=== PATIENT | male | born 1935 | race Caucasian/White ===

== ENCOUNTER 2024-07-27 12:53 | Inpatient (IN) | payer MEDICARE, SELFPAY ==
[2024-07-27] VITALS (26 sets, daily range): BP systolic 107–166; BP diastolic 67–117; PULSE 95–132; RESP 16–37; TEMP 36.6–38.8; O2SAT 90–100; BMI 28.8
--- NOTE | ~2024-07-27 | CT_ITS ---
CLINICAL INDICATION: Flank pain COMPARISON: None. TECHNIQUE: Multiple contiguous axial images of the abdomen and pelvis were performed without the admi nistration of intravenous contrast The dose-length product (DLP) was 706.54 mGy-cm. Automated exposure control and iterative reconstruction technique were employed. FINDINGS/OBSERVATIONS: Visualized lower thorax: Interstitial thickening with bibasilar atelectasis. The heart is enlarged, without pericardial effusion. Small hiatal hernia is present. Liver: The liver demonstrates homogeneous attenuation and is not enlarged measuring 18 cm in longitudinal di mension. Gallbladder and biliary system: The gallbladder is distended, and otherwise unremarkable. Pancreas: Limited evaluation of the pancreas secondary to the lack of intravenous contrast. Spleen: The spleen demonstrates homogeneous attenuation and is not enlarged measuring 11 cm in longitudinal d imension. Kidneys: Left-sided hydroureteronephrosis extending to the distal left ureter where a 4 mm calculus is identif ied. Additional calculus is identified along the base of the bladder, to the left of midline measuring 3.7 mm. An additional calculus is identified within the bladder, to the right of midline measuring 2 mm. Bilateral hydroureteronephrosis is identified. Multiple nonobstructing left renal calculi are identified. Multiple areas of decreased attenuation are identified within the bilateral kidneys, for which focuse d ultrasound may be performed for confirmation. Multiple anechoic avascular foci within the bilateral kidneys, likely representing simple cysts. Adrenal glands: Unremarkable Gastrointestinal tract: Fecal stasis within the colon. Appendix: The appendix is not definitively visualized. However, no pericecal inflammatory change is identified suggest the presence of acute appendicitis. Vasculature: Only trace calcified atherosclerotic disease is present. Lymph nodes: Limited evaluation without intravenous contrast. Pelvic structures: The bladder is distended, and otherwise unremarkable. The prostate gland is enlarged and contains bulky calcifications and demonstrates mass effect on the base of the bladder. Body wall and musculoskeletal: Small fat-containing umbilical hernia. Age-indeterminate fracture at the level of T11, as detailed above. IMPRESSION: Bilateral hydroureteronephrosis secondary to calculi within the left-sided ureter as well as dependen t within the bladder (possibly recently passed). Reviewed, dictated and finalized at location A. LER OPERATOR IMPRESSION: Bilateral hydroureteronephrosis secondary to calculi within the left-sided uret er as well as dependent within the bladder (possibly recently passed).
--- NOTE | ~2024-07-27 | XR_ITS ---
EXAMINATION: XR retrograde pyelo w/stent BI DATE: 07/27/2024 16:50 INSPECTOR PACKER INDICATION: BILATERAL STONES . TECHNIQUE: 8 fluoroscopic images of the abdomen and pelvis were obtained during bilateral retrograde pyelography with stent placement, performed by Dr. Constantino. I was not present during the procedure. Fluoroscopy exposure time was 44.4 seconds. Air Kerma 18.73 mGy. DAP 0.80815 mGym2. COMPARISON: CT abdomen pelvis, same date FINDINGS/IMPRESSION: Fluoroscopic documentation of bilateral retrograde pyelography with stent placement. Please refer to the operative note for complete procedural details . Reviewed, dictated and finalized at location K. ECTOR PACKER
--- NOTE | ~2024-07-27 | XR_ITS ---
CHEST RADIOGRAPH CLINICAL HISTORY: weakness . COMPARISON: None available TECHNIQUE: Single portable view of the chest. FINDINGS The cardiomediastinal silhouette is unremarkable. Coarse interstitial lung markings within the bilateral lung bases, likely chronic. No focal infiltrate or effusion is present IMPRESSION: No focal infiltrate or effusion. Reviewed, dictated and finalized at location A. RAL HOUSE WORKER
--- NOTE | ~2024-07-27 | US_ITS ---
EXAMINATION: US renal BI DATE: 07/28/2024 10:30 INDICATION: Acute kidney injury. TECHNIQUE: Multiple ultrasound grayscale images of the kidneys were obtained. COMPARISON: CT abdomen and pelvis 07/27/2024 FINDINGS: The right kidney measures 12.8 x 5.1 x 3.6 cm. The left kidney measures 12.4 x 6.3 x 5.4 cm. The kidn eys demonstrate normal parenchymal echogenicity. There are cysts in the kidneys measuring up to 5.4 c m on the left. There is no hydronephrosis. The bladder is decompressed by a Gregory catheter. IMPRESSION: 1. Normal kidney sizes. No hydronephrosis. Reviewed, dictated and finalized at location A. L INSTALLER INSPECTOR
--- NOTE | 2024-07-27 12:57 | ECG_ITS ---
Test Date: 2024-07-27 12:59:49 Measurements Intervals [place] Rate: 120 P: 47 NM: 185 QRS: -34 QRSD: 83 T: -16 QT: 325 QTc: 460 Interpretive Statements SINUS TACHYCARDIA LEFT AXIS DEVIATIO POOR R WAVE PROGRESSION T WAVE ABNORMALITY IN INFERIOR LEADS- CONSIDER ISCHEMIA BASELINE ARTIFACT- I, III, AVR, AVL, AVF, V1-V6 ABNORMAL ECG No previous ECG available for comparison Electronically Signed On 07-27-2024 13:43:24 [employer] E[employer] DEVELOPER by Gautam Thompson D.O.
[2024-07-27] MEDS: SODIUM CHLORIDE 0.9% IV 1,000 ML 150 ML IV CONT (13:08)
[2024-07-27 13:24] LABS: Alanine Aminotransferase 61 U/L (6-50); Albumin Level 4.2 g/dL (3.5-5.1); Alkaline Phosphatase 78 U/L (38-126); Anion Gap 17 mmol/L (4-12); Aspartate Amino Transferase 90 U/L (17-59); Bilirubin,Total 5.8 mg/dL (0.2-1.3); Blood Urea Nitrogen 49 mg/dL (9-20); Calcium 9.5 mg/dL (8.4-10.2); Carbon Dioxide 16 mmol/L (22-30); Chloride 111 mmol/L (98-107); Estimated CRCL calculation 18 ml/min; Estimated Glomerular Filt Rate 21; Glucose 171 mg/dL (65-110); Potassium 4.5 mmol/L (3.4-5.0); Sodium 144 mmol/L (137-145)
[2024-07-27 13:41] LABS: Add Urine Microscopic? YES; Amorphous Sediment Urine Few; Appearance Urine Turbid (Clear); Bacteria Urine 4+ /hpf; Bilirubin Urine Negative (Negative); Blood Urine 2+ (Negative); Color Urine Yellow (Yellow); Glucose Urine UA Negative (Negative); Ketones Urine Trace mg/dL (Negative); Leukocyte Esterase Ur 3+ LEU/UL (Negative); Need Manual Microscopic Reviewed; Nitrate Urine Negative (Negative); Protein Urine 2+ mg/dL (Negative); Specific Grav Ur 1.012 (1.001-1.035); Squamous Epithelial Cell Urine None Seen /hpf (Few); WBC Urine >100 /hpf (0-3); pH Urine 8.5 (5.0-9.0)
[2024-07-27 14:03] LABS: Influenza A QL RT-PCR Negative (Negative); Influenza B QL RT-PCR Negative (Negative); RSV RNA, RT-PCR Negative (Negative); SARS-CoV-2 RNA PCR Negative (Negative)
[2024-07-27 14:23] LABS: Hematocrit 46.6 % (42.0-52.0); Mean Corpuscular HGB Conc 36.5 g/dl (32-36); Mean Corpuscular Hemoglobin 34.4 pg (26-34); Mean Corpuscular Volume 94.3 fl (80-100); Mean Platelet Volume 10.3 fl (7.4-10.4); Platelet Count Result 246 k/mm3 (150-375); Red Blood Count 4.94 M/mm3 (4.6-6.20); White Blood Count 17.7 K/mm3 (4.5-10.0)
[2024-07-27 14:54] LABS: Band Neutrophils Percent 5 % (0-6); Lymphocytes Absolute Manual 0.35 K/mm3 (1.1-4.5); Monocytes Absolute Manual 1.23 K/mm3 (0.1-0.90); Monocytes Percent Manual 7 % (3-9); Neutrophils Percent Manual 86 % (46-73); Platelet Estimate Adequate (Adequate); Total Cells Counted 100
[2024-07-27 14:55] LABS: Schistocytes None Seen
--- NOTE | 2024-07-27 14:55 | ED_ITS ---
HPI - General Adult General Chief complaint: Weakness Stated complaint: weakness, fever Time Seen by Provider: 07/27/24 13:03 Source: patient Mode of arrival: EMS Limitations: no limitations History of Present Illness HPI narrative: 88-year-old with a history of hypertension, BPH here with a complaint of having fever, lower abdominal discomfort and dysuria for the last few days. Family noticed this morning he is found to be very lethargic. He denies any nausea or vomiting. Denies any cough or shortness of breath or chest pain. Onset (ago): day(s) (1) Location: abdomen Severity: moderate Pain Consistency: constant Relieving factors: none Exacerbating factors: none Associated symptoms: weakness Treatments prior to arrival: none Related Data Allergies Allergy/AdvReac Type Severity Reaction Status Date / Time No Known Allergies Allergy Verified 07/27/24 13:05 Review of Systems 2 Review of Systems: All systems reviewed & are unremarkable except as noted in HPI and below Constitutional: Constitutional: Reports no additional constitutional complaints Eyes: Eyes: Reports no additional eye complaints ENT: Reports system reviewed and no additional complaints, except as documented Cardiovascular: Cardiovascular: Reports no additional cardiovascular complaints Respiratory: Respiratory: Reports no additional respiratory complaints Gastrointestinal: Gastrointestinal: Reports as per HPI Genitourinary: Genitourinary: Reports as per HPI Integumentary/Breasts: Skin/Breast: Reports system reviewed and no additional complaints, except as docu Neurologic: Reports system reviewed and no additional complaints, except as documented Endocrine: Endocrine: Reports no additional endocrine complaints Exam 2 Narrative: GENERAL: Well-appearing, well-nourished, and in no acute distress. HEAD: Normocephalic, atraumatic. EYES: PERRLA and EOMI. ENT: Nares clear, no rhinorrhea or epistaxis. Mucous membranes moist. NECK: Supple. CHEST: Clear to auscultation. No respiratory distress. HEART: Regular rate and rhythm. No murmur heard. Normal peripheral pulses. ABDOMEN: Soft, supra pubic tendeness , nondistended, normal active bowel sounds. EXTREMITIES: Normal range of motion. No edema. SKIN: Warm, dry, no rash. NEURO: No focal deficits. Alert and oriented x3. PSYCH: Normal mood and affect. Course Course Emergency Course: Inform patient about the lab work, CT findings. Discussed with the hospitalist will accept the patient consult urology Vital Signs Vital signs: Vital Signs Temperature 37.4 C 07/27/24 12:49 Pulse Rate 119 H 07/27/24 12:49 Respiratory Rate 32 H 07/27/24 12:49 Blood Pressure 145/91 H 07/27/24 12:49 Pulse Oximetry 92 07/27/24 12:49 Oxygen Delivery Nasal Cannula 07/27/24 12:49 Oxygen Flow Rate 2 07/27/24 12:49 Temperature 37.4 C 07/27/24 12:49 Pulse Rate 108 H 07/27/24 15:11 Respiratory Rate 18 07/27/24 15:11 Blood Pressure 131/92 H 07/27/24 15:11 Pulse Oximetry 95 07/27/24 15:11 Oxygen Delivery Nasal Cannula 07/27/24 13:07 Oxygen Flow Rate 2 07/27/24 13:07 Medical Decision Making Medical Records Medical records reviewed: Yes I reviewed the external patient's medical records. Vital Signs Vital Signs: Vital Signs Temperature 37.4 C 07/27/24 12:49 Pulse Rate 119 H 07/27/24 12:49 Respiratory Rate 32 H 07/27/24 12:49 Blood Pressure 145/91 H 07/27/24 12:49 Pulse Oximetry 92 07/27/24 12:49 Oxygen Delivery Nasal Cannula 07/27/24 12:49 Oxygen Flow Rate 2 07/27/24 12:49 Temperature 37.4 C 07/27/24 12:49 Pulse Rate 108 H 07/27/24 15:11 Respiratory Rate 18 07/27/24 15:11 Blood Pressure 131/92 H 07/27/24 15:11 Pulse Oximetry 95 07/27/24 15:11 Oxygen Delivery Nasal Cannula 07/27/24 13:07 Oxygen Flow Rate 2 07/27/24 13:07 Lab Data Lab results reviewed: Yes I reviewed the patient's lab results. 07/27/24 13:04 07/27/24 13:04 Labs: Lab Results 07/27/24 07/27/24 07/27/24 Range/Units 13:04 13:19 15:16 WBC 17.7 H (4.5-10.0) K/mm3 RBC 4.94 (4.6-6.20) M/mm3 Hgb 17.0 (14.0-18.0) g/dL Hct 46.6 (42.0-52.0) % MCV 94.3 (80-100) fl MCH 34.4 H (26-34) pg MCHC 36.5 H (32-36) g/dl RDW 14.0 (11.5-14.5) % Plt Count 246 (150-375) k/mm3 MPV 10.3 (7.4-10.4) fl Immature Gran % (Auto) Not Reportable Neut % (Auto) Not Reportable Lymph % (Auto) Not Reportable [place] % (Auto) Not Reportable Eos % (Auto) Not Reportable Baso % (Auto) Not Reportable Lymph # (Auto) Not Reportable [place] # (Auto) Not Reportable Eos # (Auto) Not Reportable Baso # (Auto) Not Reportable Abs Immat Gran (auto) Not Reportable Absolute Neuts (auto) Not Reportable Absolute Nucleated RBC Not Reportable Total Counted 100 Neutrophils % (Manual) 86 H (46-73) % Band Neutrophils % 5 (0-6) % Lymphocytes % (Manual) 2.0 L (18-44) % Monocytes % (Manual) 7 (3-9) % Nucleated RBC % Not Reportable Abs Neuts (Manual) 16.10 H (1.3-6.7) K/mm3 Abs Lymphs (Manual) 0.35 L (1.1-4.5) K/mm3 Abs Monocytes (Manual) 1.23 H (0.1-0.90) K/mm3 Platelet Estimate Adequate (Adequate) Schistocytes None seen Sodium 144 (137-145) mmol/L Potassium 4.5 (3.4-5.0) mmol/L Chloride 111 H (98-107) mmol/L Carbon Dioxide 16 L (22-30) mmol/L Anion Gap 17 H (4-12) mmol/L BUN 49 H (9-20) mg/dL Creatinine 2.82 H (0.7-1.3) mg/dL Estim Creat Clear Calc 18 ml/min Estimated GFR 21 L (59 - ) Glucose 171 H (65-110) mg/dL Lactic Acid 2.0 (0.7-2.0) mmol/L Calcium 9.5 (8.4-10.2) mg/dL Total Bilirubin 5.8 H (0.2-1.3) mg/dL Direct Bilirubin 0.6 H (0-0.3) mg/dL Indirect Bilirubin 4.4 H (0-1.1) mg/dL AST 90 H (17-59) U/L ALT 61 H (6-50) U/L Alkaline Phosphatase 78 (38-126) U/L Total Creatine Kinase 708 H (55-170) U/L Total Protein 8.0 (6.3-8.2) g/dL Albumin 4.2 (3.5-5.1) g/dL Lipase 32 (23-300) U/L Urine Color Yellow (Yellow) Urine Appearance Turbid H (Clear) Urine pH 8.5 (5.0-9.0) Ur Specific [place] 1.012 (1.001-1.035) Urine Protein 2+ H (Negative) mg/dL Urine Glucose (UA) Negative (Negative) mg/dL Urine Ketones Trace H (Negative) mg/dL Ur Blood (Man) 2+ H (Negative) Urine Nitrate Negative (Negative) Urine Bilirubin Negative (Negative) Urine Urobilinogen 1.0 (<2.0) mg/dL Add Ur Microanalysis Reviewed Leukocyte Esterase Rfl 3+ H (Negative) JONI/UL Urine RBC 11-20 H (0-2) /hpf Urine WBC >100 H (0-3) /hpf Ur Squamous Epith Cells None seen (Few) /hpf Amorphous Sediment Few H (None) Urine Bacteria 4+ H /hpf Urine Casts 11-20 Hepatitis A IgM Ab Pending Hep Bs Antigen Pending Hep B Core IgM Ab Pending Hepatitis C Ab Screen Pending Influenza A (RT-PCR) Negative (Negative) Influenza B (RT-PCR) Negative (Negative) RSV (RT-PCR) Negative (Negative) SARS-CoV-2 RNA (RT-PCR) Negative (Negative) Imaging Data Radiologist's impression: ITS Impressions Chest X-Ray 07/27/24 13:29 IMPRESSION: No focal infiltrate or effusion. Abdomen/Pelvis CT 07/27/24 14:23 IMPRESSION: Bilateral hydroureteronephrosis secondary to calculi within the left-sided ureter as well as dependent within the bladder (possibly recently passed). ECG Data EKG #1: ECG completion date: 07/27/24 ECG completion time: 12:59 EKG Interpretation: tachycardia (120), sinus rhythm, no ST changes, left axis and no acute changes Discharge Plan Discharge Clinical Impression: SIRS (systemic inflammatory response syndrome), Acute UTI, Left ureteral stone Patient Disposition: Still a Patient Condition: Stable Patient Language: Slovak
--- NOTE | 2024-07-27 15:00 | PM.IMHP ---
H&P: HPI History of Present Illness Date/Time: 07/27/24 15:00 Chief Complaint: Abdominal pain, weakness, fever. Narrative: This is a pleasant 88-year-old male with history of dementia, stroke, hypertension, and benign prostatic hyperplasia who presented to the emergency department via EMS from home for evaluation of abdominal pain, weakness, and fever. The patient and his family provide the following history. The patient's has been in rehab and it is my understanding that she came home either yesterday or today. The patient seemed to be in his usual state of health at that time however he admits that he has been feeling weak for a couple of days and with further questioning he endorses abdominal discomfort nausea, vomiting, and dysuria. He was lethargic this morning and felt warm so EMS was summoned. His temperature was reportedly 102? F en route to the hospital. He denies headache, sinus congestion, sore throat, chest pain, cough, and diarrhea. In the ED: He was tachycardic and tachypneic on arrival with stable blood pressures. Labs are significant for WBC count of 17.7, chloride 111, carbon dioxide 16, anion gap 17, BUN 49, creatinine 2.82, glucose 171, lactic acid 2.0, total bilirubin 5.8, AST 90, ALT 61, alkaline phosphatase 78. Urinalysis was positive for 2+ protein, trace ketones, 2+ blood, 3+ leukocyte esterase, 11 to 20 RBC, greater than 100 WBC, and 4+ bacteria. He tested negative for influenza, RSV, and COVID. Chest x-ray showed no focal infiltrate or effusion. CT of the abdomen and pelvis showed bilateral hydroureteronephrosis secondary to calculi within the left-sided ureter as well as dependent within the bladder (possibly recently passed). He received ceftriaxone 1 gm and was taken to the OR. In PACU he was shivering and received Demerol with improvement. He had a brief episode of tachycardia but that has since resolved. He has no current complaints. Review of Systems Review of Systems: 12 systems were reviewed and are negative except for as per HPI. [facility] Past Medical History Medical History (Updated 07/27/24 @ 23:39 by Eleonora Lopez PA-C) Benign prostatic hyperplasia Glaucoma Hypertension Dementia Cerebrovascular accident Surgical History Surgical History (Updated 07/27/24 @ 23:39 by Eleonora Lopez PA-C) History of placement of ureteral stent History of cystoscopy Family History Family History Other Unknown family medical history Social History Social History Social History: Surrogate medical decision maker: Haley Gallardo, spouse ([phone]). Code status: Full code. Smoking status: Former smoker Alcohol intake: never Substance use: never Do You Feel Safe in your Home?: Yes Lack of Transportation: No Lack of Food: Never True Current Housing: I Have Housing Concerned About Future Housing: No Difficulty Paying Gas/Electric Bills: No Difficulty Paying for Meds: No Currently Unemployed: No Education: Grade School Difficulty w/ Childcare or Family Care: No Spiritual care concerns: Yes Meds Home Medications and Allergies Home Medications ?Medication ?Instructions ?Recorded ?Confirmed ?Type finasteride 5 mg tablet 5 mg PO DAILY 07/27/24 07/27/24 History lisinopril 20 mg tablet 20 mg PO DAILY 07/27/24 07/27/24 History tamsulosin 0.4 mg capsule 0.4 mg PO Q24H 07/27/24 07/27/24 History Allergies Allergy/AdvReac Type Severity Reaction Status Date / Time No Known Allergies Allergy Verified 07/27/24 13:05 Vital Signs Vital Signs - 24 hr 07/27/24 12:49 07/27/24 13:07 07/27/24 13:08 Temperature 99.3 F Pulse Rate 119 H 118 H Respiratory Rate 32 H Blood Pressure 145/91 H Pulse Oximetry 92 92 Oxygen Delivery Nasal Cannula Nasal Cannula Oxygen Flow Rate 2 2 07/27/24 13:21 07/27/24 13:31 Temperature Pulse Rate 117 H 115 H Respiratory Rate 37 H 32 H Blood Pressure 137/90 118/85 Pulse Oximetry 94 94 Oxygen Delivery Oxygen Flow Rate Exam Narrative: General: Mildly ill-appearing elderly gentleman sitting up in bed. Weight: 96.4 kg. BMI: 28.8. HEENT: Normocephalic, atraumatic. Sclera anicteric. Arcus senilis. Tacky mucous membranes. Neck: Supple. Respiratory: Lungs are clear to auscultation bilaterally. Cardiovascular: Regular rate and rhythm with S1-S2. Gastrointestinal: Abdomen is soft, nontender, and nondistended with positive bowel sounds. No guarding or rebound tenderness. Genitourinary: Gregory catheter draining light pink fluid. Skin: Warm and dry. Normal capillary refill. Extremities are warm and perfused. Extremities: No cyanosis, clubbing, or edema. Radial and pedal pulses intact. Neurological: Alert to me date of , and place. Cranial nerves 2-12 are grossly intact. Speech is clear. No facial asymmetry. Generalized weakness without gross focal findings. Psychiatric: Pleasant cooperative with appropriate mood. He is a bit confused. H&P: Results Labs Labs: Short CBC 07/27/24 Range/Units 13:04 WBC 17.7 H (4.5-10.0) K/mm3 Hgb 17.0 (14.0-18.0) g/dL Hct 46.6 (42.0-52.0) % Plt Count 246 (150-375) k/mm3 BMP 07/27/24 13:04 Sodium 144 Potassium 4.5 Chloride 111 H Carbon Dioxide 16 L BUN 49 H Creatinine 2.82 H Glucose 171 H Calcium 9.5 Liver Function 07/27/24 Range/Units 13:04 Total Bilirubin 5.8 H (0.2-1.3) mg/dL AST 90 H (17-59) U/L ALT 61 H (6-50) U/L Alkaline Phosphatase 78 (38-126) U/L Albumin 4.2 (3.5-5.1) g/dL Urine 07/27/24 Range/Units 13:19 Urine Color Yellow (Yellow) Urine Appearance Turbid H (Clear) Urine pH 8.5 (5.0-9.0) Ur Specific [place] 1.012 (1.001-1.035) Urine Protein 2+ H (Negative) mg/dL Urine Glucose (UA) Negative (Negative) mg/dL Imaging Chest X-Ray 07/27/24 13:29 IMPRESSION: No focal infiltrate or effusion. Abdomen/Pelvis CT 07/27/24 14:23 IMPRESSION: Bilateral hydroureteronephrosis secondary to calculi within the left-sided ureter as well as dependent within the bladder (possibly recently passed). Assessment and Plan Assessment and plan (1) Sepsis: Code(s): A41.9 - Sepsis, unspecified organism Status: Acute (2) Urinary tract infection: Code(s): N39.0 - Urinary tract infection, site not specified Status: Acute (3) Left ureteral stone: Code(s): N20.1 - Calculus of ureter Status: Acute (4) Hydroureteronephrosis: Code(s): N13.30 - Unspecified hydronephrosis Status: Acute (5) Acute kidney injury: Code(s): N17.9 - Acute kidney failure, unspecified Status: Acute (6) Transaminitis: Code(s): R74.01 - Elevation of levels of liver transaminase levels Status: Acute Plan The patient presented to the emergency department with complaints of abdominal pain, fever, and weakness as detailed in HPI. He meets sepsis criteria with fever, tachycardia, leukocytosis, acute kidney injury, and hyperbilirubinemia with a SOFA score of at least 4. Source of infection is a urinary tract infection related with obstructing ureterolithiasis. He has never been seen at this facility before thus there are no micro reports and he has been started on empiric ceftriaxone, pending blood and urine cultures. He has a presumed acute kidney injury with a BUN and creatinine of 49 and 2.82 respectively, in part due to hydroureteronephrosis from stones and also likely some component related to sepsis. CT scan also shows a distended bladder with enlarged prostate. Records requested from his primary care provider for comparison. He is being judiciously hydrated with close monitoring of volume status, renal function, and electrolytes. Renal ultrasound ordered for tomorrow to ensure the hydronephrosis is improving post stent placement. All medications will be renally dosed and nephrotoxic agents will be avoided. AST and ALT are a bit elevated however total bilirubin is 5.8. No findings noted on CT scan to correlate. Continue to monitor for now and check hepatitis panel, total CK, and fractionate bilirubin. Right upper quadrant ultrasound also ordered. Blood pressures have been stable thus far and will be monitored closely. His home medications will be reviewed and resumed as appropriate. Findings and treatment plan were discussed with the patient. Questions were solicited and answered to satisfaction. The patient's medical management will be taken over by the hospitalist team in a.m. Quality VTE Prophylaxis VTE prophylaxis: mechanical ordered If No VTE Prophylaxis Answer both mechanical and pharmacologic: Reason no pharmacologic proph: medical contraindication (to OR this afternoon) Hospitalist [facility] [place] Advance Care Plan I have confirmed that the patient's Advanced Care Plan is present, code status is documented, or surrogate decision maker is listed in patient medical record.: Yes Medication Reconciliation I have utilized all available resources to obtain, update and review the patients current medications (includes all prescriptions, OTC, herbals, cannabis, and nutritional supplements).: Yes
--- NOTE | 2024-07-27 15:27 | PC.NURSE ---
pt had half of 1Gm Rocephin administered IV before order was switched to 2Gm. notified ED provider Dr. Escoto who states to continue the original 1Gm and to give a second 1Gm, instead of administering an aditional 2Gm dose of Rocephin.
[2024-07-27 15:34] LABS: Bilirubin Direct 0.6 mg/dL (0-0.3); Bilirubin Indirect 4.4 mg/dL (0-1.1); Creatine Kinase 708 U/L (55-170); Lipase 32 U/L (23-300)
--- NOTE | 2024-07-27 15:47 | PC.NURSE ---
Galina Ramos PA-C [facility] to hold off on 2nd gram of Rocephin and to just continue 1st gram. pt has received a total of 1Gm of IV Rocephin over 30min.
[2024-07-27 16:01] LABS: Hepatitis B Surface Antigen Negative (Negative)
[2024-07-27 16:07] LABS: HAV RESULT Negative (Negative); Hepatitis B Core IgM Result Negative (Negative)
--- NOTE | 2024-07-27 16:08 | P.CONUR_ITS ---
Assessment and Plan Assessment and plan (1) Left ureteral stone: Code(s): N20.1 - Calculus of ureter Status: Acute Assessment and Plan: given infection will plan on cystoscopy, with rpg and stent placement on left. If stone easily accesible may retrieve. (2) Hydroureteronephrosis: Code(s): N13.30 - Unspecified hydronephrosis Status: Acute Assessment and Plan: bilateral hydro may be secondary to distended bladder/retention but will plan on bilateral stent placement with retrogrades to offer maximal drainage. (3) Urinary tract infection: Code(s): N39.0 - Urinary tract infection, site not specified Status: Acute Assessment and Plan: culture and treat empirically (4) Sepsis: Code(s): A41.9 - Sepsis, unspecified organism Status: Acute Assessment and Plan: managed by medical service. Urology Consult Note HPI Date Seen: 07/27/24 Time Seen: 16:08 Requesting Physician: Edwin Rutherford MD Primary Care Provider: UNKNOWN,DOCTOR Consult Narrative Reason for consult: sepsis with obstructing left ureteral calculus and bilateral hydro Narrative: Bernardo Gallardo is a 88 year old male who presented with fever, abdominal pain and lethargy with some confusion. CT reveals bilateral hydro with distal 4mm left ureteral calculus. WBC elevated at 17 and creatinine elevated 2.8 Review of Systems 2 Review of Systems: All systems reviewed & are unremarkable except as noted in HPI and below Meds Home Medications and Allergies Allergies Allergy/AdvReac Type Severity Reaction Status Date / Time No Known Allergies Allergy Verified 07/27/24 13:05 Vital Signs Vital Signs - 24 hr 07/27/24 12:49 07/27/24 13:07 07/27/24 13:08 Temperature 37.4 C Pulse Rate 119 H 118 H Respiratory Rate 32 H Blood Pressure 145/91 H Pulse Oximetry 92 92 Oxygen Delivery Nasal Cannula Nasal Cannula Oxygen Flow Rate 2 2 07/27/24 13:21 07/27/24 13:31 07/27/24 13:46 Temperature Pulse Rate 117 H 115 H 115 H Respiratory Rate 37 H 32 H 25 H Blood Pressure 137/90 118/85 119/86 Pulse Oximetry 94 94 93 Oxygen Delivery Oxygen Flow Rate 07/27/24 14:30 07/27/24 15:11 Temperature Pulse Rate 107 H 108 H Respiratory Rate 27 H 18 Blood Pressure 131/92 H Pulse Oximetry 95 95 Oxygen Delivery Oxygen Flow Rate Exam 2 Const: General: confusion Resp: Effort & Inspection: normal respiratory effort Results Labs 07/27/24 13:04 07/27/24 13:04 Labs: Short CBC 07/27/24 Range/Units 13:04 WBC 17.7 H (4.5-10.0) K/mm3 Hgb 17.0 (14.0-18.0) g/dL Hct 46.6 (42.0-52.0) % Plt Count 246 (150-375) k/mm3 BMP 07/27/24 13:04 Sodium 144 Potassium 4.5 Chloride 111 H Carbon Dioxide 16 L BUN 49 H Creatinine 2.82 H Glucose 171 H Calcium 9.5 Cardiac Enzymes 07/27/24 Range/Units 15:16 Total Creatine Kinase 708 H (55-170) U/L Liver Function 07/27/24 07/27/24 Range/Units 13:04 15:16 Total Bilirubin 5.8 H (0.2-1.3) mg/dL Direct Bilirubin 0.6 H (0-0.3) mg/dL AST 90 H (17-59) U/L ALT 61 H (6-50) U/L Alkaline Phosphatase 78 (38-126) U/L Albumin 4.2 (3.5-5.1) g/dL Urine 07/27/24 Range/Units 13:19 Urine Color Yellow (Yellow) Urine Appearance Turbid H (Clear) Urine pH 8.5 (5.0-9.0) Ur Specific [place] 1.012 (1.001-1.035) Urine Protein 2+ H (Negative) mg/dL Urine Glucose (UA) Negative (Negative) mg/dL
--- NOTE | 2024-07-27 16:13 | WPDHPUPDATE1 ---
History and Physical Update Update Date/Time: 07/27/24 16:13 History and Physical has been reviewed, including an updated exam of the patient. There are NO changes in the patient's condition. Risks, benefits, and alternatives have been discussed and questions answered. Patient agrees to proceed with procedure. Proceed with cystoscopy with bilateral retrogrades, bilateral stent placement , possible left ureteroscopy with stone extraction.
[2024-07-27 16:19] LABS: Hepatitis C Virus Antibody Negative (Negative)
--- NOTE | 2024-07-27 16:38 | WPDANESEPPF ---
Anes - Initial Pre Proc Eval Procedure: Operation Date: 07/27/24 16:15 Proposed Procedures p Cystoscopy, Bilateral Stent Placement, Possible Right Ureteroscopy, Possible Retrograde Pyelogram, Possible Laser Lithotripsy(Bilateral) - Usman Constantino MD Date/Time: 07/27/24 16:38 Surgeon: Dougie Pre Op Diagnosis: Infected ureteral stone, TAVIA Patient Data Age: 88 Gender: M Height: 1.83 m Weight: 93 kg Last Vital Signs Temp 37.4 C 07/27/24 12:49 Pulse 108 H 07/27/24 15:11 Resp 18 07/27/24 15:11 BP 131/92 H 07/27/24 15:11 Pulse Ox 95 07/27/24 15:11 O2 Del Method Nasal Cannula 07/27/24 13:07 O2 Flow Rate 2 07/27/24 13:07 Allergies Allergy/AdvReac Type Severity Reaction Status Date / Time No Known Allergies Allergy Verified 07/27/24 13:05 Laboratory Tests 07/27/24 07/27/24 07/27/24 13:04 13:19 15:16 WBC 17.7 H K/mm3 (4.5-10.0) RBC 4.94 M/mm3 (4.6-6.20) Hgb 17.0 g/dL (14.0-18.0) Hct 46.6 % (42.0-52.0) MCV 94.3 fl (80-100) MCH 34.4 H pg (26-34) MCHC 36.5 H g/dl (32-36) RDW 14.0 % (11.5-14.5) Plt Count 246 k/mm3 (150-375) MPV 10.3 fl (7.4-10.4) Immature Gran % (Auto) Not Reportable Neut % (Auto) Not Reportable Lymph % (Auto) Not Reportable [place] % (Auto) Not Reportable Eos % (Auto) Not Reportable Baso % (Auto) Not Reportable Lymph # (Auto) Not Reportable [place] # (Auto) Not Reportable Eos # (Auto) Not Reportable Baso # (Auto) Not Reportable Abs Immat Gran (auto) Not Reportable Absolute Neuts (auto) Not Reportable Absolute Nucleated RBC Not Reportable Total Counted 100 Neutrophils % (Manual) 86 H % (46-73) Band Neutrophils % 5 % (0-6) Lymphocytes % (Manual) 2.0 L % (18-44) Monocytes % (Manual) 7 % (3-9) Nucleated RBC % Not Reportable Abs Neuts (Manual) 16.10 H K/mm3 (1.3-6.7) Abs Lymphs (Manual) 0.35 L K/mm3 (1.1-4.5) Abs Monocytes (Manual) 1.23 H K/mm3 (0.1-0.90) Platelet Estimate Adequate (Adequate) Schistocytes None seen Sodium 144 mmol/L (137-145) Potassium 4.5 mmol/L (3.4-5.0) Chloride 111 H mmol/L (98-107) Carbon Dioxide 16 L mmol/L (22-30) Anion Gap 17 H mmol/L (4-12) BUN 49 H mg/dL (9-20) Creatinine 2.82 H mg/dL (0.7-1.3) Estim Creat Clear Calc 18 ml/min Estimated GFR 21 L (59 - ) Glucose 171 H mg/dL (65-110) Lactic Acid 2.0 mmol/L (0.7-2.0) Calcium 9.5 mg/dL (8.4-10.2) Total Bilirubin 5.8 H mg/dL (0.2-1.3) Direct Bilirubin 0.6 H mg/dL (0-0.3) Indirect Bilirubin 4.4 H mg/dL (0-1.1) AST 90 H U/L (17-59) ALT 61 H U/L (6-50) Alkaline Phosphatase 78 U/L (38-126) Total Creatine Kinase 708 H U/L (55-170) Total Protein 8.0 g/dL (6.3-8.2) Albumin 4.2 g/dL (3.5-5.1) Lipase 32 U/L (23-300) Urine Color Yellow (Yellow) Urine Appearance Turbid H (Clear) Urine pH 8.5 (5.0-9.0) Ur Specific [place] 1.012 (1.001-1.035) Urine Protein 2+ H mg/dL (Negative) Urine Glucose (UA) Negative mg/dL (Negative) Urine Ketones Trace H mg/dL (Negative) Ur Blood (Man) 2+ H (Negative) Urine Nitrate Negative (Negative) Urine Bilirubin Negative (Negative) Urine Urobilinogen 1.0 mg/dL (<2.0) Add Ur Microanalysis Reviewed Leukocyte Esterase Rfl 3+ H JONI/UL (Negative) Urine RBC 11-20 H /hpf (0-2) Urine WBC >100 H /hpf (0-3) Ur Squamous Epith Cells None seen /hpf (Few) Amorphous Sediment Few H (None) Urine Bacteria 4+ H /hpf Urine Casts 11-20 Hepatitis A IgM Ab Negative (Negative) Hep Bs Antigen Negative (Negative) Hep B Core IgM Ab Negative (Negative) Hepatitis C Ab Screen Negative (Negative) Influenza A (RT-PCR) Negative (Negative) Influenza B (RT-PCR) Negative (Negative) RSV (RT-PCR) Negative (Negative) SARS-CoV-2 RNA (RT-PCR) Negative (Negative) Patient hx anesthesia problems: none Family hx anesthesia problems: none Results Review: All pre-operative results and documents have been reviewed as part of the pre-operative evaluation. Anes - Eval Final PreProcedure Day of Procedure 07/27/24 16:38 Patient weight: overweight Heart: regular rate and rhythm Lungs: clear to auscultation Airway: Mallampati scale class II Neurological: alert and oriented Last oral intake: >/= 8 hours ASA classification: IV Emergent: yes Anesthetic plan: proceed Anesthesia type and monitoring: general LMA and standard monitoring Results Review: All pre-operative results and documents have been reviewed as part of the pre-operative evaluation. Informed Consent: The patient's anesthetic plan and its attendant risks and benefits were discussed with the patient/family/POA. Questions were solicited and answers provided to the satisfaction of the patient/family/POA.
[2024-07-27] MEDS: LACTATED RINGERS 1,000 ML 30 ML IV CONT ×2 (16:50→18:18)
--- NOTE | 2024-07-27 17:36 | P.OP_ITS ---
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 Difficulty finding ureteral orifices. Heavily trabeculated bladder. Description of Procedure Patient is taken to the operative suite correctly identified. Once anesthesia was obtained was placed in dorsal lithotomy position and prepped draped usual sterile fashion. Twenty-two Swedish scope was inserted into the bladder. He has an enlarged vascular obstructing prostate with a large median lobe. Simply placement of the catheter there was immediate return to turn of extremely purulent urine. Reinspection reveals a heavily trabeculated bladder. Was difficult to to any great evaluation due to the bleeding from the prostatic fossa. Was able to finally find the left ureteral orifice. [place] was inserted and a pyelogram was performed. The stone was never visualized. Sensor wire was inserted up into the left renal pelvis. Six Swedish contour stent was placed with the proximal end coiled in the renal pelvis and the distal end in the bladder. Similar procedure was done on the right side. 2% viscous lid ocaine was inserted urethra [address] was placed with 15 cc in the balloon. This was connected to continuous bladder irrigation. Patient is taken recovery stable condition. He will be admitted to the hospitalist service. We will deal with the stone at a later point time once he gets over this acute episode. This completes dictation. Please send a copy of op note to my office Drains Yes Packing No Complications No immediate complications Condition Stable Disposition PACU
[2024-07-27 17:59] LABS: Glucose Point of Care 134 mg/dl (65-105)
[2024-07-27] MEDS: METOPROLOL TARTRATE INJ 5 MG/5 ML VIAL IV PUSH ×2 (18:42→18:49)
[2024-07-27] MEDS: MEPERIDINE HCL INJ (*CRX) 50 MG/ML AMPUL 10 MG IV PUSH (18:53)
--- NOTE | 2024-07-27 18:57 | SUR.PHASEI ---
1829- METAL STAMPING MACHINE OPERATOR Gregg Cunha notified - pt tachycardic and shivering. SOB. METAL STAMPING MACHINE OPERATOR en route to bedside.
--- NOTE | 2024-07-27 18:57 | SUR.PHASEI ---
1840- JOURNEYMAN PATTERNMAKER Gregg Cunha at bedside. New orders for RN to administer metoprolol 5mg IVP (repeat up to 10mg) for tachycardia. 10mg Demerol IVP once for shivering. JOURNEYMAN PATTERNMAKER at bedside.
--- NOTE | 2024-07-27 19:19 | SUR.PHASEI ---
This RN called Galina Lopez at 1843 and gave her an update on patient status. She came to the PACU to assess patient herself. Patient condition improved after medications given by anesthesia.
--- NOTE | 2024-07-27 20:25 | ADMGEN ---
This patient, Bernardo Gallardo, was admitted to Medical Room 344-01. Patient/family oriented to hospital policies and general routines including ID bracelet, bed and alarms, visiting hours, pain management, procedures, bathroom and other care routines, personal items, smoking policy, room service/diet, and visiting hours. Information on how to activate the Rapid Response Team has been discussed. Patient/Family are encouraged to report perceived risks to care and to ask questions if they do not understand what they are told or what they should do.
[2024-07-27 21:31] LABS: Lactate Dehydrogenase 264 U/L (120-246)
[2024-07-27 21:31] LABS: Immature Reticulocyte Fraction 19.3 % (3.0-15.9); Reticulocyte Hemoglobin Conten 35.3 pg (28.2-36.6); Reticulocyte Percent 2.99 % (0.7-4.3); Reticulocytes Absolute 0.14 10^6/uL (0.02-0.10)
[2024-07-27] MEDS: ceFAZolin 1 GM/NS 50 ML 1 GM/50 ML BAG IVPB (21:36)
[2024-07-27 21:44] LABS: Hemoglobin A1C 4.4 % (<5.7)
[2024-07-27 23:36] LABS: Glucose Point of Care 141 mg/dl (65-105)
[2024-07-28] VITALS (18 sets, daily range): BP systolic 90–117; BP diastolic 50–84; PULSE 81–125; RESP 16–24; TEMP 36.5–38.8; O2SAT 93–99
[2024-07-28] MEDS: ACETAMINOPHEN 325 MG TABLET 650 MG PO ×2 (00:42→17:19)
[2024-07-28] MEDS: TAMSULOSIN HCL 0.4 MG CAPSULE PO ×2 (00:42→20:28)
[2024-07-28] MEDS: ceFAZolin 1 GM/NS 50 ML 1 GM/50 ML BAG IVPB (05:34)
[2024-07-28 05:51] LABS: Basophils Percent Auto 0.1 % (0.2-1.2); Hematocrit 38.5 % (42.0-52.0); Hemoglobin 13.9 g/dL (14.0-18.0); Immature Granulocyte Absolute 0.07 K/mm3 (0.00-0.031); Immature Granulocyte Percent A 0.7 % (0-0.5); Lymphocytes Absolute Auto 0.54 K/mm3 (0.9-3.2); Lymphocytes Percent Auto 5.6 % (18.3-44.2); Mean Corpuscular HGB Conc 36.1 g/dl (32-36); Mean Corpuscular Hemoglobin 34.8 pg (26-34); Mean Corpuscular Volume 96.3 fl (80-100); Mean Platelet Volume 10.3 fl (7.4-10.4); Monocytes Absolute Auto 0.6 K/mm3 (0.1-0.6); Monocytes Percent Auto 6.5 % (2.6-8.5); Neutrophils Absolute Auto 8.4 K/mm3 (1.3-6.7); Neutrophils Percent Auto 87.1 % (45.5-73.1); Platelet Count Result 157 k/mm3 (150-375); White Blood Count 9.7 K/mm3 (4.5-10.0)
[2024-07-28 06:03] LABS: Alanine Aminotransferase 69 U/L (6-50); Alkaline Phosphatase 55 U/L (38-126); Anion Gap 8 mmol/L (4-12); Aspartate Amino Transferase 76 U/L (17-59); Bilirubin,Total 2.6 mg/dL (0.2-1.3); Blood Urea Nitrogen 46 mg/dL (9-20); Calcium 7.9 mg/dL (8.4-10.2); Carbon Dioxide 22 mmol/L (22-30); Chloride 112 mmol/L (98-107); Estimated CRCL calculation 27 ml/min; Estimated Glomerular Filt Rate 35; Glucose 120 mg/dL (65-110); Magnesium 2.3 mg/dL (1.6-2.3); Potassium 3.9 mmol/L (3.4-5.0); Sodium 142 mmol/L (137-145)
--- NOTE | 2024-07-28 07:47 | WPDANESPN ---
Anes - Prog Note Post-Op Date/Time: 07/28/24 07:47 Cardiovascular status: normal Respiratory status: normal and other (O2 per NC) Airway patency: baseline Mental status: baseline and other (resting quietly) Post-Op hydration status: normal Vital Signs: Last Vital Signs Temp 37.8 C H 07/28/24 01:42 Pulse 91 07/28/24 04:00 Resp 24 H 07/28/24 00:21 BP 113/73 07/28/24 00:21 Pulse Ox 95 07/28/24 00:21 O2 Del Method Nasal Cannula 07/27/24 21:16 O2 Flow Rate 4 07/27/24 21:16 Pain Score (VAS): 0/10 I/O: Intake & Output 07/27/24 07/27/24 07/28/24 15:59 23:59 07:59 Intake Total 13.3 1100 50 Output Total 8300 1450 Balance 13.3 -7200 -1400 Laboratory Tests 07/28/24 05:18 07/28/24 05:18 07/27/24 07/27/24 07/27/24 13:04 13:19 15:16 WBC 17.7 H RBC 4.94 Hgb 17.0 Hct 46.6 MCV 94.3 MCH 34.4 H MCHC 36.5 H RDW 14.0 Plt Count 246 MPV 10.3 Immature Gran % (Auto) Not Reportable Neut % (Auto) Not Reportable Lymph % (Auto) Not Reportable [place] % (Auto) Not Reportable Eos % (Auto) Not Reportable Baso % (Auto) Not Reportable Lymph # (Auto) Not Reportable [place] # (Auto) Not Reportable Eos # (Auto) Not Reportable Baso # (Auto) Not Reportable Abs Immat Gran (auto) Not Reportable Absolute Neuts (auto) Not Reportable Absolute Nucleated RBC Not Reportable Total Counted 100 Neutrophils % (Manual) 86 H Band Neutrophils % 5 Lymphocytes % (Manual) 2.0 L Monocytes % (Manual) 7 Nucleated RBC % Not Reportable Abs Neuts (Manual) 16.10 H Abs Lymphs (Manual) 0.35 L Abs Monocytes (Manual) 1.23 H Platelet Estimate Adequate Schistocytes None seen Absolute Retic 0.14 H Percent Retic 2.99 Immature Retic Fraction 19.3 H Retic Hgb Content 35.3 Sodium 144 Potassium 4.5 Chloride 111 H Carbon Dioxide 16 L Anion Gap 17 H BUN 49 H Creatinine 2.82 H Estim Creat Clear Calc 18 Estimated GFR 21 L Glucose 171 H POC Capillary Glucose Hemoglobin A1c 4.4 Lactic Acid 2.0 Calcium 9.5 Magnesium Total Bilirubin 5.8 H Direct Bilirubin 0.6 H Indirect Bilirubin 4.4 H AST 90 H ALT 61 H Alkaline Phosphatase 78 Lactate Dehydrogenase 264 H Total Creatine Kinase 708 H Total Protein 8.0 Albumin 4.2 Lipase 32 Urine Color Yellow Urine Appearance Turbid H Urine pH 8.5 Ur Specific [place] 1.012 Urine Protein 2+ H Urine Glucose (UA) Negative Urine Ketones Trace H Ur Blood (Man) 2+ H Urine Nitrate Negative Urine Bilirubin Negative Urine Urobilinogen 1.0 Add Ur Microanalysis Reviewed Leukocyte Esterase Rfl 3+ H Urine RBC 11-20 H Urine WBC >100 H Ur Squamous Epith Cells None seen Amorphous Sediment Few H Urine Bacteria 4+ H Urine Casts 11-20 Hepatitis A IgM Ab Negative Hep Bs Antigen Negative Hep B Core IgM Ab Negative Hepatitis C Ab Screen Negative Influenza A (RT-PCR) Negative Influenza B (RT-PCR) Negative RSV (RT-PCR) Negative SARS-CoV-2 RNA (RT-PCR) Negative LORY, IgG Interpret LORY, Poly Interpret LORY, Complement Interp 07/27/24 07/27/24 07/27/24 17:56 21:59 23:27 WBC RBC Hgb Hct MCV MCH MCHC RDW Plt Count MPV Immature Gran % (Auto) Neut % (Auto) Lymph % (Auto) [place] % (Auto) Eos % (Auto) Baso % (Auto) Lymph # (Auto) [place] # (Auto) Eos # (Auto) Baso # (Auto) Abs Immat Gran (auto) Absolute Neuts (auto) Absolute Nucleated RBC Total Counted Neutrophils % (Manual) Band Neutrophils % Lymphocytes % (Manual) Monocytes % (Manual) Nucleated RBC % Abs Neuts (Manual) Abs Lymphs (Manual) Abs Monocytes (Manual) Platelet Estimate Schistocytes Absolute Retic Percent Retic Immature Retic Fraction Retic Hgb Content Sodium Potassium Chloride Carbon Dioxide Anion Gap BUN Creatinine Estim Creat Clear Calc Estimated GFR Glucose POC Capillary Glucose 134 H 141 H Hemoglobin A1c Lactic Acid Calcium Magnesium Total Bilirubin Direct Bilirubin Indirect Bilirubin AST ALT Alkaline Phosphatase Lactate Dehydrogenase Total Creatine Kinase Total Protein Albumin Lipase Urine Color Urine Appearance Urine pH Ur Specific [place] Urine Protein Urine Glucose (UA) Urine Ketones Ur Blood (Man) Urine Nitrate Urine Bilirubin Urine Urobilinogen Add Ur Microanalysis Leukocyte Esterase Rfl Urine RBC Urine WBC Ur Squamous Epith Cells Amorphous Sediment Urine Bacteria Urine Casts Hepatitis A IgM Ab Hep Bs Antigen Hep B Core IgM Ab Hepatitis C Ab Screen Influenza A (RT-PCR) Influenza B (RT-PCR) RSV (RT-PCR) SARS-CoV-2 RNA (RT-PCR) LORY, IgG Interpret Neg LORY, Poly Interpret TNP LORY, Complement Interp Negative 07/28/24 05:18 WBC 9.7 RBC 4.00 L Hgb 13.9 L D Hct 38.5 L MCV 96.3 MCH 34.8 H MCHC 36.1 H RDW 14.0 Plt Count 157 MPV 10.3 Immature Gran % (Auto) 0.7 H Neut % (Auto) 87.1 H Lymph % (Auto) 5.6 L [place] % (Auto) 6.5 Eos % (Auto) 0.0 Baso % (Auto) 0.1 L Lymph # (Auto) 0.54 L [place] # (Auto) 0.6 Eos # (Auto) 0.0 Baso # (Auto) 0.0 Abs Immat Gran (auto) 0.07 H Absolute Neuts (auto) 8.4 H Absolute Nucleated RBC 0.000 Total Counted Neutrophils % (Manual) Band Neutrophils % Lymphocytes % (Manual) Monocytes % (Manual) Nucleated RBC % 0.0 Abs Neuts (Manual) Abs Lymphs (Manual) Abs Monocytes (Manual) Platelet Estimate Schistocytes Absolute Retic Percent Retic Immature Retic Fraction Retic Hgb Content Sodium 142 Potassium 3.9 Chloride 112 H Carbon Dioxide 22 Anion Gap 8 BUN 46 H Creatinine 1.84 H Estim Creat Clear Calc 27 Estimated GFR 35 L Glucose 120 H POC Capillary Glucose Hemoglobin A1c Lactic Acid Calcium 7.9 L Magnesium 2.3 Total Bilirubin 2.6 H Direct Bilirubin 0.0 Indirect Bilirubin AST 76 H ALT 69 H Alkaline Phosphatase 55 Lactate Dehydrogenase Total Creatine Kinase Total Protein 6.0 L Albumin 3.0 L Lipase Urine Color Urine Appearance Urine pH Ur Specific [place] Urine Protein Urine Glucose (UA) Urine Ketones Ur Blood (Man) Urine Nitrate Urine Bilirubin Urine Urobilinogen Add Ur Microanalysis Leukocyte Esterase Rfl Urine RBC Urine WBC Ur Squamous Epith Cells Amorphous Sediment Urine Bacteria Urine Casts Hepatitis A IgM Ab Hep Bs Antigen Hep B Core IgM Ab Hepatitis C Ab Screen Influenza A (RT-PCR) Influenza B (RT-PCR) RSV (RT-PCR) SARS-CoV-2 RNA (RT-PCR) LORY, IgG Interpret LORY, Poly Interpret LORY, Complement Interp Post-procedural complaints: none Patient Feedback: Patient satisfied with anesthetic care.
--- NOTE | 2024-07-28 08:11 | PM.IMPN ---
Progress Note: A&P Assessment and Plan (1) Sepsis: Code(s): A41.9 - Sepsis, unspecified organism Status: Acute (2) Urinary tract infection: Code(s): N39.0 - Urinary tract infection, site not specified Status: Acute (3) Left ureteral stone: Code(s): N20.1 - Calculus of ureter Status: Acute (4) Hydroureteronephrosis: Code(s): N13.30 - Unspecified hydronephrosis Status: Acute (5) Acute kidney injury: Code(s): N17.9 - Acute kidney failure, unspecified Status: Acute (6) Transaminitis: Code(s): R74.01 - Elevation of levels of liver transaminase levels Status: Acute Plan The patient presented to the emergency department with complaints of abdominal pain, fever, and weakness as detailed in HPI. He meets sepsis criteria with fever, tachycardia, leukocytosis, acute kidney injury, and hyperbilirubinemia with a SOFA score of at least 4. Source of infection is a urinary tract infection related with obstructing ureterolithiasis. patrica- BUN and creatinine of 49 and 2.82 in part due to hydroureteronephrosis from stones and also likely some component related to sepsis. CT scan also shows a distended bladder with enlarged prostate. Records requested from his primary care provider for comparison. He is being judiciously hydrated with close monitoring of volume status, renal function, and electrolytes. Renal ultrasound completed: Normal kidney sizes. No hydronephrosis. All medications will be renally dosed and nephrotoxic agents will be avoided. AST and ALT are a bit elevated however total bilirubin is 5.8. Continue to monitor for now and check hepatitis panel, total CK, and fractionate bilirubin. daily labs. Time Spent With Patient Time with patient: 25 - 35 minutes Subjective Date/time seen: 07/28/24 08:11 Interval history: 88-year-old male with PMH/o dementia, stroke, hypertension, and benign prostatic hyperplasia who admitted from home for evaluation of abdominal pain, weakness, and fever. His abd pain lasted for about couple of days, he was nauseated and have problems urinating. The morning when family called EMS, pt was drowsy and lethargic. Reported fever 102. In the ED: He was tachycardic and tachypneic on arrival with stable blood pressures. Labs are significant for WBC count of 17.7, chloride 111, carbon dioxide 16, anion gap 17, BUN 49, creatinine 2.82, glucose 171, lactic acid 2.0, total bilirubin 5.8, AST 90, ALT 61, alkaline phosphatase 78. Urinalysis was positive for 2+ protein, trace ketones, 2+ blood, 3+ leukocyte esterase, 11 to 20 RBC, greater than 100 WBC, and 4+ bacteria. He tested negative for influenza, RSV, and COVID. Chest x-ray showed no focal infiltrate or effusion. CT of the abdomen and pelvis showed bilateral hydroureteronephrosis secondary to calculi within the left-sided ureter as well as dependent within the bladder (possibly recently passed). He received ceftriaxone 1 gm and was taken to the OR. In PACU he was shivering and received Demerol with improvement. He had a brief episode of tachycardia but that has since resolved. He has no current complaints. urology was consulted and he had Cystoscopy, bilateral retrograde pyelograms, bilateral ureteral stent placement 6 [place] contour, complex Gregory catheter [address] Constantino on 07/27. When pt is seen and exmained, his urine was yellow- no blood noted. He was pleasant, alert to self Review of Systems Review of Systems: 12 systems were reviewed and are negative except for as per HPI. Exam Narrative: General: Mildly ill-appearing elderly gentleman sitting up in bed. Weight: 96.4 kg. BMI: 28.8. HEENT: Normocephalic, atraumatic. Sclera anicteric. Arcus senilis. Tacky mucous membranes. Neck: Supple. Respiratory: Lungs are clear to auscultation bilaterally. Cardiovascular: Regular rate and rhythm with S1-S2. Gastrointestinal: Abdomen is soft, nontender, and nondistended with positive bowel sounds. No guarding or rebound tenderness. Genitourinary: cbi Skin: Warm and dry. Normal capillary refill. Extremities are warm and perfused. Extremities: No cyanosis, clubbing, or edema. Radial and pedal pulses intact. Neurological: Alert to me date of , and place. Cranial nerves 2-12 are grossly intact. Speech is clear. No facial asymmetry. Generalized weakness without gross focal findings. Psychiatric: Pleasant cooperative with appropriate mood. He is a bit confused. Const: General: comfortable Objective Data Vital Signs Vital Signs: Vital Signs - 24 hr 07/27/24 12:49 07/27/24 13:07 07/27/24 13:08 Temperature 99.3 F Pulse Rate 119 H 118 H Respiratory Rate 32 H Blood Pressure 145/91 H Pulse Oximetry 92 92 Oxygen Delivery Nasal Cannula Nasal Cannula Oxygen Flow Rate 2 2 07/27/24 13:21 07/27/24 13:31 07/27/24 13:46 Temperature Pulse Rate 117 H 115 H 115 H Respiratory Rate 37 H 32 H 25 H Blood Pressure 137/90 118/85 119/86 Pulse Oximetry 94 94 93 Oxygen Delivery Oxygen Flow Rate 07/27/24 14:30 07/27/24 15:11 07/27/24 15:35 Temperature Pulse Rate 107 H 108 H 105 H Respiratory Rate 27 H 18 36 H Blood Pressure 131/92 H 118/78 Pulse Oximetry 95 95 97 Oxygen Delivery Oxygen Flow Rate 07/27/24 16:01 07/27/24 16:55 07/27/24 17:41 Temperature 101.8 F H 99.8 F H Pulse Rate 106 H 105 H 99 Respiratory Rate 33 H 18 17 Blood Pressure 134/77 153/94 H 110/77 Pulse Oximetry 97 97 96 Oxygen Delivery Nasal Cannula Simple Face Mask Oxygen Flow Rate 2 10 07/27/24 17:50 07/27/24 18:00 07/27/24 18:15 Temperature Pulse Rate 95 98 96 Respiratory Rate 16 20 20 Blood Pressure 114/74 124/75 122/88 Pulse Oximetry 98 97 94 Oxygen Delivery Simple Face Mask Room Air Nasal Cannula Oxygen Flow Rate 10 2 07/27/24 18:30 07/27/24 18:45 07/27/24 18:49 Temperature Pulse Rate 132 H 102 H 130 H Respiratory Rate 30 H 29 H Blood Pressure 153/110 H 166/117 H Pulse Oximetry 90 100 Oxygen Delivery Nasal Cannula Nasal Cannula Oxygen Flow Rate 4 4 07/27/24 18:49 07/27/24 19:00 07/27/24 19:15 Temperature 101 F H Pulse Rate 107 H 99 97 Respiratory Rate 24 H 26 H Blood Pressure 137/85 111/71 Pulse Oximetry 99 93 Oxygen Delivery Nasal Cannula Nasal Cannula Oxygen Flow Rate 4 4 07/27/24 19:30 07/27/24 19:45 07/27/24 20:00 Temperature 99.5 F 99.0 F Pulse Rate 98 99 99 Respiratory Rate 28 H 30 H 20 Blood Pressure 108/80 107/67 127/82 Pulse Oximetry 94 94 94 Oxygen Delivery Nasal Cannula Nasal Cannula Nasal Cannula Oxygen Flow Rate 4 4 4 07/27/24 21:16 07/27/24 21:18 07/27/24 22:16 Temperature 97.9 F Pulse Rate 98 98 Respiratory Rate 24 H Blood Pressure 140/77 Pulse Oximetry 96 96 Oxygen Delivery Nasal Cannula Oxygen Flow Rate 4 07/28/24 00:00 07/28/24 00:21 07/28/24 01:42 Temperature 101.9 F H 100.0 F H Pulse Rate 101 H 100 Respiratory Rate 24 H Blood Pressure 113/73 Pulse Oximetry 95 Oxygen Delivery Oxygen Flow Rate 07/28/24 04:00 07/28/24 06:00 07/28/24 08:02 Temperature 98.5 F Pulse Rate 91 81 Respiratory Rate 18 Blood Pressure 117/55 L Pulse Oximetry 94 96 Oxygen Delivery Nasal Cannula Oxygen Flow Rate 4 Intake/Output Intake/Output: Intake & Output 07/25/24 07/26/24 07/27/24 07/28/24 23:59 23:59 23:59 23:59 Intake Total 1113.3 50 Output Total 8300 1450 Balance -7186.7 -1400 Meds/Results Medications: Active Medications Generic Name Dose Route Start Last Admin Trade Name Freq PRN Reason Stop Dose Admin Acetaminophen 650 mg 07/28/24 00:20 07/28/24 00:42 Acetaminophen 325 Mg Tablet PO 650 mg Q6H PRN Administration Mild Pain (1-3) or Fever Hydrocodone Bitart/Acetaminophen 1 tab 07/27/24 20:31 Hydrocodone/Acetaminophen (*Crx) 5-325 Mg Tablet PO Q4H PRN Pain Rated 1-6 Cephalexin HCl 500 mg 07/28/24 12:00 Cephalexin 500 Mg Capsule PO Q6HR AMBIKA Docusate Sodium 100 mg 07/28/24 09:00 Docusate Sodium 100 Mg Capsule PO BID AMBIKA Finasteride 5 mg 07/28/24 09:00 Finasteride 5 Mg Tablet PO DAILY AMBIKA Hyoscyamine 0.125 mg 07/27/24 20:31 Hyoscyamine Sulfate 0.125 Mg Tablet SUBLINGUAL Q6H PRN Bladder Spasm Morphine Sulfate 2 mg 07/27/24 20:31 Morphine Sulfate (*Crx) 2 Mg/Ml Inj IV PUSH Q2H PRN Pain Rated 7-10 Naloxone HCl 0.1 mg 07/27/24 20:31 Naloxone Hcl 0.4 Mg/Ml Vial IV PUSH Q2M PRN Opiate Reversal Ondansetron HCl 4 mg 07/27/24 20:31 Ondansetron Inj 4 Mg/2 Ml Vial IV PUSH Q12H PRN Nausea And Vomiting Tamsulosin HCl 0.4 mg 07/27/24 23:45 07/28/24 00:42 Tamsulosin Hcl 0.4 Mg Capsule PO 0.4 mg HS AMBIKA Administration Radiology Results: ITS Impressions Chest X-Ray 07/27/24 13:29 IMPRESSION: No focal infiltrate or effusion. Abdomen/Pelvis CT 07/27/24 14:23 IMPRESSION: Bilateral hydroureteronephrosis secondary to calculi within the left-sided ureter as well as dependent within the bladder (possibly recently passed). Labs Labs: Laboratory Results - last 24 hr 07/27/24 07/27/24 07/27/24 13:04 13:19 15:16 WBC 17.7 H RBC 4.94 Hgb 17.0 Hct 46.6 MCV 94.3 MCH 34.4 H MCHC 36.5 H RDW 14.0 Plt Count 246 MPV 10.3 Immature Gran % (Auto) Not Reportable Neut % (Auto) Not Reportable Lymph % (Auto) Not Reportable [place] % (Auto) Not Reportable Eos % (Auto) Not Reportable Baso % (Auto) Not Reportable Lymph # (Auto) Not Reportable [place] # (Auto) Not Reportable Eos # (Auto) Not Reportable Baso # (Auto) Not Reportable Abs Immat Gran (auto) Not Reportable Absolute Neuts (auto) Not Reportable Absolute Nucleated RBC Not Reportable Total Counted 100 Neutrophils % (Manual) 86 H Band Neutrophils % 5 Lymphocytes % (Manual) 2.0 L Monocytes % (Manual) 7 Nucleated RBC % Not Reportable Abs Neuts (Manual) 16.10 H Abs Lymphs (Manual) 0.35 L Abs Monocytes (Manual) 1.23 H Platelet Estimate Adequate Schistocytes None seen Absolute Retic 0.14 H Percent Retic 2.99 Immature Retic Fraction 19.3 H Retic Hgb Content 35.3 Sodium 144 Potassium 4.5 Chloride 111 H Carbon Dioxide 16 L Anion Gap 17 H BUN 49 H Creatinine 2.82 H Estim Creat Clear Calc 18 Estimated GFR 21 L Glucose 171 H POC Capillary Glucose Hemoglobin A1c 4.4 Lactic Acid 2.0 Calcium 9.5 Magnesium Total Bilirubin 5.8 H Direct Bilirubin 0.6 H Indirect Bilirubin 4.4 H AST 90 H ALT 61 H Alkaline Phosphatase 78 Lactate Dehydrogenase 264 H Total Creatine Kinase 708 H Total Protein 8.0 Albumin 4.2 Lipase 32 Urine Color Yellow Urine Appearance Turbid H Urine pH 8.5 Ur Specific [place] 1.012 Urine Protein 2+ H Urine Glucose (UA) Negative Urine Ketones Trace H Ur Blood (Man) 2+ H Urine Nitrate Negative Urine Bilirubin Negative Urine Urobilinogen 1.0 Add Ur Microanalysis Reviewed Leukocyte Esterase Rfl 3+ H Urine RBC 11-20 H Urine WBC >100 H Ur Squamous Epith Cells None seen Amorphous Sediment Few H Urine Bacteria 4+ H Urine Casts 11-20 Hepatitis A IgM Ab Negative Hep Bs Antigen Negative Hep B Core IgM Ab Negative Hepatitis C Ab Screen Negative Influenza A (RT-PCR) Negative Influenza B (RT-PCR) Negative RSV (RT-PCR) Negative SARS-CoV-2 RNA (RT-PCR) Negative LORY, IgG Interpret LORY, Poly Interpret LORY, Complement Interp 07/27/24 07/27/24 07/27/24 17:56 21:59 23:27 WBC RBC Hgb Hct MCV MCH MCHC RDW Plt Count MPV Immature Gran % (Auto) Neut % (Auto) Lymph % (Auto) [place] % (Auto) Eos % (Auto) Baso % (Auto) Lymph # (Auto) [place] # (Auto) Eos # (Auto) Baso # (Auto) Abs Immat Gran (auto) Absolute Neuts (auto) Absolute Nucleated RBC Total Counted Neutrophils % (Manual) Band Neutrophils % Lymphocytes % (Manual) Monocytes % (Manual) Nucleated RBC % Abs Neuts (Manual) Abs Lymphs (Manual) Abs Monocytes (Manual) Platelet Estimate Schistocytes Absolute Retic Percent Retic Immature Retic Fraction Retic Hgb Content Sodium Potassium Chloride Carbon Dioxide Anion Gap BUN Creatinine Estim Creat Clear Calc Estimated GFR Glucose POC Capillary Glucose 134 H 141 H Hemoglobin A1c Lactic Acid Calcium Magnesium Total Bilirubin Direct Bilirubin Indirect Bilirubin AST ALT Alkaline Phosphatase Lactate Dehydrogenase Total Creatine Kinase Total Protein Albumin Lipase Urine Color Urine Appearance Urine pH Ur Specific [place] Urine Protein Urine Glucose (UA) Urine Ketones Ur Blood (Man) Urine Nitrate Urine Bilirubin Urine Urobilinogen Add Ur Microanalysis Leukocyte Esterase Rfl Urine RBC Urine WBC Ur Squamous Epith Cells Amorphous Sediment Urine Bacteria Urine Casts Hepatitis A IgM Ab Hep Bs Antigen Hep B Core IgM Ab Hepatitis C Ab Screen Influenza A (RT-PCR) Influenza B (RT-PCR) RSV (RT-PCR) SARS-CoV-2 RNA (RT-PCR) LORY, IgG Interpret Neg LORY, Poly Interpret TNP LORY, Complement Interp Negative 07/28/24 05:18 WBC 9.7 RBC 4.00 L Hgb 13.9 L D Hct 38.5 L MCV 96.3 MCH 34.8 H MCHC 36.1 H RDW 14.0 Plt Count 157 MPV 10.3 Immature Gran % (Auto) 0.7 H Neut % (Auto) 87.1 H Lymph % (Auto) 5.6 L [place] % (Auto) 6.5 Eos % (Auto) 0.0 Baso % (Auto) 0.1 L Lymph # (Auto) 0.54 L [place] # (Auto) 0.6 Eos # (Auto) 0.0 Baso # (Auto) 0.0 Abs Immat Gran (auto) 0.07 H Absolute Neuts (auto) 8.4 H Absolute Nucleated RBC 0.000 Total Counted Neutrophils % (Manual) Band Neutrophils % Lymphocytes % (Manual) Monocytes % (Manual) Nucleated RBC % 0.0 Abs Neuts (Manual) Abs Lymphs (Manual) Abs Monocytes (Manual) Platelet Estimate Schistocytes Absolute Retic Percent Retic Immature Retic Fraction Retic Hgb Content Sodium 142 Potassium 3.9 Chloride 112 H Carbon Dioxide 22 Anion Gap 8 BUN 46 H Creatinine 1.84 H Estim Creat Clear Calc 27 Estimated GFR 35 L Glucose 120 H POC Capillary Glucose Hemoglobin A1c Lactic Acid Calcium 7.9 L Magnesium 2.3 Total Bilirubin 2.6 H Direct Bilirubin 0.0 Indirect Bilirubin AST 76 H ALT 69 H Alkaline Phosphatase 55 Lactate Dehydrogenase Total Creatine Kinase Total Protein 6.0 L Albumin 3.0 L Lipase Urine Color Urine Appearance Urine pH Ur Specific [place] Urine Protein Urine Glucose (UA) Urine Ketones Ur Blood (Man) Urine Nitrate Urine Bilirubin Urine Urobilinogen Add Ur Microanalysis Leukocyte Esterase Rfl Urine RBC Urine WBC Ur Squamous Epith Cells Amorphous Sediment Urine Bacteria Urine Casts Hepatitis A IgM Ab Hep Bs Antigen Hep B Core IgM Ab Hepatitis C Ab Screen Influenza A (RT-PCR) Influenza B (RT-PCR) RSV (RT-PCR) SARS-CoV-2 RNA (RT-PCR) LORY, IgG Interpret LORY, Poly Interpret LORY, Complement Interp Quality VTE Prophylaxis VTE prophylaxis: mechanical ordered
[2024-07-28 08:50] LABS: Glucose Point of Care 105 mg/dl (65-105)
--- NOTE | 2024-07-28 09:10 | PCDIET ---
Patient off of unit to [facility]
--- NOTE | 2024-07-28 09:50 | P.PNUR_ITS ---
Progress Note: A&P Assessment and Plan (1) Sepsis: Code(s): A41.9 - Sepsis, unspecified organism Status: Acute Assessment and Plan: - Likely 2/2 UTI - Clinically improving (2) Acute kidney injury: Code(s): N17.9 - Acute kidney failure, unspecified Status: Acute Assessment and Plan: - Cr downtrending (3) Acute UTI: Code(s): N39.0 - Urinary tract infection, site not specified Status: Acute Assessment and Plan: - Present on admission - 07/27/24 UA suspicious for UTI - Urine culture pending (4) Left ureteral stone: Code(s): N20.1 - Calculus of ureter Status: Acute Assessment and Plan: - History stones in the past; bilateral renal stones noted on 07/27/24 CT - Per op note, obstructing left ureteral stone not clearly visualized on URS - Left ureteral stent in place (5) Hydroureteronephrosis: Code(s): N13.30 - Unspecified hydronephrosis Status: Acute Assessment and Plan: - s/p bilateral ureteral stent placement 07/27/24 - ? 2/2 obstructing stones with chronic bladder outlet obstructing (6) Benign prostatic hyperplasia: Code(s): N40.0 - Benign prostatic hyperplasia without lower urinary tract symptoms Status: Acute Assessment and Plan: - Cystoscopy: Enlarged vascular obstructing prostate with a large median lobe - Developed hematuria following cystoscopy requiring indwelling Gregory placement/CBI - Continue home finasteride/tamsulosin - Hx chronically elevated PSA >10yrs with two negative prostate biopsies in the past Plan - Agree with renal ultrasound to further assess degree of bilateral hydroureteronephrosis - Urine clear on slow CBI this morning, clamped at 1030. Maintain Gregory for now. - Agree with culture-directed abx for UTI. Blood and urine cultures pending. - Plan for outpatient stone treatment, stent management after his infection has cleared. - Follows with Dr. Hammond for urology management. Subjective Subjective Date/Time Seen: 07/28/24 09:50 Interval history: Plesant 88yoM admitted 07/27/24 with sepsis, TAVIA, UTI, ureteral stone Febrile overnight, T-max 101.9 POD1 cystoscopy, ureteroscopy, bilateral ureteral stent placement with Dr. Constantino for obstructing 4mm left ureteral stone, bladder stones, bilateral hydroureteronephrosis. Leukocytosis resolved, WBC 9.7 from 17.7 Renal function improving, Cr 1.84 from 2.82 Exam Const: General: comfortable and no acute distress Resp: Effort & Inspection: normal respiratory effort Other: Cough Urinary Catheter: Urinary Catheter: patent and draining, urine clear and other (CBI slow gtt) Neuro: Speech: normal speech Psych: Mental Status: mental status grossly normal Objective Data Vital Signs Vital Signs: Vital Signs - 24 hr 07/27/24 12:49 07/27/24 13:07 07/27/24 13:08 Temperature 99.3 F Pulse Rate 119 H 118 H Respiratory Rate 32 H Blood Pressure 145/91 H Pulse Oximetry 92 92 Oxygen Delivery Nasal Cannula Nasal Cannula Oxygen Flow Rate 2 2 07/27/24 13:21 07/27/24 13:31 07/27/24 13:46 Temperature Pulse Rate 117 H 115 H 115 H Respiratory Rate 37 H 32 H 25 H Blood Pressure 137/90 118/85 119/86 Pulse Oximetry 94 94 93 Oxygen Delivery Oxygen Flow Rate 07/27/24 14:30 07/27/24 15:11 07/27/24 15:35 Temperature Pulse Rate 107 H 108 H 105 H Respiratory Rate 27 H 18 36 H Blood Pressure 131/92 H 118/78 Pulse Oximetry 95 95 97 Oxygen Delivery Oxygen Flow Rate 07/27/24 16:01 07/27/24 16:55 07/27/24 17:41 Temperature 101.8 F H 99.8 F H Pulse Rate 106 H 105 H 99 Respiratory Rate 33 H 18 17 Blood Pressure 134/77 153/94 H 110/77 Pulse Oximetry 97 97 96 Oxygen Delivery Nasal Cannula Simple Face Mask Oxygen Flow Rate 2 10 07/27/24 17:50 07/27/24 18:00 07/27/24 18:15 Temperature Pulse Rate 95 98 96 Respiratory Rate 16 20 20 Blood Pressure 114/74 124/75 122/88 Pulse Oximetry 98 97 94 Oxygen Delivery Simple Face Mask Room Air Nasal Cannula Oxygen Flow Rate 10 2 07/27/24 18:30 07/27/24 18:45 07/27/24 18:49 Temperature Pulse Rate 132 H 102 H 130 H Respiratory Rate 30 H 29 H Blood Pressure 153/110 H 166/117 H Pulse Oximetry 90 100 Oxygen Delivery Nasal Cannula Nasal Cannula Oxygen Flow Rate 4 4 07/27/24 18:49 07/27/24 19:00 07/27/24 19:15 Temperature 101 F H Pulse Rate 107 H 99 97 Respiratory Rate 24 H 26 H Blood Pressure 137/85 111/71 Pulse Oximetry 99 93 Oxygen Delivery Nasal Cannula Nasal Cannula Oxygen Flow Rate 4 4 07/27/24 19:30 07/27/24 19:45 07/27/24 20:00 Temperature 99.5 F 99.0 F Pulse Rate 98 99 99 Respiratory Rate 28 H 30 H 20 Blood Pressure 108/80 107/67 127/82 Pulse Oximetry 94 94 94 Oxygen Delivery Nasal Cannula Nasal Cannula Nasal Cannula Oxygen Flow Rate 4 4 4 07/27/24 21:16 07/27/24 21:18 07/27/24 22:16 Temperature 97.9 F Pulse Rate 98 98 Respiratory Rate 24 H Blood Pressure 140/77 Pulse Oximetry 96 96 Oxygen Delivery Nasal Cannula Oxygen Flow Rate 4 07/28/24 00:00 07/28/24 00:21 07/28/24 01:42 Temperature 101.9 F H 100.0 F H Pulse Rate 101 H 100 Respiratory Rate 24 H Blood Pressure 113/73 Pulse Oximetry 95 Oxygen Delivery Oxygen Flow Rate 07/28/24 04:00 07/28/24 06:00 07/28/24 08:00 Temperature 98.5 F Pulse Rate 91 81 84 Respiratory Rate 18 16 Blood Pressure 117/55 L 114/68 Pulse Oximetry 94 99 Oxygen Delivery Oxygen Flow Rate 07/28/24 08:02 Temperature Pulse Rate Respiratory Rate Blood Pressure Pulse Oximetry 96 Oxygen Delivery Nasal Cannula Oxygen Flow Rate 4 Intake/Output Intake/Output: Intake & Output 07/25/24 07/26/24 07/27/24 07/28/24 23:59 23:59 23:59 23:59 Intake Total 1113.3 50 Output Total 8300 1450 Balance -7186.7 -1400 Meds/Results Medications: Active Medications Generic Name Dose Route Start Last Admin Trade Name Freq PRN Reason Stop Dose Admin Acetaminophen 650 mg 07/28/24 00:20 07/28/24 00:42 Acetaminophen 325 Mg Tablet PO 650 mg Q6H PRN Administration Mild Pain (1-3) or Fever Hydrocodone Bitart/Acetaminophen 1 tab 07/27/24 20:31 Hydrocodone/Acetaminophen (*Crx) 5-325 Mg Tablet PO Q4H PRN Pain Rated 1-6 Cephalexin HCl 500 mg 07/28/24 12:00 Cephalexin 500 Mg Capsule PO Q6HR [facility] Docusate Sodium 100 mg 07/28/24 09:00 Docusate Sodium 100 Mg Capsule PO BID [facility] Finasteride 5 mg 07/28/24 09:00 Finasteride 5 Mg Tablet PO DAILY [facility] Hyoscyamine 0.125 mg 07/27/24 20:31 Hyoscyamine Sulfate 0.125 Mg Tablet SUBLINGUAL Q6H PRN Bladder Spasm Morphine Sulfate 2 mg 07/27/24 20:31 Morphine Sulfate (*Crx) 2 Mg/Ml Inj IV PUSH Q2H PRN Pain Rated 7-10 Naloxone HCl 0.1 mg 07/27/24 20:31 Naloxone Hcl 0.4 Mg/Ml Vial IV PUSH Q2M PRN Opiate Reversal Ondansetron HCl 4 mg 07/27/24 20:31 Ondansetron Inj 4 Mg/2 Ml Vial IV PUSH Q12H PRN Nausea And Vomiting Tamsulosin HCl 0.4 mg 07/27/24 23:45 07/28/24 00:42 Tamsulosin Hcl 0.4 Mg Capsule PO 0.4 mg HS AMBIKA Administration Radiology Results: ITS Impressions Chest X-Ray 07/27/24 13:29 IMPRESSION: No focal infiltrate or effusion. Abdomen/Pelvis CT 07/27/24 14:23 IMPRESSION: Bilateral hydroureteronephrosis secondary to calculi within the left-sided ureter as well as dependent within the bladder (possibly recently passed). Labs Labs: Laboratory Results - last 24 hr 07/27/24 07/27/24 07/27/24 13:04 13:19 15:16 WBC 17.7 H RBC 4.94 Hgb 17.0 Hct 46.6 MCV 94.3 MCH 34.4 H MCHC 36.5 H RDW 14.0 Plt Count 246 MPV 10.3 Immature Gran % (Auto) Not Reportable Neut % (Auto) Not Reportable Lymph % (Auto) Not Reportable Dillon % (Auto) Not Reportable Eos % (Auto) Not Reportable Baso % (Auto) Not Reportable Lymph # (Auto) Not Reportable Dillon # (Auto) Not Reportable Eos # (Auto) Not Reportable Baso # (Auto) Not Reportable Abs Immat Gran (auto) Not Reportable Absolute Neuts (auto) Not Reportable Absolute Nucleated RBC Not Reportable Total Counted 100 Neutrophils % (Manual) 86 H Band Neutrophils % 5 Lymphocytes % (Manual) 2.0 L Monocytes % (Manual) 7 Nucleated RBC % Not Reportable Abs Neuts (Manual) 16.10 H Abs Lymphs (Manual) 0.35 L Abs Monocytes (Manual) 1.23 H Platelet Estimate Adequate Schistocytes None seen Absolute Retic 0.14 H Percent Retic 2.99 Immature Retic Fraction 19.3 H Retic Hgb Content 35.3 Sodium 144 Potassium 4.5 Chloride 111 H Carbon Dioxide 16 L Anion Gap 17 H BUN 49 H Creatinine 2.82 H Estim Creat Clear Calc 18 Estimated GFR 21 L Glucose 171 H POC Capillary Glucose Hemoglobin A1c 4.4 Lactic Acid 2.0 Calcium 9.5 Magnesium Total Bilirubin 5.8 H Direct Bilirubin 0.6 H Indirect Bilirubin 4.4 H AST 90 H ALT 61 H Alkaline Phosphatase 78 Lactate Dehydrogenase 264 H Total Creatine Kinase 708 H Total Protein 8.0 Albumin 4.2 Lipase 32 Urine Color Yellow Urine Appearance Turbid H Urine pH 8.5 Ur Specific [place] 1.012 Urine Protein 2+ H Urine Glucose (UA) Negative Urine Ketones Trace H Ur Blood (Man) 2+ H Urine Nitrate Negative Urine Bilirubin Negative Urine Urobilinogen 1.0 Add Ur Microanalysis Reviewed Leukocyte Esterase Rfl 3+ H Urine RBC 11-20 H Urine WBC >100 H Ur Squamous Epith Cells None seen Amorphous Sediment Few H Urine Bacteria 4+ H Urine Casts 11-20 Hepatitis A IgM Ab Negative Hep Bs Antigen Negative Hep B Core IgM Ab Negative Hepatitis C Ab Screen Negative Influenza A (RT-PCR) Negative Influenza B (RT-PCR) Negative RSV (RT-PCR) Negative SARS-CoV-2 RNA (RT-PCR) Negative LORY, IgG Interpret LORY, Poly Interpret LORY, Complement Interp 07/27/24 07/27/24 07/27/24 17:56 21:59 23:27 WBC RBC Hgb Hct MCV MCH MCHC RDW Plt Count MPV Immature Gran % (Auto) Neut % (Auto) Lymph % (Auto) Dillon % (Auto) Eos % (Auto) Baso % (Auto) Lymph # (Auto) Dillon # (Auto) Eos # (Auto) Baso # (Auto) Abs Immat Gran (auto) Absolute Neuts (auto) Absolute Nucleated RBC Total Counted Neutrophils % (Manual) Band Neutrophils % Lymphocytes % (Manual) Monocytes % (Manual) Nucleated RBC % Abs Neuts (Manual) Abs Lymphs (Manual) Abs Monocytes (Manual) Platelet Estimate Schistocytes Absolute Retic Percent Retic Immature Retic Fraction Retic Hgb Content Sodium Potassium Chloride Carbon Dioxide Anion Gap BUN Creatinine Estim Creat Clear Calc Estimated GFR Glucose POC Capillary Glucose 134 H 141 H Hemoglobin A1c Lactic Acid Calcium Magnesium Total Bilirubin Direct Bilirubin Indirect Bilirubin AST ALT Alkaline Phosphatase Lactate Dehydrogenase Total Creatine Kinase Total Protein Albumin Lipase Urine Color Urine Appearance Urine pH Ur Specific [place] Urine Protein Urine Glucose (UA) Urine Ketones Ur Blood (Man) Urine Nitrate Urine Bilirubin Urine Urobilinogen Add Ur Microanalysis Leukocyte Esterase Rfl Urine RBC Urine WBC Ur Squamous Epith Cells Amorphous Sediment Urine Bacteria Urine Casts Hepatitis A IgM Ab Hep Bs Antigen Hep B Core IgM Ab Hepatitis C Ab Screen Influenza A (RT-PCR) Influenza B (RT-PCR) RSV (RT-PCR) SARS-CoV-2 RNA (RT-PCR) LORY, IgG Interpret Neg LORY, Poly Interpret TNP LOYR, Complement Interp Negative 07/28/24 07/28/24 05:18 08:48 WBC 9.7 RBC 4.00 L Hgb 13.9 L D Hct 38.5 L MCV 96.3 MCH 34.8 H MCHC 36.1 H RDW 14.0 Plt Count 157 MPV 10.3 Immature Gran % (Auto) 0.7 H Neut % (Auto) 87.1 H Lymph % (Auto) 5.6 L Dillon % (Auto) 6.5 Eos % (Auto) 0.0 Baso % (Auto) 0.1 L Lymph # (Auto) 0.54 L Dillon # (Auto) 0.6 Eos # (Auto) 0.0 Baso # (Auto) 0.0 Abs Immat Gran (auto) 0.07 H Absolute Neuts (auto) 8.4 H Absolute Nucleated RBC 0.000 Total Counted Neutrophils % (Manual) Band Neutrophils % Lymphocytes % (Manual) Monocytes % (Manual) Nucleated RBC % 0.0 Abs Neuts (Manual) Abs Lymphs (Manual) Abs Monocytes (Manual) Platelet Estimate Schistocytes Absolute Retic Percent Retic Immature Retic Fraction Retic Hgb Content Sodium 142 Potassium 3.9 Chloride 112 H Carbon Dioxide 22 Anion Gap 8 BUN 46 H Creatinine 1.84 H Estim Creat Clear Calc 27 Estimated GFR 35 L Glucose 120 H POC Capillary Glucose 105 Hemoglobin A1c Lactic Acid Calcium 7.9 L Magnesium 2.3 Total Bilirubin 2.6 H Direct Bilirubin 0.0 Indirect Bilirubin AST 76 H ALT 69 H Alkaline Phosphatase 55 Lactate Dehydrogenase Total Creatine Kinase Total Protein 6.0 L Albumin 3.0 L Lipase Urine Color Urine Appearance Urine pH Ur Specific [place] Urine Protein Urine Glucose (UA) Urine Ketones Ur Blood (Man) Urine Nitrate Urine Bilirubin Urine Urobilinogen Add Ur Microanalysis Leukocyte Esterase Rfl Urine RBC Urine WBC Ur Squamous Epith Cells Amorphous Sediment Urine Bacteria Urine Casts Hepatitis A IgM Ab Hep Bs Antigen Hep B Core IgM Ab Hepatitis C Ab Screen Influenza A (RT-PCR) Influenza B (RT-PCR) RSV (RT-PCR) SARS-CoV-2 RNA (RT-PCR) LORY, IgG Interpret LORY, Poly Interpret LORY, Complement Interp
--- NOTE | 2024-07-28 10:13 | PC.NURSE ---
Patient returned to unit from US
[2024-07-28] MEDS: DOCUSATE SODIUM 100 MG CAPSULE PO ×2 (11:34→17:19)
[2024-07-28] MEDS: FINASTERIDE 5 MG TABLET PO (11:34)
[2024-07-28] MEDS: CEPHALEXIN 500 MG CAPSULE PO ×3 (11:34→23:00)
[2024-07-28 11:45] LABS: Glucose Point of Care 164 mg/dl (65-105)
--- NOTE | 2024-07-28 14:47 | PC.NURSE ---
RN spoke with grandson Sachin, via telephone and gave update on patient's status.
--- NOTE | 2024-07-28 16:55 | PC.NURSE ---
RN called hospitalist Juliana. No answer at this time.
--- NOTE | 2024-07-28 16:59 | ECG_ITS ---
Test Date: 2024-07-28 17:59:59 Measurements Intervals [place] Rate: 122 P: 0 LA: 0 QRS: -32 QRSD: 87 T: -20 QT: 316 QTc: 451 Interpretive Statements ATRIAL FIBRILLATION WITH RAPID VENTRICULAR RESPONSE LEFT AXIS DEVIATION LEFT VENTRICULAR HYPERTROPHY POSSIBLE ANTERIOR MYOCARDIAL INFARCTION T WAVE ABNORMALITY IN INFERIOR LEADS- CONSIDER ISCHEMIA ABNORMAL ECG Compared to ECG 07/27/2024 12:59:49 SINUS TACHYCARDIA NO LONGER PRESENT Electronically Signed On 07-28-2024 18:36:09 VISITOR INFORMATION ASSISTANT by Gautam Thompson D.O.
--- NOTE | 2024-07-28 17:05 | PC.NURSE ---
RN called Hospitalist Jacob and updated him on patient status and vitals. Patient appearing to be lethargic, but states he feels fine. RN took manual blood pressure (see vitals). Patient's telemetry reading AFIB at this time. RN called and obtained orders to put in stat EKG and lactic.
[2024-07-28 17:16] LABS: Glucose Point of Care 113 mg/dl (65-105)
--- NOTE | 2024-07-28 17:59 | ECG_ITS ---
Test Date: 2024-07-28 17:59:23 Measurements Intervals [place] Rate: 118 P: 0 SC: 0 QRS: -33 QRSD: 83 T: -18 QT: 315 QTc: 442 Interpretive Statements ATRIAL FIBRILLATION WITH RAPID VENTRICULAR RESPONSE LEFT AXIS DEVIATION LEFT VENTRICULAR HYPERTROPHY POSSIBLE ANTERIOR MYOCARDIAL INFARCTION [ T WAVE ABNORMALITY IN INFERIOR LEADS- CONSIDER ISCHEMIA BASELINE ARTIFACT- I, III, AVR, AVL, AVF, V1-V6 ABNORMAL ECG Compared to ECG 07/27/2024 12:59:49 NO SIGNIFICANT CHANGE Electronically Signed On 07-29-2024 13:41:29 TRIALS MANAGER by Gautam Thompson D.O.
--- NOTE | 2024-07-28 18:17 | PC.NURSE ---
RN obtained EKG (see report). RN called hospitalist Jacob and updated him on EKG results and patient's vitals (see vitals). Hospitalist Jacob ordered for patient to be transferred to IMU on cardizem drip and bolus (see MAR).
--- NOTE | 2024-07-28 18:37 | PC.NURSE ---
RN called ronaldo Sachin via telephone and updated him on patient status. RN informed Sachin that patient will be transferring to IMU.
[2024-07-28 19:18] LABS: Lactic Acid Reflex 1.2 mmol/L (0.7-2.0)
--- NOTE | 2024-07-28 20:26 | PC.NURSE ---
Call placed to ronaldo Stephenson to inform him of plan of care and that patient will not be transferring to IMU.
[2024-07-28] MEDS: LACTATED RINGERS 1,000 ML 999 ML IV CONT (20:28)
[2024-07-28] MEDS: HYOSCYAMINE SULFATE 0.125 MG TABLET SUBLINGUAL (20:28)
[2024-07-28 21:03] LABS: Glucose Point of Care 140 mg/dl (65-105)
[2024-07-28] MEDS: LACTATED RINGERS 1,000 ML 75 ML IV CONT (21:30)
[2024-07-28] MEDS: METOPROLOL TARTRATE 12.5 MG TABLET PO (23:00)
[2024-07-29] VITALS (11 sets, daily range): BP systolic 92–119; BP diastolic 64–81; PULSE 62–89; RESP 16–18; TEMP 36.4–36.8; O2SAT 93–96
--- NOTE | 2024-07-29 | ECHO_ITS ---
Patient Info Name: Bernardo Gallardo Age: 88 years : 1935 Gender: Male Ht: 72 in Wt: 207 lbs BSA: 2.20 m2 HR: 79 bpm BP: 107 / 70 mmHg Technical Quality: Poor Exam Date: 07/29/2024 11:10 AM Exam Location: Echo Lab Patient Status: Inpatient Admit Date: 07/27/2024 Staff Ordering Physician: Jane Guerrero PA-C Permanent Mold Supervisor: Kavya Broussard RDCS Attending Provider: Jane Guerrero PA-C Exam Type: CA echo dop color flow w con Study Info Complete two-dimensional, color flow and Doppler transthoracic echocardiogram is performed with contrast to opacify the left ventricle and to improve the deliniation of the left ventricle endocardial borders. Contrast/Agitated Saline Contrast/Ag. Saline: Definity Amount: 2.00 ml Existing IV Access: Yes Reason for Poor Study: poor echocardiographic windows Summary 1. Definity contrast administered improved wall motion interpretation. 2. Left ventricular chamber dimension is normal. 3. Left ventricular systolic function is normal, estimated at 55-60%. 4. There is moderate concentric increased left ventricular wall thickness. 5. The left ventricular diastolic function is normal. 6. E/e' 6 is not elevated. 7. Left atrial chamber dimension is moderately enlarged. 8. Right atrial chamber dimension is mildly enlarged. 9. There is moderate aortic valve sclerosis. 10. Cannot rule out aortic valve vegetation visualized. 11. There is trace aortic valve regurgitation. 12. There is trace tricuspid valve regurgitation. 13. No pulmonary hypertension, estimated pulmonary arterial systolic pressure is 36 mmHg. 14. There is trace pulmonic regurgitation. 15. Normal inferior vena cava with >50% collapse upon inspiration consistent with elevated right atrial pressure, 10 mmHg. Left Ventricle E/e' 6 is not elevated. Definity contrast administered improved wall motion interpretation. Left ventricular chamber dimension is normal. Left ventricular systolic function is normal, estimated at 55-60%. There is moderate concentric increased left ventricular wall thickness. The left ventricular diastolic function is normal. Right Ventricle Right ventricular systolic function is normal and with normal TAPSE 3.1 cm. Right ventricular chamber dimension is normal. Left Atria Left atrial chamber dimension is moderately enlarged. Right Atria Right atrial chamber dimension is mildly enlarged. Aortic Valve The aortic valve is trileaflet. There is moderate aortic valve sclerosis. There is no aortic valve stenosis. There is trace aortic valve regurgitation. Cannot rule out aortic valve vegetation visualized. Pulmonic Valve There is trace pulmonic regurgitation. No pulmonic valve vegetation visualized. Mitral Valve There is no mitral valve stenosis. There is no mitral valve regurgitation. No mitral valve vegetation visualized. Tricuspid Valve There is trace tricuspid valve regurgitation. No pulmonary hypertension, estimated pulmonary arterial systolic pressure is 36 mmHg. No tricuspid valve vegetation visualized. Pericardium/Pleural There is no pericardial effusion. Inferior Vena Cava Normal inferior vena cava with >50% collapse upon inspiration consistent with elevated right atrial pressure, 10 mmHg. Aorta The aortic root size at the sinus of Valsalva is normal. Left Ventricular Outflow Tract Name Value Normal LVOT 2D LVOT Diameter 2.29 cm LVOT Doppler LVOT Peak Gradient 3 mmHg LVOT Mean Gradient 2 mmHg LVOT VTI 22.74 cm LVOT VTI/AV VTI Ratio 0.72 LVOT Stroke Volume 93.46 ml LVOT CO 5.50 l/min LVOT CI 2.50 L/min/m2 Pulmonic Valve Name Value Normal RVOT Doppler RVOT Peak Gradient 2 mmHg PV Doppler PV Peak Gradient 2 mmHg Mitral Valve Name Value Normal MV Doppler MV Decel Jackson 395.76 cm/s2 MV PHT 0 s MV Area (PHT) 5.69 cm2 4.00-5.00 MV Diastolic Function MV E Peak Velocity 52.79 cm/s MV A Peak Velocity 43.95 cm/s MV E/A 1.20 MV Decel Time 0 s MV Annular TDI MV E/e' (Septal) 7.21 <=8.00 MV E/e' (Lateral) 5.88 <=8.00 MV E/e' (Average) 6.54 Tricuspid Valve Name Value Normal TV Regurgitation Doppler TR Peak Velocity 256.73 cm/s TR Peak Gradient 16 mmHg Estimated PAP/RSVP RA Pressure 10 mmHg <=5 PA Systolic Pressure 36 mmHg <36 RV Systolic Pressure 36 mmHg <36 Aorta Name Value Normal Ascending Aorta Ao Root Diameter (MM) 4.18 cm Ao Root Diam Index (MM) 1.90 cm/m2 Aortic Valve Name Value Normal AV Doppler AV Peak Velocity 135.85 cm/s AV Peak Gradient 7 mmHg AV Mean Gradient 5 mmHg AV VTI 31.51 cm AV Area (Cont Eq VTI) 2.97 cm2 >=3.00 AV Area (Cont Eq Gray) 2.78 cm2 AV Regurgitation 2D LVOT Area 4.11 cm2 AV Regurgitation Doppler AR Decel Time 2 s AR Decel Jackson 199.46 cm/s2 AR PHT 0 s Ventricles Name Value Normal LV Dimensions 2D/MM IVS Diastolic Thickness (2D) 1.65 cm 0.60-1.00 LVID Diastole (2D) 4.94 cm 4.20-5.80 LVIW Diastolic Thickness (2D) 1.87 cm 0.60-1.00 LVID Systole (2D) 2.52 cm 2.50-4.00 LVOT Diameter 2.29 cm LV Mass (2D Cubed) 402.76 g 88.00-224.00 LV Mass Index (2D Cubed) 0.02 g/cm2 0.00-0.01 Relative Wall Thickness (2D) 0.76 LV Fractional Shortening/Ejection Fraction 2D/MM LV Fractional Shortening (2D) 42 % 25-43 LV EF (2D Teicholz) 72 % 52-72 LV Diastolic Volume (4C MOD) 145.68 ml LV EF (4C MOD) 56 % LV Diastolic Volume (2C MOD) 107.83 ml LV EF (2C MOD) 52 % LV Diastolic Volume (BP MOD) 128.62 ml 62.00-150.00 LV Diastolic Volume Index (BP MOD) 0.06 l/m2 0.03-0.07 LV Systolic Volume (BP MOD) 58.03 ml 21.00-61.00 LV Systolic Volume Index (BP MOD) 0.03 l/m2 0.01-0.03 LV EF (BP MOD) 55 % 52-72 LV Diastolic Length (4C) 8.51 cm LV Systolic Length (4C) 7.20 cm LV Stroke Volume (4C MOD) 81.60 ml Atria Name Value Normal LA Dimensions LA Dimension (MM) 5.14 cm 3.00-4.10 LA Volume (4C A-L) 104.69 ml LA Volume (BP A-L) 75.32 ml RA Dimensions RA Area (4C) 19.56 cm2 <=18.00 Report Signatures
[2024-07-29] MEDS: HYOSCYAMINE SULFATE 0.125 MG TABLET SUBLINGUAL (03:09)
[2024-07-29] MEDS: CEPHALEXIN 500 MG CAPSULE PO ×3 (05:56→23:03)
[2024-07-29 06:36] LABS: Hematocrit 39.4 % (42.0-52.0); Hemoglobin 14.1 g/dL (14.0-18.0); Mean Corpuscular HGB Conc 35.8 g/dl (32-36); Mean Corpuscular Hemoglobin 34.5 pg (26-34); Mean Corpuscular Volume 96.3 fl (80-100); Mean Platelet Volume 10.4 fl (7.4-10.4); Platelet Count Result 143 k/mm3 (150-375); Red Blood Count 4.09 M/mm3 (4.6-6.20); Red Cell Distribution Width 13.8 % (11.5-14.5); White Blood Count 5.4 K/mm3 (4.5-10.0)
[2024-07-29 06:47] LABS: Anion Gap 8 mmol/L (4-12); Blood Urea Nitrogen 38 mg/dL (9-20); Calcium 7.7 mg/dL (8.4-10.2); Carbon Dioxide 24 mmol/L (22-30); Chloride 105 mmol/L (98-107); Estimated CRCL calculation 37 ml/min; Estimated Glomerular Filt Rate 51; Glucose 97 mg/dL (65-110); Potassium 3.7 mmol/L (3.4-5.0); Sodium 137 mmol/L (137-145)
[2024-07-29 07:43] LABS: Glucose Point of Care 104 mg/dl (65-105)
--- NOTE | 2024-07-29 08:42 | PM.IMPN ---
Progress Note: A&P Assessment and Plan (1) Sepsis: Code(s): A41.9 - Sepsis, unspecified organism Status: Acute Assessment and Plan: Meets SIRS criteria: fever, tachycardia, leukocytosis, acute kidney injury, and hyperbilirubinemia with a SOFA score of at least 4 - lactic acid: 2 > 1.2 - Recieved sepsis bolus - suspected source: UTI - blood cultures drawn on 07/27: Gram positive cocci cluster - repeat blood culture on 07/31 after patient has been on vancomycin for 48 hours - Antibiotics: vancomycin started on 07/29, remains on Keflex - UA: turbid appearance with 2+ protein, trace ketones, 2+ blood, negative nitrates, 3+ leukocytes, 11-20 RBC, > 100 WBC, 4+ bacteria - UC obtained on 07/27: Coag neg staph, not saprophyti - CXR: No focal infiltrate or effusion. (2) Bacteremia: Code(s): R78.81 - Bacteremia Status: Acute Assessment and Plan: - blood cultures drawn on 07/27: Gram positive cocci cluster concerning for staph - repeat blood culture on 07/31 after patient has been on vancomycin for 48 hours - started on vancomycin on 07/29 - echo ordered (3) Urinary tract infection: Code(s): N39.0 - Urinary tract infection, site not specified Status: Acute Assessment and Plan: - UA: turbid apperance with 2+ protein, trace ketones, 2+ blood, negative nitrates, 3+ leukocytes, 11-20 RBC, > 100 WBC, 4+ bacteria - UC obtained on 07/27: Coag neg staph, not saprophyti - no previous micro to be reviewed - antibiotic: keflex and vancomycin (4) Afib: Code(s): I48.91 - Unspecified atrial fibrillation Status: Acute Assessment and Plan: Patient went into afib RVR into the 140s yesterday 07/28, per RN. Given metoprolol PO x1 and converted back into sinus rhythm. - Started on metoprolol 12.5 mg BID, holding lisinopril as patient has been hypotensive on metoprolol alone. - Telemetry - Cardiology consulted, appreciate recommendations Eliquis 2.5 mg BID if okay with urology Echo ordered (5) Left ureteral stone: Code(s): N20.1 - Calculus of ureter Status: Acute Assessment and Plan: Abdomen/pelvis CT: Bilateral hydroureteronephrosis secondary to calculi within the left-sided ureter as well as dependent within the bladder (possibly recently passed). - Renal US: Normal kidney sizes. No hydronephrosis. - Urology consulted - s/p Cystoscopy, bilateral retrograde pyelograms, bilateral ureteral stent placement 6 [place] contour, complex Gregory catheter [address] on 07/[address] Constantino - Agree with renal ultrasound to further assess degree of bilateral hydroureteronephrosis - Urine clear on slow CBI this morning, clamped at 1030. Maintain Gregory for now. - Agree with culture-directed abx for UTI. Blood and urine cultures pending. - Plan for outpatient stone treatment, stent management after his infection has cleared. - Follows with Dr. Hammond for urology management. (6) Hydroureteronephrosis: Code(s): N13.30 - Unspecified hydronephrosis Status: Acute Assessment and Plan: Abdomen/pelvis CT: Bilateral hydroureteronephrosis secondary to calculi within the left-sided ureter as well as dependent within the bladder (possibly recently passed). - Renal US: Normal kidney sizes. No hydronephrosis. - Urology consulted - s/p Cystoscopy, bilateral retrograde pyelograms, bilateral ureteral stent placement 6 [place] contour, complex Gregory catheter [address] on 07/[address] Constantino - Agree with renal ultrasound to further assess degree of bilateral hydroureteronephrosis - Urine clear on slow CBI this morning, clamped at 1030. Maintain Gregory for now. - Agree with culture-directed abx for UTI. Blood and urine cultures pending. - Plan for outpatient stone treatment, stent management after his infection has cleared. - Follows with Dr. Hammond for urology management. (7) Acute kidney injury: Code(s): N17.9 - Acute kidney failure, unspecified Status: Acute Assessment and Plan: BUN and creatinine of 49 and 2.82 respectively on admission. Due to hydroureteronephrosis from stones and also likely some component related to sepsis. - BUN/Cr 38/1.32 on am labs - He was judiciously hydrated with close monitoring of volume status, renal function, and electrolytes. - Renal US: Normal kidney sizes. No hydronephrosis. - All medications will be renally dosed and nephrotoxic agents will be avoided. (8) Transaminitis: Code(s): R74.01 - Elevation of levels of liver transaminase levels Status: Acute Assessment and Plan: AST and ALT are a bit elevated however total bilirubin is 5.8. No findings noted on CT scan to correlate. Continue to monitor for now and check hepatitis panel, total CK, and fractionate bilirubin. Right upper quadrant ultrasound also ordered. (9) Hypertension: Code(s): I10 - Essential (primary) hypertension Status: Acute Assessment and Plan: Chronic, currently borderline hypotensive - Holding lisinopril 20 mg daily as patient has been started on metoprolol 12.5 mg BID for afib - Blood pressures remain stable, continue to monitor Time Spent With Patient Time with patient: 25 - 35 minutes Subjective Date/time seen: 07/29/24 08:42 Interval history: 88-year-old male with history of dementia, stroke, hypertension, and benign prostatic hyperplasia who presented to the hospital via EMS from home for evaluation of abdominal pain, weakness, and fever. Patient is pleasant lying comfortably in bed. He continue to endorse weakness and mild abdominal pain that he states has improved since admission. He has no other complaints denying chest pain, shortness of breath, palpitations, nausea/vomiting and abdominal pain. Patient developed Afib RVR yesterday which converted back to sinus rhythm after receiving one dose of PO metoprolol. Remains on metoprolol 12.5 mg BID. Cardiology consulted and recommending eliquis 2.5 BID if okay with urology and an echo. Review of Systems Review of Systems: All systems reviewed & are unremarkable except as noted in HPI and below Exam Narrative: AF HR 62 RR 95 SPO2 95 BP 97/66 General: male in no acute respiratory distress who is nontoxic appearing, lying semi recumbent in bed. HEENT: Normocephalic. Atraumatic. Extraocular movement intact. Sclera clear and anicteric. No facial asymmetry. Chest: Lungs are clear to auscultation bilaterally. No wheezes or crackles. CV: Heart was regular rate and rhythm. S1/S2. No murmurs, gallops, or rubs. : Jennifer colored urine without hematuria or clots in the [place]. Abd: Abdomen was soft. Nontender. Nondistended. Positive bowel sounds. Ext: No clubbing, cyanosis, or edema. 2+ DP pulses bilaterally. Neuro: Patient is alert. Speech is clear. Objective Data Vital Signs Vital Signs: Vital Signs - 24 hr 07/28/24 10:15 07/28/24 10:58 07/28/24 12:00 Temperature 97.7 F Pulse Rate Respiratory Rate Blood Pressure Pulse Oximetry 96 98 Oxygen Delivery Nasal Cannula Nasal Cannula Oxygen Flow Rate 4 2 07/28/24 12:00 07/28/24 12:45 07/28/24 16:00 Temperature 98.9 F Pulse Rate 108 H 110 H 125 H Respiratory Rate 20 Blood Pressure 91/67 L Pulse Oximetry 93 Oxygen Delivery Oxygen Flow Rate 07/28/24 16:30 07/28/24 17:03 07/28/24 20:00 Temperature 100.8 F H Pulse Rate 120 H Respiratory Rate 16 Blood Pressure 104/84 Pulse Oximetry 95 95 94 Oxygen Delivery Nasal Cannula Nasal Cannula Oxygen Flow Rate 1 1 07/28/24 20:00 07/28/24 20:08 07/28/24 21:36 Temperature 98.0 F Pulse Rate 103 H 124 H 94 Respiratory Rate 18 Blood Pressure 90/50 L 104/68 Pulse Oximetry 94 Oxygen Delivery Oxygen Flow Rate 07/28/24 23:00 07/29/24 00:00 07/29/24 00:30 Temperature 97.5 F L Pulse Rate 97 89 83 Respiratory Rate 18 Blood Pressure 107/70 Pulse Oximetry 96 Oxygen Delivery Oxygen Flow Rate 07/29/24 04:00 07/29/24 04:55 07/29/24 08:00 Temperature 98.0 F 98.2 F Pulse Rate 79 84 68 Respiratory Rate 16 18 Blood Pressure 104/69 92/64 L Pulse Oximetry 93 94 Oxygen Delivery Oxygen Flow Rate Intake/Output Intake/Output: Intake & Output 07/26/24 07/27/24 07/28/24 07/29/24 23:59 23:59 23:59 23:59 Intake Total 2113.3 2870 300 Output Total 8300 2850 700 Balance -6186.7 20 -400 Meds/Results Medications: Active Medications Generic Name Dose Route Start Last Admin Trade Name Freq PRN Reason Stop Dose Admin Acetaminophen 650 mg 07/28/24 00:20 07/28/24 17:19 Acetaminophen 325 Mg Tablet PO 650 mg Q6H PRN Administration Mild Pain (1-3) or Fever Hydrocodone Bitart/Acetaminophen 1 tab 07/27/24 20:31 Hydrocodone/Acetaminophen (*Crx) 5-325 Mg Tablet PO Q4H PRN Pain Rated 1-6 Cephalexin HCl 500 mg 07/28/24 12:00 07/29/24 05:56 Cephalexin 500 Mg Capsule PO 500 mg Q6HR AMBIKA Administration Docusate Sodium 100 mg 07/28/24 09:00 07/28/24 17:19 Docusate Sodium 100 Mg Capsule PO 100 mg BID AMBIKA Administration Finasteride 5 mg 07/28/24 09:00 07/28/24 11:34 Finasteride 5 Mg Tablet PO 5 mg DAILY AMBIKA Administration Hyoscyamine 0.125 mg 07/27/24 20:31 07/29/24 03:09 Hyoscyamine Sulfate 0.125 Mg Tablet SUBLINGUAL 0.125 mg Q6H PRN Administration Bladder Spasm Lactated Ringer's 1,000 mls @ 75 mls/hr 07/28/24 20:10 07/28/24 21:30 Lr - Lactated Ringers Iv IV CONT 75 mls/hr .[id number] AMBIKA Administration Metoprolol Tartrate 12.5 mg 07/28/24 22:35 07/28/24 23:00 Metoprolol Tartrate 12.5 Mg Tablet PO 12.5 mg Q12HR AMBIKA Administration Morphine Sulfate 2 mg 07/27/24 20:31 Morphine Sulfate (*Crx) 2 Mg/Ml Inj IV PUSH Q2H PRN Pain Rated 7-10 Naloxone HCl 0.1 mg 07/27/24 20:31 Naloxone Hcl 0.4 Mg/Ml Vial IV PUSH Q2M PRN Opiate Reversal Ondansetron HCl 4 mg 07/27/24 20:31 Ondansetron Inj 4 Mg/2 Ml Vial IV PUSH Q12H PRN Nausea And Vomiting Perflutren Lipid Microsphere 0 ml 07/28/24 22:35 Perflutren Lipid Microspheres 1.5 Ml Vial Diluted To 10 Ml Total Volume IV PUSH 07/31/24 22:35 ONCE PRN adequate visualization Protocol Tamsulosin HCl 0.4 mg 07/27/24 23:45 07/28/24 20:28 Tamsulosin Hcl 0.4 Mg Capsule PO 0.4 mg HS AMBIKA Administration Radiology Results: ITS Impressions Chest X-Ray 07/27/24 13:29 IMPRESSION: No focal infiltrate or effusion. Abdomen/Pelvis CT 07/27/24 14:23 IMPRESSION: Bilateral hydroureteronephrosis secondary to calculi within the left-sided ureter as well as dependent within the bladder (possibly recently passed). Renal Ultrasound 07/28/24 10:34 IMPRESSION: 1. Normal kidney sizes. No hydronephrosis. Labs Labs: Laboratory Results - last 24 hr 07/28/24 07/28/24 07/28/24 08:48 11:42 17:00 WBC RBC Hgb Hct MCV MCH MCHC RDW Plt Count MPV Sodium Potassium Chloride Carbon Dioxide Anion Gap BUN Creatinine Estim Creat Clear Calc Estimated GFR Glucose POC Capillary Glucose 105 164 H 113 H Lactic Acid Calcium 07/28/24 07/28/24 07/29/24 18:35 19:39 05:54 WBC 5.4 RBC 4.09 L Hgb 14.1 Hct 39.4 L MCV 96.3 MCH 34.5 H MCHC 35.8 RDW 13.8 Plt Count 143 L MPV 10.4 Sodium 137 Potassium 3.7 Chloride 105 Carbon Dioxide 24 Anion Gap 8 BUN 38 H Creatinine 1.32 H Estim Creat Clear Calc 37 Estimated GFR 51 L Glucose 97 POC Capillary Glucose 140 H Lactic Acid 1.2 Calcium 7.7 L 07/29/24 07:41 WBC RBC Hgb Hct MCV MCH MCHC RDW Plt Count MPV Sodium Potassium Chloride Carbon Dioxide Anion Gap BUN Creatinine Estim Creat Clear Calc Estimated GFR Glucose POC Capillary Glucose 104 Lactic Acid Calcium Quality VTE Prophylaxis VTE prophylaxis: mechanical ordered
[2024-07-29] MEDS: DOCUSATE SODIUM 100 MG CAPSULE PO ×2 (10:17→17:18)
[2024-07-29] MEDS: METOPROLOL TARTRATE 12.5 MG TABLET PO ×2 (10:17→20:11)
[2024-07-29] MEDS: FINASTERIDE 5 MG TABLET PO (10:17)
[2024-07-29] MEDS: LACTATED RINGERS 1,000 ML 75 ML IV CONT ×2 (10:28→23:03)
[2024-07-29] MEDS: PERFLUTREN LIPID MICROSPHERES 1.5 ML VIAL DILUTED TO 10 ML TOTAL VOLUME IV PUSH (11:50)
[2024-07-29 11:59] LABS: Glucose Point of Care 124 mg/dl (65-105)
--- NOTE | 2024-07-29 12:33 | IVDEFINITY ---
Prior to administration of IV Definity the patient was educated on the risks and benefits of the imaging enhancing agent including potential adverse side effects. The patient verbalized understanding. Allergies were verified. No exclusion criteria were identified and at least one of the following inclusion criteria were met: 1) physician request, 2) patient technically difficult to image (per the [place] [employer] guidelines of two or more segments not discernable within the apical view), or 3) questionable left ventricular function. ?
--- NOTE | 2024-07-29 13:19 | PM.CNCAR ---
Assessment and Plan Assessment and plan (1) PAF (paroxysmal atrial fibrillation): Code(s): I48.0 - Paroxysmal atrial fibrillation Status: Acute Assessment and Plan: Back in sinus rhythm. Probably due to age and UTI. [id number] 5. On Metoprolol. If OK with urology, would start Eliquis 2.5 mg BID. Obtain echo. (2) Hypertension: Code(s): I10 - Essential (primary) hypertension Status: Acute Assessment and Plan: Low normal. Hold off on Lisinopril as he is on Metoprolol now. (3) Left ureteral stone: Code(s): N20.1 - Calculus of ureter Status: Acute Assessment and Plan: Managed by urology. History of Present Illness History of Present Illness Consult date/time: 07/29/24 13:19 Reason For Visit: Infected ureteral stone, TAVIA Narrative: 88 yr old man presents to ER with abdominal pain and fever. He has a history of dementia, stroke, hypertension. His grandson is at bedside. He reports having severe abdominal pain and fever and found to have UTI and kidney stones and had bilateral ureteral stents placed, and found to go into atrial fibrillation. He no longer has abdominal pain. He is limited at walking in his house with a walker due to balance issues and he cannot see well. Denies chest pain, sob, orthopnea, PND, edema, dizziness, palpitations. Review of Systems Review of Systems: All systems reviewed & are unremarkable except as noted in HPI and below Constitutional: Constitutional: Reports as per HPI, Denies chills and Reports fever(s) Cardiovascular: Cardiovascular: Reports as per HPI, Denies chest pain and Denies irregular heart rhythm Respiratory: Respiratory: Reports as per HPI and Denies dyspnea Gastrointestinal: Gastrointestinal: Reports as per HPI and Denies abdominal pain Genitourinary: Genitourinary: Reports as per HPI Musculoskeletal: Musculoskeletal: Reports as per HPI Neurologic: Reports as per HPI, Denies dizziness and Denies syncope [facility] Past Medical History Medical History (Updated 07/29/24 @ 13:23 by Gautam Thompson DO) Benign prostatic hyperplasia Glaucoma Hypertension Dementia Cerebrovascular accident Surgical History Surgical History (Updated 07/27/24 @ 23:39 by Eleonora Lopez PA-C) History of placement of ureteral stent History of cystoscopy Family History Family History Other Unknown family medical history Social History Social History Social History: Surrogate medical decision maker: Haley Gallardo, spouse ([phone]). Code status: Full code. Smoking status: Former smoker Alcohol intake: never Substance use: never Do You Feel Safe in your Home?: Yes Lack of Transportation: No Lack of Food: Never True Current Housing: I Have Housing Concerned About Future Housing: No Difficulty Paying Gas/Electric Bills: No Difficulty Paying for Meds: No Currently Unemployed: No Education: Grade School Difficulty w/ Childcare or Family Care: No Spiritual care concerns: Yes Meds Home Medications and Allergies Home Medications ?Medication ?Instructions ?Recorded ?Confirmed ?Type finasteride 5 mg tablet 5 mg PO DAILY 07/27/24 07/27/24 History lisinopril 20 mg tablet 20 mg PO DAILY 07/27/24 07/27/24 History tamsulosin 0.4 mg capsule 0.4 mg PO Q24H 07/27/24 07/27/24 History Allergies Allergy/AdvReac Type Severity Reaction Status Date / Time No Known Allergies Allergy Verified 07/27/24 13:05 Vital Signs Vital Signs - 24 hr 07/28/24 16:00 07/28/24 16:30 07/28/24 17:03 Temperature 100.8 F H Pulse Rate 125 H 120 H Respiratory Rate 16 Blood Pressure 104/84 Pulse Oximetry 95 95 Oxygen Delivery Nasal Cannula Oxygen Flow Rate 1 07/28/24 20:00 07/28/24 20:00 07/28/24 20:08 Temperature 98.0 F Pulse Rate 103 H 124 H Respiratory Rate 18 Blood Pressure 90/50 L Pulse Oximetry 94 94 Oxygen Delivery Nasal Cannula Oxygen Flow Rate 1 07/28/24 21:36 07/28/24 23:00 07/29/24 00:00 Temperature Pulse Rate 94 97 89 Respiratory Rate Blood Pressure 104/68 Pulse Oximetry Oxygen Delivery Oxygen Flow Rate 07/29/24 00:30 07/29/24 04:00 07/29/24 04:55 Temperature 97.5 F L 98.0 F Pulse Rate 83 79 84 Respiratory Rate 18 16 Blood Pressure 107/70 104/69 Pulse Oximetry 96 93 Oxygen Delivery Oxygen Flow Rate 07/29/24 08:00 07/29/24 10:17 07/29/24 10:24 Temperature 98.2 F Pulse Rate 68 89 Respiratory Rate 18 Blood Pressure 92/64 L Pulse Oximetry 94 Oxygen Delivery Room Air Oxygen Flow Rate 07/29/24 10:37 07/29/24 10:37 07/29/24 12:00 Temperature 98.1 F Pulse Rate 72 62 Respiratory Rate 18 Blood Pressure 97/66 L Pulse Oximetry 95 95 Oxygen Delivery Room Air Oxygen Flow Rate 07/29/24 12:00 Temperature Pulse Rate 64 Respiratory Rate Blood Pressure Pulse Oximetry Oxygen Delivery Oxygen Flow Rate Exam Const: General: cooperative, healthy appearing and comfortable Resp: Auscultation: clear to auscultation bilaterally, no crackles, no rales, no rhonchi and no wheezes Cardio: Rate: regular rate Rhythm: regular rhythm Heart sounds: no murmurs GI: GI Palp: No abdominal tenderness and Yes Soft to palpation Neuro: General: oriented to person, oriented to place and oriented to time Extrem: Right lower extremity: no edema Left lower extremity: no edema Results Labs and Meds 07/29/24 05:54 07/29/24 05:54 Lab results: CBC 07/29/24 Range/Units 05:54 WBC 5.4 (4.5-10.0) K/mm3 RBC 4.09 L (4.6-6.20) M/mm3 Hgb 14.1 (14.0-18.0) g/dL Hct 39.4 L (42.0-52.0) % Plt Count 143 L (150-375) k/mm3 Comprehensive Metabolic Panel 07/29/24 Range/Units 05:54 Sodium 137 (137-145) mmol/L Potassium 3.7 (3.4-5.0) mmol/L Chloride 105 (98-107) mmol/L Carbon Dioxide 24 (22-30) mmol/L BUN 38 H (9-20) mg/dL Creatinine 1.32 H (0.7-1.3) mg/dL Glucose 97 (65-110) mg/dL Calcium 7.7 L (8.4-10.2) mg/dL Intake and Output 07/28/24 07/29/24 07/29/24 23:59 07:59 15:59 Intake Total 2340 300 1480 Output Total 1400 700 Balance 940 -400 1480 Intake: IV 1000 1000 Lactated Ringers 1,000 ml @ 75 1000 1000 mls/hr IV CONT .[id number] [facility] Rx# :[id number] Oral 1340 300 480 Output: Catheter Urine 1400 700 Urethral Catheter 1400 700 Patient Weight 07/29/24 23:59 Weight 96.6 kg
[2024-07-29 16:43] LABS: Glucose Point of Care 118 mg/dl (65-105)
[2024-07-29] MEDS: TAMSULOSIN HCL 0.4 MG CAPSULE PO (20:11)
[2024-07-29 21:39] LABS: Glucose Point of Care 125 mg/dl (65-105)
[2024-07-30] VITALS (11 sets, daily range): BP systolic 120–134; BP diastolic 68–86; PULSE 60–84; RESP 16–18; TEMP 36.2–36.5; O2SAT 94–97
[2024-07-30] MEDS: CEPHALEXIN 500 MG CAPSULE PO (05:18)
--- NOTE | 2024-07-30 07:42 | PM.IMPN ---
Progress Note: A&P Assessment and Plan (1) Sepsis: Code(s): A41.9 - Sepsis, unspecified organism Status: Acute Assessment and Plan: Meets SIRS criteria: fever, tachycardia, leukocytosis, acute kidney injury, and hyperbilirubinemia with a SOFA score of at least 4 - lactic acid: 2 > 1.2 - Recieved sepsis bolus - suspected source: UTI - blood cultures drawn on 07/27: staph simulans - repeat blood culture on 07/31 after patient has been on antibiotics for extended period of time - Antibiotics: vancomycin started on 07/30, transitioned to ancef per culture sensitivities. Discontinue keflex - UA: turbid appearance with 2+ protein, trace ketones, 2+ blood, negative nitrates, 3+ leukocytes, 11-20 RBC, > 100 WBC, 4+ bacteria - UC obtained on 07/27: staphylococcus simulans pansensitive - CXR: No focal infiltrate or effusion. (2) Bacteremia: Code(s): R78.81 - Bacteremia Status: Acute Assessment and Plan: - blood cultures drawn on 07/27: staph simulans - repeat blood culture on 07/31 after patient has been on antibiotics for extended period of time - Antibiotics: vancomycin started on 07/30, transitioned to ancef per culture sensitivities. Discontinue keflex - echo: LVEF 55-60%. (3) Urinary tract infection: Code(s): N39.0 - Urinary tract infection, site not specified Status: Acute Assessment and Plan: - UA: turbid apperance with 2+ protein, trace ketones, 2+ blood, negative nitrates, 3+ leukocytes, 11-20 RBC, > 100 WBC, 4+ bacteria - UC obtained on 07/27: staphylococcus simulans - no previous micro to be reviewed - Antibiotics: vancomycin started on 07/30, transitioned to ancef per culture sensitivities. Discontinue keflex (4) Afib: Code(s): I48.91 - Unspecified atrial fibrillation Status: Acute Assessment and Plan: Patient went into afib RVR into the 140s yesterday 07/28, per RN. Given metoprolol PO x1 and converted back into sinus rhythm. - Started on metoprolol 12.5 mg BID, holding lisinopril as patient has been hypotensive on metoprolol alone. - Telemetry - Cardiology consulted, appreciate recommendations Eliquis 2.5 mg BID if okay with urology Echo LVEF 55-60% (5) Left ureteral stone: Code(s): N20.1 - Calculus of ureter Status: Acute Assessment and Plan: Abdomen/pelvis CT: Bilateral hydroureteronephrosis secondary to calculi within the left-sided ureter as well as dependent within the bladder (possibly recently passed). - Renal US: Normal kidney sizes. No hydronephrosis. - Urology consulted - s/p Cystoscopy, bilateral retrograde pyelograms, bilateral ureteral stent placement 6 [place] contour, complex Gregory catheter [address] on 07/[address] Constantino - Agree with renal ultrasound to further assess degree of bilateral hydroureteronephrosis - Urine clear on slow CBI this morning, clamped at 1030. Maintain Gregory for now. - Agree with culture-directed abx for UTI. Blood and urine cultures pending. - Plan for outpatient stone treatment, stent management after his infection has cleared. - Follows with Dr. Hammond for urology management. (6) Hydroureteronephrosis: Code(s): N13.30 - Unspecified hydronephrosis Status: Acute Assessment and Plan: Abdomen/pelvis CT: Bilateral hydroureteronephrosis secondary to calculi within the left-sided ureter as well as dependent within the bladder (possibly recently passed). - Renal US: Normal kidney sizes. No hydronephrosis. - Urology consulted - s/p Cystoscopy, bilateral retrograde pyelograms, bilateral ureteral stent placement 6 [place] contour, complex Gregory catheter [address] on 07/[address] Constantino - Agree with renal ultrasound to further assess degree of bilateral hydroureteronephrosis - Urine clear on slow CBI this morning, clamped at 1030. Maintain Gregory for now. - Agree with culture-directed abx for UTI. Blood and urine cultures pending. - Plan for outpatient stone treatment, stent management after his infection has cleared. - Follows with Dr. Hammond for urology management. (7) Acute kidney injury: Code(s): N17.9 - Acute kidney failure, unspecified Status: Acute Assessment and Plan: BUN and creatinine of 49 and 2.82 respectively on admission. Due to hydroureteronephrosis from stones and also likely some component related to sepsis. - BUN/Cr 28/0.95 on am labs - He was judiciously hydrated with close monitoring of volume status, renal function, and electrolytes. - Renal US: Normal kidney sizes. No hydronephrosis. - All medications will be renally dosed and nephrotoxic agents will be avoided. Resolved. (8) Transaminitis: Code(s): R74.01 - Elevation of levels of liver transaminase levels Status: Acute Assessment and Plan: AST and ALT are a bit elevated however total bilirubin is 5.8. No findings noted on CT scan to correlate. Continue to monitor for now Hepatitis panel negative Total CK 708 Fractionate bilirubin (9) Hypertension: Code(s): I10 - Essential (primary) hypertension Status: Acute Assessment and Plan: Chronic, currently borderline hypotensive - Holding lisinopril 20 mg daily as patient has been started on metoprolol 12.5 mg BID for afib - Blood pressures remain stable, continue to monitor Time Spent With Patient Time with patient: 25 - 35 minutes Subjective Date/time seen: 07/30/24 07:42 Interval history: 88-year-old male with history of dementia, stroke, hypertension, and benign prostatic hyperplasia who presented to the hospital via EMS from home for evaluation of abdominal pain, weakness, and fever. patient is pleasant lying comfortably in bed with family at bedside. He has no complaints at this time denies chest pain, shortness a breath, palpitations, nausea/ vomiting, and abdominal pain. Review of Systems Review of Systems: All systems reviewed & are unremarkable except as noted in HPI and below Exam Narrative: AF HR 67 RR 18 SpO2 97 BP 120/68 General: male in no acute respiratory distress who is nontoxic appearing, lying semi recumbent in bed. HEENT: Normocephalic. Atraumatic. No facial asymmetry. Chest: Lungs are clear to auscultation bilaterally. No wheezes or crackles. CV: Heart was regular rate and rhythm. S1/S2. No murmurs, gallops, or rubs. : Slight hematuria with pink tinged colored urine, no clots in the Gregory. Abd: Abdomen was soft. Nontender. Nondistended. Positive bowel sounds. Ext: No clubbing, cyanosis, or edema. 2+ DP pulses bilaterally. Neuro: Patient is alert. Speech is clear. Objective Data Vital Signs Vital Signs: Vital Signs - 24 hr 07/29/24 08:00 07/29/24 10:17 07/29/24 10:24 Temperature 98.2 F Pulse Rate 68 89 Respiratory Rate 18 Blood Pressure 92/64 L Pulse Oximetry 94 Oxygen Delivery Room Air 07/29/24 10:37 07/29/24 10:37 07/29/24 12:00 Temperature 98.1 F Pulse Rate 72 62 Respiratory Rate 18 Blood Pressure 97/66 L Pulse Oximetry 95 95 Oxygen Delivery Room Air 07/29/24 12:00 07/29/24 16:00 07/29/24 16:00 Temperature 98.2 F Pulse Rate 64 71 75 Respiratory Rate 18 Blood Pressure 96/66 L Pulse Oximetry 95 Oxygen Delivery 07/29/24 20:00 07/29/24 20:00 07/29/24 20:00 Temperature 98.2 F Pulse Rate 68 70 Respiratory Rate 16 Blood Pressure 119/81 Pulse Oximetry 95 Oxygen Delivery Room Air 07/29/24 20:11 07/30/24 00:00 07/30/24 00:00 Temperature 97.7 F Pulse Rate 68 73 72 Respiratory Rate 18 Blood Pressure 125/75 Pulse Oximetry 95 Oxygen Delivery 07/30/24 04:00 07/30/24 05:11 Temperature 97.6 F Pulse Rate 66 67 Respiratory Rate 18 Blood Pressure 124/80 Pulse Oximetry 94 Oxygen Delivery Intake/Output Intake/Output: Intake & Output 07/27/24 07/28/24 07/29/24 07/30/24 23:59 23:59 23:59 23:59 Intake Total 2113.3 2870 2963.7 200 Output Total 8300 2850 1200 1000 Balance -6186.7 20 1763.7 -800 Meds/Results Medications: Active Medications Generic Name Dose Route Start Last Admin Trade Name Freq PRN Reason Stop Dose Admin Acetaminophen 650 mg 07/28/24 00:20 07/28/24 17:19 Acetaminophen 325 Mg Tablet PO 650 mg Q6H PRN Administration Mild Pain (1-3) or Fever Hydrocodone Bitart/Acetaminophen 1 tab 07/27/24 20:31 Hydrocodone/Acetaminophen (*Crx) 5-325 Mg Tablet PO Q4H PRN Pain Rated 1-6 Cephalexin HCl 500 mg 07/29/24 18:00 07/30/24 05:18 Cephalexin 500 Mg Capsule PO 500 mg Q6HR AMBIKA Administration Docusate Sodium 100 mg 07/28/24 09:00 07/29/24 17:18 Docusate Sodium 100 Mg Capsule PO 100 mg BID AMBIKA Administration Finasteride 5 mg 07/28/24 09:00 07/29/24 10:17 Finasteride 5 Mg Tablet PO 5 mg DAILY AMBIKA Administration Hyoscyamine 0.125 mg 07/27/24 20:31 07/29/24 03:09 Hyoscyamine Sulfate 0.125 Mg Tablet SUBLINGUAL 0.125 mg Q6H PRN Administration Bladder Spasm Lactated Ringer's 1,000 mls @ 75 mls/hr 07/28/24 20:10 07/29/24 23:03 Lr - Lactated Ringers Iv IV CONT 75 mls/hr .[id number] AMBIKA Administration Metoprolol Tartrate 12.5 mg 07/28/24 22:35 07/29/24 20:11 Metoprolol Tartrate 12.5 Mg Tablet PO 12.5 mg Q12HR AMBIKA Administration Morphine Sulfate 2 mg 07/27/24 20:31 Morphine Sulfate (*Crx) 2 Mg/Ml Inj IV PUSH Q2H PRN Pain Rated 7-10 Naloxone HCl 0.1 mg 07/27/24 20:31 Naloxone Hcl 0.4 Mg/Ml Vial IV PUSH Q2M PRN Opiate Reversal Ondansetron HCl 4 mg 07/27/24 20:31 Ondansetron Inj 4 Mg/2 Ml Vial IV PUSH Q12H PRN Nausea And Vomiting Perflutren Lipid Microsphere 0 ml 07/29/24 08:53 Perflutren Lipid Microspheres 1.5 Ml Vial Diluted To 10 Ml Total Volume IV PUSH 08/01/24 08:55 ONCE PRN adequate visualization Protocol Tamsulosin HCl 0.4 mg 07/27/24 23:45 07/29/24 20:11 Tamsulosin Hcl 0.4 Mg Capsule PO 0.4 mg HS AMBIKA Administration Radiology Results: ITS Impressions Chest X-Ray 07/27/24 13:29 IMPRESSION: No focal infiltrate or effusion. Abdomen/Pelvis CT 07/27/24 14:23 IMPRESSION: Bilateral hydroureteronephrosis secondary to calculi within the left-sided ureter as well as dependent within the bladder (possibly recently passed). Renal Ultrasound 07/28/24 10:34 IMPRESSION: 1. Normal kidney sizes. No hydronephrosis. Labs Labs: Laboratory Results - last 24 hr 07/29/24 07/29/24 07/29/24 07:41 11:53 16:38 POC Capillary Glucose 104 124 H 118 H 07/29/24 20:31 POC Capillary Glucose 125 H Quality VTE Prophylaxis VTE prophylaxis: mechanical ordered
--- NOTE | 2024-07-30 07:50 | PM.PNCARD ---
Progress Note: A&P Assessment and Plan (1) PAF (paroxysmal atrial fibrillation): Code(s): I48.0 - Paroxysmal atrial fibrillation Status: Acute Assessment and Plan: Back in sinus rhythm. Probably due to age and UTI. [id number] 5. On Metoprolol. If OK with urology, would start Eliquis 2.5 mg BID. Obtain echo. If echo is OK may d/c home from cardiology standpoint and f/u with me in 1 week. (2) Hypertension: Code(s): I10 - Essential (primary) hypertension Status: Acute Assessment and Plan: Stable. Hold off on Lisinopril as he is on Metoprolol now. (3) Left ureteral stone: Code(s): N20.1 - Calculus of ureter Status: Acute Assessment and Plan: Managed by urology. Subjective Date/time seen: 07/30/24 07:50 Interval history: Denies chest pain or sob. Exam Const: General: cooperative, healthy appearing and comfortable Orientation/consciousness: oriented to person, oriented to place and oriented to time Resp: Auscultation: clear to auscultation bilaterally, no crackles, no rales, no rhonchi and no wheezes Cardio: Rate: regular rate Rhythm: regular rhythm Heart sounds: no murmurs Neuro: General: oriented to person, oriented to place and oriented to time Extrem: Right lower extremity: no edema Left lower extremity: no edema Objective Data Vital Signs Vital Signs: Vital Signs - 24 hr 07/29/24 08:00 07/29/24 10:17 07/29/24 10:24 Temperature 98.2 F Pulse Rate 68 89 Respiratory Rate 18 Blood Pressure 92/64 L Pulse Oximetry 94 Oxygen Delivery Room Air 07/29/24 10:37 07/29/24 10:37 07/29/24 12:00 Temperature 98.1 F Pulse Rate 72 62 Respiratory Rate 18 Blood Pressure 97/66 L Pulse Oximetry 95 95 Oxygen Delivery Room Air 07/29/24 12:00 07/29/24 16:00 07/29/24 16:00 Temperature 98.2 F Pulse Rate 64 71 75 Respiratory Rate 18 Blood Pressure 96/66 L Pulse Oximetry 95 Oxygen Delivery 07/29/24 20:00 07/29/24 20:00 07/29/24 20:00 Temperature 98.2 F Pulse Rate 68 70 Respiratory Rate 16 Blood Pressure 119/81 Pulse Oximetry 95 Oxygen Delivery Room Air 07/29/24 20:11 07/30/24 00:00 07/30/24 00:00 Temperature 97.7 F Pulse Rate 68 73 72 Respiratory Rate 18 Blood Pressure 125/75 Pulse Oximetry 95 Oxygen Delivery 07/30/24 04:00 07/30/24 05:11 Temperature 97.6 F Pulse Rate 66 67 Respiratory Rate 18 Blood Pressure 124/80 Pulse Oximetry 94 Oxygen Delivery Intake/Output Intake/Output: Intake & Output 07/27/24 07/28/24 07/29/24 07/30/24 23:59 23:59 23:59 23:59 Intake Total 2113.3 2870 2963.7 200 Output Total 8300 2850 1200 1000 Balance -6186.7 20 1763.7 -800 Meds/Results Medications: Active Medications Generic Name Dose Route Start Last Admin Trade Name Freq PRN Reason Stop Dose Admin Acetaminophen 650 mg 07/28/24 00:20 07/28/24 17:19 Acetaminophen 325 Mg Tablet PO 650 mg Q6H PRN Administration Mild Pain (1-3) or Fever Hydrocodone Bitart/Acetaminophen 1 tab 07/27/24 20:31 Hydrocodone/Acetaminophen (*Crx) 5-325 Mg Tablet PO Q4H PRN Pain Rated 1-6 Cephalexin HCl 500 mg 07/29/24 18:00 07/30/24 05:18 Cephalexin 500 Mg Capsule PO 500 mg Q6HR AMBIKA Administration Docusate Sodium 100 mg 07/28/24 09:00 07/29/24 17:18 Docusate Sodium 100 Mg Capsule PO 100 mg BID AMBIKA Administration Finasteride 5 mg 07/28/24 09:00 07/29/24 10:17 Finasteride 5 Mg Tablet PO 5 mg DAILY AMBIKA Administration Hyoscyamine 0.125 mg 07/27/24 20:31 07/29/24 03:09 Hyoscyamine Sulfate 0.125 Mg Tablet SUBLINGUAL 0.125 mg Q6H PRN Administration Bladder Spasm Lactated Ringer's 1,000 mls @ 75 mls/hr 07/28/24 20:10 07/29/24 23:03 Lr - Lactated Ringers Iv IV CONT 75 mls/hr .[id number] AMBIKA Administration Vancomycin HCl 1,250 mg in 250 mls @ 166.667 mls/hr 07/30/24 08:00 Vancomycin 1,250 Mg/Ns 250 Ml IVPB 07/30/24 09:29 ONCE ONE Vancomycin HCl 1,250 mg in 250 mls @ 166.667 mls/hr 07/30/24 09:30 Vancomycin 1,250 Mg/Ns 250 Ml IVPB 07/30/24 10:59 ONCE ONE Vancomycin HCl 1,500 mg in 500 mls @ 250 mls/hr 07/31/24 08:00 Vancomycin 1,500 Mg/Ns 500 Ml IVPB Q24H AMBIKA Metoprolol Tartrate 12.5 mg 07/28/24 22:35 07/29/24 20:11 Metoprolol Tartrate 12.5 Mg Tablet PO 12.5 mg Q12HR AMBIKA Administration Morphine Sulfate 2 mg 07/27/24 20:31 Morphine Sulfate (*Crx) 2 Mg/Ml Inj IV PUSH Q2H PRN Pain Rated 7-10 Naloxone HCl 0.1 mg 07/27/24 20:31 Naloxone Hcl 0.4 Mg/Ml Vial IV PUSH Q2M PRN Opiate Reversal Ondansetron HCl 4 mg 07/27/24 20:31 Ondansetron Inj 4 Mg/2 Ml Vial IV PUSH Q12H PRN Nausea And Vomiting Perflutren Lipid Microsphere 0 ml 07/29/24 08:53 Perflutren Lipid Microspheres 1.5 Ml Vial Diluted To 10 Ml Total Volume IV PUSH 08/01/24 08:55 ONCE PRN adequate visualization Protocol Tamsulosin HCl 0.4 mg 07/27/24 23:45 07/29/24 20:11 Tamsulosin Hcl 0.4 Mg Capsule PO 0.4 mg HS AMBIKA Administration Radiology Results: ITS Impressions Chest X-Ray 07/27/24 13:29 IMPRESSION: No focal infiltrate or effusion. Abdomen/Pelvis CT 07/27/24 14:23 IMPRESSION: Bilateral hydroureteronephrosis secondary to calculi within the left-sided ureter as well as dependent within the bladder (possibly recently passed). Renal Ultrasound 07/28/24 10:34 IMPRESSION: 1. Normal kidney sizes. No hydronephrosis. Labs Labs: Laboratory Results - last 24 hr 07/29/24 07/29/24 07/29/24 11:53 16:38 20:31 POC Capillary Glucose 124 H 118 H 125 H
[2024-07-30 07:59] LABS: Basophils Percent Auto 0.4 % (0.2-1.2); Eosinophils Absolute Auto 0.1 K/mm3 (0-0.3); Eosinophils Percent Auto 1.3 % (0-4.4); Hematocrit 35.5 % (42.0-52.0); Immature Granulocyte Absolute 0.02 K/mm3 (0.00-0.031); Immature Granulocyte Percent A 0.4 % (0-0.5); Lymphocytes Absolute Auto 1.46 K/mm3 (0.9-3.2); Lymphocytes Percent Auto 27.1 % (18.3-44.2); Mean Corpuscular HGB Conc 36.6 g/dl (32-36); Mean Corpuscular Volume 92.9 fl (80-100); Mean Platelet Volume 10.2 fl (7.4-10.4); Monocytes Absolute Auto 0.6 K/mm3 (0.1-0.6); Monocytes Percent Auto 11.5 % (2.6-8.5); Neutrophils Absolute Auto 3.2 K/mm3 (1.3-6.7); Neutrophils Percent Auto 59.3 % (45.5-73.1); Platelet Count Result 126 k/mm3 (150-375); Red Blood Count 3.82 M/mm3 (4.6-6.20); Red Cell Distribution Width 13.2 % (11.5-14.5); White Blood Count 5.4 K/mm3 (4.5-10.0)
[2024-07-30 08:19] LABS: Alanine Aminotransferase 50 U/L (6-50); Albumin Level 2.4 g/dL (3.5-5.1); Alkaline Phosphatase 54 U/L (38-126); Anion Gap 4 mmol/L (4-12); Aspartate Amino Transferase 51 U/L (17-59); Bilirubin,Total 0.8 mg/dL (0.2-1.3); Blood Urea Nitrogen 25 mg/dL (9-20); Calcium 7.6 mg/dL (8.4-10.2); Carbon Dioxide 25 mmol/L (22-30); Chloride 106 mmol/L (98-107); Estimated CRCL calculation 57 ml/min; Estimated Glomerular Filt Rate > 60; Glucose 97 mg/dL (65-110); Potassium 3.6 mmol/L (3.4-5.0); Sodium 135 mmol/L (137-145)
[2024-07-30 08:28] LABS: Glucose Point of Care 105 mg/dl (65-105)
[2024-07-30] MEDS: METOPROLOL TARTRATE 12.5 MG TABLET PO ×2 (08:32→20:06)
[2024-07-30] MEDS: FINASTERIDE 5 MG TABLET PO (08:32)
[2024-07-30] MEDS: DOCUSATE SODIUM 100 MG CAPSULE PO ×2 (08:32→18:25)
[2024-07-30] MEDS: VANCOMYCIN 1,250 MG/NS 250 ML 1,250 MG/250 ML BAG 166.67 MG IVPB (08:34)
[2024-07-30 12:41] LABS: Glucose Point of Care 111 mg/dl (65-105)
[2024-07-30] MEDS: ceFAZolin 2 GM/D5W 50 ML 2 GM/50 ML BAG IVPB ×2 (12:52→21:22)
[2024-07-30] MEDS: LACTATED RINGERS 1,000 ML 75 ML IV CONT (12:55)
--- NOTE | 2024-07-30 15:28 | WPDUROPN2 ---
Progress Note: A&P Assessment and Plan (1) Acute kidney injury: Code(s): N17.9 - Acute kidney failure, unspecified Status: Acute (2) Acute UTI: Code(s): N39.0 - Urinary tract infection, site not specified Status: Acute (3) Left ureteral stone: Code(s): N20.1 - Calculus of ureter Status: Acute Assessment and Plan: - History stones in the past; bilateral renal stones noted on 07/27/24 CT - Per op note, obstructing left ureteral stone not clearly visualized on URS - Left ureteral stent in place (4) Hydroureteronephrosis: Code(s): N13.30 - Unspecified hydronephrosis Status: Acute Assessment and Plan: - s/p bilateral ureteral stent placement 07/27/24 - ? 2 obstructing stones with chronic bladder outlet obstruction (5) Benign prostatic hyperplasia: Code(s): N40.0 - Benign prostatic hyperplasia without lower urinary tract symptoms Status: Acute Assessment and Plan: - Cystoscopy: Enlarged vascular obstructing prostate with a large median lobe - Developed hematuria following cystoscopy requiring indwelling Gregory placement/CBI (RESOLVED) - Continue home finasteride/tamsulosin - Hx chronically elevated PSA >10yrs with two negative prostate biopsies in the past Plan - 07/28/24 Renal ultrasound shows resolved bilateral hydroureteronephrosis - Hematuria resolved. OK for void trial tomorrow morning, 0600. - Plan for outpatient stone treatment, stent management. - Follows with Dr. Hammond for urology management. Subjective Subjective Date/Time Seen: 07/30/24 15:28 Interval history: NAEO; Patient comfortable on exam. No issues with indwelling Gregory. Exam Const: General: comfortable and no acute distress Resp: Effort & Inspection: normal respiratory effort Other: Cough Urinary Catheter: Urinary Catheter: patent and draining and urine clear Neuro: Speech: normal speech Psych: Mental Status: mental status grossly normal Objective Data Vital Signs Vital Signs: Vital Signs - 24 hr 07/29/24 16:00 07/29/24 16:00 07/29/24 20:00 Temperature 98.2 F 98.2 F Pulse Rate 71 75 68 Respiratory Rate 18 16 Blood Pressure 96/66 L 119/81 Pulse Oximetry 95 95 Oxygen Delivery 07/29/24 20:00 07/29/24 20:00 07/29/24 20:11 Temperature Pulse Rate 70 68 Respiratory Rate Blood Pressure Pulse Oximetry Oxygen Delivery Room Air 07/30/24 00:00 07/30/24 00:00 07/30/24 04:00 Temperature 97.7 F Pulse Rate 73 72 66 Respiratory Rate 18 Blood Pressure 125/75 Pulse Oximetry 95 Oxygen Delivery 07/30/24 05:11 07/30/24 08:00 07/30/24 08:00 Temperature 97.6 F Pulse Rate 67 60 Respiratory Rate 18 Blood Pressure 124/80 Pulse Oximetry 94 Oxygen Delivery Room Air 07/30/24 08:32 07/30/24 12:00 07/30/24 14:00 Temperature 97.2 F L Pulse Rate 62 72 67 Respiratory Rate 18 Blood Pressure 120/68 Pulse Oximetry 97 Oxygen Delivery Intake/Output Intake/Output: Intake & Output 07/27/24 07/28/24 07/29/24 07/30/24 23:59 23:59 23:59 23:59 Intake Total 2113.3 2870 2963.7 1880 Output Total 8300 2850 1200 2050 Balance -6186.7 20 1763.7 -170 Meds/Results Medications: Active Medications Generic Name Dose Route Start Last Admin Trade Name Freq PRN Reason Stop Dose Admin Acetaminophen 650 mg 07/28/24 00:20 07/28/24 17:19 Acetaminophen 325 Mg Tablet PO 650 mg Q6H PRN Administration Mild Pain (1-3) or Fever Hydrocodone Bitart/Acetaminophen 1 tab 07/27/24 20:31 Hydrocodone/Acetaminophen (*Crx) 5-325 Mg Tablet PO Q4H PRN Pain Rated 1-6 Docusate Sodium 100 mg 07/28/24 09:00 07/30/24 08:32 Docusate Sodium 100 Mg Capsule PO 100 mg BID AMBIKA Administration Finasteride 5 mg 07/28/24 09:00 07/30/24 08:32 Finasteride 5 Mg Tablet PO 5 mg DAILY AMBIKA Administration Hyoscyamine 0.125 mg 07/27/24 20:31 07/29/24 03:09 Hyoscyamine Sulfate 0.125 Mg Tablet SUBLINGUAL 0.125 mg Q6H PRN Administration Bladder Spasm Lactated Ringer's 1,000 mls @ 75 mls/hr 07/28/24 20:10 07/30/24 12:55 Lr - Lactated Ringers Iv IV CONT 75 mls/hr .[id number] AMBIKA Administration Cefazolin Sodium 2 gm in 50 mls @ 100 mls/hr 07/30/24 13:00 07/30/24 12:52 Ancef 2 Gm/D5w 50 Ml IVPB 100 mls/hr Q8HR AMBIKA Administration Metoprolol Tartrate 12.5 mg 07/28/24 22:35 07/30/24 08:32 Metoprolol Tartrate 12.5 Mg Tablet PO 12.5 mg Q12HR AMBIKA Administration Morphine Sulfate 2 mg 07/27/24 20:31 Morphine Sulfate (*Crx) 2 Mg/Ml Inj IV PUSH Q2H PRN Pain Rated 7-10 Naloxone HCl 0.1 mg 07/27/24 20:31 Naloxone Hcl 0.4 Mg/Ml Vial IV PUSH Q2M PRN Opiate Reversal Ondansetron HCl 4 mg 07/27/24 20:31 Ondansetron Inj 4 Mg/2 Ml Vial IV PUSH Q12H PRN Nausea And Vomiting Perflutren Lipid Microsphere 0 ml 07/29/24 08:53 Perflutren Lipid Microspheres 1.5 Ml Vial Diluted To 10 Ml Total Volume IV PUSH 08/01/24 08:55 ONCE PRN adequate visualization Protocol Tamsulosin HCl 0.4 mg 07/27/24 23:45 07/29/24 20:11 Tamsulosin Hcl 0.4 Mg Capsule PO 0.4 mg HS AMBIKA Administration Radiology Results: ITS Impressions Chest X-Ray 07/27/24 13:29 IMPRESSION: No focal infiltrate or effusion. Abdomen/Pelvis CT 07/27/24 14:23 IMPRESSION: Bilateral hydroureteronephrosis secondary to calculi within the left-sided ureter as well as dependent within the bladder (possibly recently passed). Renal Ultrasound 07/28/24 10:34 IMPRESSION: 1. Normal kidney sizes. No hydronephrosis. Labs Labs: Laboratory Results - last 24 hr 07/29/24 07/29/24 07/30/24 16:38 20:31 07:51 WBC 5.4 RBC 3.82 L Hgb 13.0 L Hct 35.5 L MCV 92.9 MCH 34.0 MCHC 36.6 H RDW 13.2 Plt Count 126 L MPV 10.2 Immature Gran % (Auto) 0.4 Neut % (Auto) 59.3 Lymph % (Auto) 27.1 Alcorn % (Auto) 11.5 H Eos % (Auto) 1.3 Baso % (Auto) 0.4 Lymph # (Auto) 1.46 [place]corn # (Auto) 0.6 Eos # (Auto) 0.1 Baso # (Auto) 0.0 Abs Immat Gran (auto) 0.02 Absolute Neuts (auto) 3.2 Absolute Nucleated RBC 0.000 Nucleated RBC % 0.0 Sodium 135 L Potassium 3.6 Chloride 106 Carbon Dioxide 25 Anion Gap 4 BUN 25 H D Creatinine 0.95 Estim Creat Clear Calc 57 Estimated GFR > 60 Glucose 97 POC Capillary Glucose 118 H 125 H Calcium 7.6 L Total Bilirubin 0.8 AST 51 ALT 50 Alkaline Phosphatase 54 Total Protein 5.0 L Albumin 2.4 L 07/30/24 07/30/24 07:56 12:38 WBC RBC Hgb Hct MCV MCH MCHC RDW Plt Count MPV Immature Gran % (Auto) Neut % (Auto) Lymph % (Auto) [place] % (Auto) Eos % (Auto) Baso % (Auto) Lymph # (Auto) [place] # (Auto) Eos # (Auto) Baso # (Auto) Abs Immat Gran (auto) Absolute Neuts (auto) Absolute Nucleated RBC Nucleated RBC % Sodium Potassium Chloride Carbon Dioxide Anion Gap BUN Creatinine Estim Creat Clear Calc Estimated GFR Glucose POC Capillary Glucose 105 111 H Calcium Total Bilirubin AST ALT Alkaline Phosphatase Total Protein Albumin
[2024-07-30 17:06] LABS: Glucose Point of Care 131 mg/dl (65-105)
[2024-07-30] MEDS: TAMSULOSIN HCL 0.4 MG CAPSULE PO (20:06)
[2024-07-30 21:44] LABS: Glucose Point of Care 145 mg/dl (65-105)
[2024-07-31] VITALS (10 sets, daily range): BP systolic 131–156; BP diastolic 68–86; PULSE 62–89; RESP 18–19; TEMP 36.2–36.4; O2SAT 93–95
[2024-07-31] MEDS: LACTATED RINGERS 1,000 ML 75 ML IV CONT ×2 (01:56→18:35)
[2024-07-31] MEDS: ceFAZolin 2 GM/D5W 50 ML 2 GM/50 ML BAG IVPB ×3 (05:09→20:59)
[2024-07-31 06:20] LABS: Basophils Percent Auto 0.5 % (0.2-1.2); Eosinophils Absolute Auto 0.1 K/mm3 (0-0.3); Eosinophils Percent Auto 1.2 % (0-4.4); Hematocrit 36.2 % (42.0-52.0); Hemoglobin 13.1 g/dL (14.0-18.0); Immature Granulocyte Absolute 0.03 K/mm3 (0.00-0.031); Immature Granulocyte Percent A 0.5 % (0-0.5); Lymphocytes Absolute Auto 1.41 K/mm3 (0.9-3.2); Lymphocytes Percent Auto 24.5 % (18.3-44.2); Mean Corpuscular HGB Conc 36.2 g/dl (32-36); Mean Corpuscular Hemoglobin 33.9 pg (26-34); Mean Corpuscular Volume 93.8 fl (80-100); Mean Platelet Volume 10.5 fl (7.4-10.4); Monocytes Absolute Auto 0.7 K/mm3 (0.1-0.6); Monocytes Percent Auto 11.6 % (2.6-8.5); Neutrophils Absolute Auto 3.6 K/mm3 (1.3-6.7); Neutrophils Percent Auto 61.7 % (45.5-73.1); Platelet Count Result 131 k/mm3 (150-375); Red Blood Count 3.86 M/mm3 (4.6-6.20); White Blood Count 5.8 K/mm3 (4.5-10.0)
[2024-07-31 06:52] LABS: Alanine Aminotransferase 60 U/L (6-50); Albumin Level 2.5 g/dL (3.5-5.1); Alkaline Phosphatase 62 U/L (38-126); Anion Gap 5 mmol/L (4-12); Aspartate Amino Transferase 58 U/L (17-59); Bilirubin,Total 0.9 mg/dL (0.2-1.3); Blood Urea Nitrogen 17 mg/dL (9-20); Calcium 7.6 mg/dL (8.4-10.2); Carbon Dioxide 27 mmol/L (22-30); Chloride 106 mmol/L (98-107); Estimated CRCL calculation 58 ml/min; Estimated Glomerular Filt Rate > 60; Glucose 97 mg/dL (65-110); Potassium 3.5 mmol/L (3.4-5.0); Sodium 138 mmol/L (137-145)
--- NOTE | 2024-07-31 08:54 | P.PNIM_ITS ---
Progress Note: A&P Assessment and Plan (1) Sepsis: Code(s): A41.9 - Sepsis, unspecified organism Status: Acute Assessment and Plan: Meets SIRS criteria: fever, tachycardia, leukocytosis, acute kidney injury, and hyperbilirubinemia with a SOFA score of at least 4 - lactic acid: 2 > 1.2 - Recieved sepsis bolus - suspected source: UTI - blood cultures drawn on 07/27: staph simulans - repeat blood culture on 07/31: pending - Antibiotics: vancomycin started on 07/30, transitioned to ancef per culture sensitivities. Discontinue keflex - UA: turbid appearance with 2+ protein, trace ketones, 2+ blood, negative nit rates, 3+ leukocytes, 11-20 RBC, > 100 WBC, 4+ bacteria - UC obtained on 07/27: staphylococcus simulans pansensitive - CXR: No focal infiltrate or effusion. (2) Bacteremia: Code(s): R78.81 - Bacteremia Status: Acute Assessment and Plan: - blood cultures drawn on 07/27: staph simulans - repeat blood culture on 07/31: pending - Antibiotics: vancomycin started on 07/30, transitioned to ancef per culture sensitivities. Discontinue keflex - echo: LVEF 55-60%. (3) Urinary tract infection: Code(s): N39.0 - Urinary tract infection, site not specified Status: Acute Assessment and Plan: - UA: turbid apperance with 2+ protein, trace ketones, 2+ blood, negative nitrates, 3+ leukocytes, 11-20 RBC, > 100 WBC, 4+ bacteria - UC obtained on 07/27: staphylococcus simulans - no previous micro to be reviewed - Antibiotics: vancomycin started on 07/30, transitioned to ancef per culture sensitivities. Discontinue keflex (4) Afib: Code(s): I48.91 - Unspecified atrial fibrillation Status: Acute Assessment and Plan: Patient went into afib RVR into the 140s yesterday 07/28, per RN. Given metoprolol PO x1 and converted back into sinus rhythm. - Started on metoprolol 12.5 mg BID, holding lisinopril as patient has been hypotensive on metoprolol alone. - Telemetry - Cardiology consulted, appreciate recommendations Eliquis 2.5 mg BID if okay with urology Echo LVEF 55-60% (5) Left ureteral stone: Code(s): N20.1 - Calculus of ureter Status: Acute Assessment and Plan: Abdomen/pelvis CT: Bilateral hydroureteronephrosis secondary to calculi within the left-sided ureter as well as dependent within the bladder (possibly recently passed). - Renal US: Normal kidney sizes. No hydronephrosis. - Urology consulted - s/p Cystoscopy, bilateral retrograde pyelograms, bilateral ureteral stent placement 6 [place] contour, complex Gregory catheter [address] on [address] Constantino - Agree with renal ultrasound to further assess degree of bilateral hydroureteronephrosis - Hematuria resolved. OK for void trial today. - Agree with culture-directed abx for UTI. Blood and urine cultures pending. - Plan for outpatient stone treatment, stent management after his infection has cleared. - Follows with Dr. Hammond for urology management. (6) Hydroureteronephrosis: Code(s): N13.30 - Unspecified hydronephrosis Status: Acute Assessment and Plan: Abdomen/pelvis CT: Bilateral hydroureteronephrosis secondary to calculi within the left-sided ureter as well as dependent within the bladder (possibly recently passed). - Renal US: Normal kidney sizes. No hydronephrosis. - Urology consulted - s/p Cystoscopy, bilateral retrograde pyelograms, bilateral ureteral stent placement 6 [place] contour, complex Gregory catheter [address] on 07/[address] Constantino - Agree with renal ultrasound to further assess degree of bilateral hydroureteronephrosis - Agree with culture-directed abx for UTI. Blood and urine cultures pending. - Plan for outpatient stone treatment, stent management after his infection has cleared. - Follows with Dr. Hammond for urology management. (7) Acute kidney injury: Code(s): N17.9 - Acute kidney failure, unspecified Status: Acute Assessment and Plan: BUN and creatinine of 49 and 2.82 respectively on admission. Due to hydrouretero nephrosis from stones and also likely some component related to sepsis. - BUN/Cr 17/0.83 on am labs - He was judiciously hydrated with close monitoring of volume status, renal function, and electrolytes. - Renal US: Normal kidney sizes. No hydronephrosis. - All medications will be renally dosed and nephrotoxic agents will be avoided. Resolved. (8) Transaminitis: Code(s): R74.01 - Elevation of levels of liver transaminase levels Status: Acute Assessment and Plan: AST and ALT are a bit elevated however total bilirubin is 5.8. No findings noted on CT scan to correlate. Continue to monitor for now Hepatitis panel negative Total CK 708 Fractionate bilirubin (9) Hypertension: Code(s): I10 - Essential (primary) hypertension Status: Acute Assessment and Plan: Chronic, currently borderline hypotensive - Holding lisinopril 20 mg daily as patient has been started on metoprolol 12.5 mg BID for afib - Blood pressures remain stable, continue to monitor Time Spent With Patient Time with patient: 25 - 35 minutes Subjective Date/time seen: 07/31/24 08:54 Interval history: 88-year-old male with history of dementia, stroke, hypertension, and benign prostatic hyperplasia who presented to the hospital via EMS from home for evaluation of abdominal pain, weakness, and fever. Patient is pleasant lying comfortably in bed. He has no complaints denying chest pain, shortness a breath, palpitations, nausea/ vomiting, abdominal pain. He underwent a voiding trial today which was successful. Possible hematuria as there was blood noted on his bed sheets. He is unsure if there is blood in his urine. If no other findings of hematuria may start eliquis tomorrow. Patient continues to work with PT/OT who recommend placement. Care coordination following. Review of Systems Review of Systems: All systems reviewed & are unremarkable except as noted in HPI and below Exam Narrative: AF HR 71 RR 18 Spo2 95 BP 131/68 General: male in no acute respiratory distress who is nontoxic appearing, lying semi recumbent in bed. HEENT: Normocephalic. Atraumatic. No facial asymmetry. Blind in left eye. Chest: Lungs are clear to auscultation bilaterally. No wheezes or crackles. CV: Heart was regular rate and rhythm. S1/S2. No murmurs, gallops, or rubs. : Slight hematuria. Gregory removed. Abd: Abdomen was soft. Nontender. Nondistended. Positive bowel sounds. Ext: No clubbing, cyanosis, or edema. 2+ DP pulses bilaterally. Neuro: Patient is alert and oriented x3. Speech is clear. Objective Data Vital Signs Vital Signs: Vital Signs - 24 hr 07/30/24 12:00 07/30/24 14:00 07/30/24 16:00 Temperature 97.2 F L Pulse Rate 72 67 82 Respiratory Rate 18 Blood Pressure 120/68 Pulse Oximetry 97 Oxygen Delivery 07/30/24 20:00 07/30/24 20:00 07/30/24 20:06 Temperature Pulse Rate 84 70 Respiratory Rate Blood Pressure Pulse Oximetry Oxygen Delivery Room Air 07/30/24 21:36 07/31/24 00:00 07/31/24 04:00 Temperature 97.6 F Pulse Rate 71 77 78 Respiratory Rate 16 Blood Pressure 134/86 Pulse Oximetry 95 Oxygen Delivery 07/31/24 04:10 Temperature 97.6 F Pulse Rate 71 Respiratory Rate 18 Blood Pressure 131/68 Pulse Oximetry 95 Oxygen Delivery Intake/Output Intake/Output: Intake & Output 07/28/24 07/29/24 07/30/24 07/31/24 23:59 23:59 23:59 23:59 Intake Total 2870 2963.7 3550 1616.3 Output Total 2850 1200 2050 2200 Balance 20 1763.7 1500 -583.7 Meds/Results Medications: Active Medications Generic Name Dose Route Start Last Admin Trade Name Freq PRN Reason Stop Dose Admin Acetaminophen 650 mg 07/28/24 00:20 07/28/24 17:19 Acetaminophen 325 Mg Tablet PO 650 mg Q6H PRN Administration Mild Pain (1-3) or Fever Hydrocodone Bitart/Acetaminophen 1 tab 07/27/24 20:31 Hydrocodone/Acetaminophen (*Crx) 5-325 Mg Tablet PO Q4H PRN Pain Rated 1-6 Docusate Sodium 100 mg 07/28/24 09:00 07/30/24 18:25 Docusate Sodium 100 Mg Capsule PO 100 mg BID AMBIKA Administration Finasteride 5 mg 07/28/24 09:00 07/30/24 08:32 Finasteride 5 Mg Tablet PO 5 mg DAILY AMBIKA Administration Hyoscyamine 0.125 mg 07/27/24 20:31 07/29/24 03:09 Hyoscyamine Sulfate 0.125 Mg Tablet SUBLINGUAL 0.125 mg Q6H PRN Administration Bladder Spasm Lactated Ringer's 1,000 mls @ 75 mls/hr 07/28/24 20:10 07/31/24 01:56 Lr - Lactated Ringers Iv IV CONT 75 mls/hr .[id number] AMBIKA Administration Cefazolin Sodium 2 gm in 50 mls @ 100 mls/hr 07/30/24 13:00 07/31/24 05:39 Ancef 2 Gm/D5w 50 Ml IVPB Infused Q8HR AMBIKA Infusion Metoprolol Tartrate 12.5 mg 07/28/24 22:35 07/30/24 20:06 Metoprolol Tartrate 12.5 Mg Tablet PO 12.5 mg Q12HR AMBIKA Administration Morphine Sulfate 2 mg 07/27/24 20:31 Morphine Sulfate (*Crx) 2 Mg/Ml Inj IV PUSH Q2H PRN Pain Rated 7-10 Naloxone HCl 0.1 mg 07/27/24 20:31 Naloxone Hcl 0.4 Mg/Ml Vial IV PUSH Q2M PRN Opiate Reversal Ondansetron HCl 4 mg 07/27/24 20:31 Ondansetron Inj 4 Mg/2 Ml Vial IV PUSH Q12H PRN Nausea And Vomiting Perflutren Lipid Microsphere 0 ml 07/29/24 08:53 Perflutren Lipid Microspheres 1.5 Ml Vial Diluted To 10 Ml Total Volume IV PUSH 08/01/24 08:55 ONCE PRN adequate visualization Protocol Tamsulosin HCl 0.4 mg 07/27/24 23:45 07/30/24 20:06 Tamsulosin Hcl 0.4 Mg Capsule PO 0.4 mg HS AMBIKA Administration Radiology Results: ITS Impressions Chest X-Ray 07/27/24 13:29 IMPRESSION: No focal infiltrate or effusion. Abdomen/Pelvis CT 07/27/24 14:23 IMPRESSION: Bilateral hydroureteronephrosis secondary to calculi within the left-sided ureter as well as dependent within the bladder (possibly recently passed). Renal Ultrasound 07/28/24 10:34 IMPRESSION: 1. Normal kidney sizes. No hydronephrosis. Labs Labs: Laboratory Results - last 24 hr 07/30/24 07/30/24 07/30/24 12:38 16:58 21:39 WBC RBC Hgb Hct MCV MCH MCHC RDW Plt Count MPV Immature Gran % (Auto) Neut % (Auto) Lymph % (Auto) [place] % (Auto) Eos % (Auto) Baso % (Auto) Lymph # (Auto) [place] # (Auto) Eos # (Auto) Baso # (Auto) Abs Immat Gran (auto) Absolute Neuts (auto) Absolute Nucleated RBC Nucleated RBC % Sodium Potassium Chloride Carbon Dioxide Anion Gap BUN Creatinine Estim Creat Clear Calc Estimated GFR Glucose POC Capillary Glucose 111 H 131 H 145 H Calcium Total Bilirubin AST ALT Alkaline Phosphatase Total Protein Albumin 07/31/24 05:44 WBC 5.8 RBC 3.86 L Hgb 13.1 L Hct 36.2 L MCV 93.8 MCH 33.9 MCHC 36.2 H RDW 13.0 Plt Count 131 L MPV 10.5 H Immature Gran % (Auto) 0.5 Neut % (Auto) 61.7 Lymph % (Auto) 24.5 [place] % (Auto) 11.6 H Eos % (Auto) 1.2 Baso % (Auto) 0.5 Lymph # (Auto) 1.41 [place] # (Auto) 0.7 H Eos # (Auto) 0.1 Baso # (Auto) 0.0 Abs Immat Gran (auto) 0.03 Absolute Neuts (auto) 3.6 Absolute Nucleated RBC 0.000 Nucleated RBC % 0.0 Sodium 138 Potassium 3.5 Chloride 106 Carbon Dioxide 27 Anion Gap 5 BUN 17 Creatinine 0.83 Estim Creat Clear Calc 58 Estimated GFR > 60 Glucose 97 POC Capillary Glucose Calcium 7.6 L Total Bilirubin 0.9 AST 58 ALT 60 H Alkaline Phosphatase 62 Total Protein 5.0 L Albumin 2.5 L Quality VTE Prophylaxis VTE prophylaxis: mechanical ordered
[2024-07-31] MEDS: FINASTERIDE 5 MG TABLET PO (09:45)
[2024-07-31] MEDS: DOCUSATE SODIUM 100 MG CAPSULE PO ×2 (09:45→18:35)
[2024-07-31] MEDS: METOPROLOL TARTRATE 12.5 MG TABLET PO ×2 (09:45→20:59)
[2024-07-31] MEDS: TAMSULOSIN HCL 0.4 MG CAPSULE PO (20:59)
[2024-08-01] VITALS (11 sets, daily range): BP systolic 134–149; BP diastolic 71–89; PULSE 65–85; RESP 16–24; TEMP 36.4–37.1; O2SAT 95–96
[2024-08-01 05:57] LABS: Basophils Percent Auto 0.4 % (0.2-1.2); Eosinophils Absolute Auto 0.1 K/mm3 (0-0.3); Eosinophils Percent Auto 1.6 % (0-4.4); Hematocrit 36.5 % (42.0-52.0); Hemoglobin 13.4 g/dL (14.0-18.0); Immature Granulocyte Absolute 0.09 K/mm3 (0.00-0.031); Immature Granulocyte Percent A 1.3 % (0-0.5); Lymphocytes Absolute Auto 1.51 K/mm3 (0.9-3.2); Lymphocytes Percent Auto 22.2 % (18.3-44.2); Mean Corpuscular HGB Conc 36.7 g/dl (32-36); Mean Corpuscular Hemoglobin 33.9 pg (26-34); Mean Corpuscular Volume 92.4 fl (80-100); Mean Platelet Volume 10.4 fl (7.4-10.4); Monocytes Absolute Auto 0.8 K/mm3 (0.1-0.6); Monocytes Percent Auto 11.5 % (2.6-8.5); Neutrophils Absolute Auto 4.3 K/mm3 (1.3-6.7); Platelet Count Result 155 k/mm3 (150-375); Red Blood Count 3.95 M/mm3 (4.6-6.20); Red Cell Distribution Width 12.9 % (11.5-14.5); White Blood Count 6.8 K/mm3 (4.5-10.0)
[2024-08-01 06:07] LABS: Alanine Aminotransferase 56 U/L (6-50); Albumin Level 2.7 g/dL (3.5-5.1); Alkaline Phosphatase 69 U/L (38-126); Anion Gap 7 mmol/L (4-12); Aspartate Amino Transferase 57 U/L (17-59); Bilirubin,Total 1.3 mg/dL (0.2-1.3); Blood Urea Nitrogen 13 mg/dL (9-20); Calcium 7.7 mg/dL (8.4-10.2); Carbon Dioxide 25 mmol/L (22-30); Chloride 106 mmol/L (98-107); Estimated CRCL calculation 62 ml/min; Estimated Glomerular Filt Rate > 60; Glucose 106 mg/dL (65-110); Potassium 3.3 mmol/L (3.4-5.0); Sodium 138 mmol/L (137-145)
[2024-08-01] MEDS: LACTATED RINGERS 1,000 ML 75 ML IV CONT ×2 (06:17→20:59)
[2024-08-01] MEDS: ceFAZolin 2 GM/D5W 50 ML 2 GM/50 ML BAG IVPB ×3 (06:17→21:01)
--- NOTE | 2024-08-01 08:41 | PM.IMPN ---
Progress Note: A&P Assessment and Plan (1) Sepsis: Code(s): A41.9 - Sepsis, unspecified organism Status: Acute Assessment and Plan: Meets SIRS criteria: fever, tachycardia, leukocytosis, acute kidney injury, and hyperbilirubinemia with a SOFA score of at least 4 - lactic acid: 2 > 1.2 - Recieved sepsis bolus - suspected source: UTI - blood cultures drawn on 07/27: staph simulans - repeat blood culture on 07/31: pending - Antibiotics: vancomycin started on 07/30, transitioned to ancef per culture sensitivities. Discontinue keflex - UA: turbid appearance with 2+ protein, trace ketones, 2+ blood, negative nitrates, 3+ leukocytes, 11-20 RBC, > 100 WBC, 4+ bacteria - UC obtained on 07/27: staphylococcus simulans pansensitive - CXR: No focal infiltrate or effusion. 08/01: Vitals remain stable. Leukocytosis and TAVIA have resolved. Repeat blood cultures still pending. (2) Bacteremia: Code(s): R78.81 - Bacteremia Status: Acute Assessment and Plan: - blood cultures drawn on 07/27: staph simulans - repeat blood culture on 07/31: pending - Antibiotics: vancomycin started on 07/30, transitioned to ancef per culture sensitivities. Discontinue keflex - echo: LVEF 55-60%. (3) Urinary tract infection: Code(s): N39.0 - Urinary tract infection, site not specified Status: Acute Assessment and Plan: - UA: turbid apperance with 2+ protein, trace ketones, 2+ blood, negative nitrates, 3+ leukocytes, 11-20 RBC, > 100 WBC, 4+ bacteria - UC obtained on 07/27: staphylococcus simulans - no previous micro to be reviewed - Antibiotics: vancomycin started on 07/30, transitioned to ancef per culture sensitivities. Discontinue keflex (4) Afib: Code(s): I48.91 - Unspecified atrial fibrillation Status: Acute Assessment and Plan: Patient went into afib RVR into the 140s yesterday 07/28, per RN. Given metoprolol PO x1 and converted back into sinus rhythm. - Started on metoprolol 12.5 mg BID, holding lisinopril as patient has been hypotensive on metoprolol alone. - Started on eliquis 2.5 mg BID - Telemetry - Cardiology consulted, appreciate recommendations Eliquis 2.5 mg BID if okay with urology Echo LVEF 55-60% Spoke with Dr. Constantino and patient is okay to start eliquis at this time. He will need to stop this medication a few days prior to his outpatient urology appointment for the procedure. This timeframe will be discussed with patient per urology. (5) Left ureteral stone: Code(s): N20.1 - Calculus of ureter Status: Acute Assessment and Plan: Abdomen/pelvis CT: Bilateral hydroureteronephrosis secondary to calculi within the left-sided ureter as well as dependent within the bladder (possibly recently passed). - Renal US: Normal kidney sizes. No hydronephrosis. - Urology consulted - s/p Cystoscopy, bilateral retrograde pyelograms, bilateral ureteral stent placement 6 [place] contour, complex [place] catheter [address] on [address] Constantino - Agree with renal ultrasound to further assess degree of bilateral hydroureteronephrosis - Hematuria resolved. OK for void trial today. - Agree with culture-directed abx for UTI. Blood and urine cultures pending. - Plan for outpatient stone treatment, stent management after his infection has cleared. - Follows with Dr. Hammond for urology management. (6) Hydroureteronephrosis: Code(s): N13.30 - Unspecified hydronephrosis Status: Acute Assessment and Plan: Abdomen/pelvis CT: Bilateral hydroureteronephrosis secondary to calculi within the left-sided ureter as well as dependent within the bladder (possibly recently passed). - Renal US: Normal kidney sizes. No hydronephrosis. - Urology consulted - s/p Cystoscopy, bilateral retrograde pyelograms, bilateral ureteral stent placement 6 [place] contour, complex [place] catheter [address] on [address] Constantino - Agree with renal ultrasound to further assess degree of bilateral hydroureteronephrosis - Agree with culture-directed abx for UTI. Blood and urine cultures pending. - Plan for outpatient stone treatment, stent management after his infection has cleared. - Follows with Dr. Hammond for urology management. (7) Acute kidney injury: Code(s): N17.9 - Acute kidney failure, unspecified Status: Acute Assessment and Plan: BUN and creatinine of 49 and 2.82 respectively on admission. Due to hydroureteronephrosis from stones and also likely some component related to sepsis. - BUN/Cr 13/0.77 on am labs - He was judiciously hydrated with close monitoring of volume status, renal function, and electrolytes. - Renal US: Normal kidney sizes. No hydronephrosis. - All medications will be renally dosed and nephrotoxic agents will be avoided. Resolved. (8) Transaminitis: Code(s): R74.01 - Elevation of levels of liver transaminase levels Status: Acute Assessment and Plan: AST and ALT are a bit elevated however total bilirubin is 5.8. No findings noted on CT scan to correlate. Continue to monitor for now Hepatitis panel negative Total CK 708 Fractionate bilirubin Resolved. (9) Hypertension: Code(s): I10 - Essential (primary) hypertension Status: Acute Assessment and Plan: Chronic, currently borderline hypotensive - Holding lisinopril 20 mg daily as patient has been started on metoprolol 12.5 mg BID for afib - Blood pressures remain stable, continue to monitor Time Spent With Patient Time with patient: 25 - 35 minutes Subjective Date/time seen: 08/01/24 08:41 Interval history: 88-year-old male with history of dementia, stroke, hypertension, and benign prostatic hyperplasia who presented to the hospital via EMS from home for evaluation of abdominal pain, weakness, and fever. Patient is pleasant lying comfortably in bed with family at bedside. Attempted a voiding trial however patient developed retention and norton was replaced. No hematuria present. Spoke with Dr. Constantino and patient is okay to start eliquis at this time. He will need to stop this medication a few days prior to his outpatient urology appointment for the procedure. This timeframe will be discussed with patient per urology. Patient has no complaints denying chest pain, shortness of breath, palpitations, nausea/vomiting and abdominal pain. Review of Systems Review of Systems: All systems reviewed & are unremarkable except as noted in HPI and below Exam Narrative: AF HR 85 RR 22 SpO2 96 BP 139/81 General: male in no acute respiratory distress who is nontoxic appearing, lying semi recumbent in bed. HEENT: Normocephalic. Atraumatic. No facial asymmetry. Blind in left eye. Chest: Lungs are clear to auscultation bilaterally. No wheezes or crackles. CV: Heart was regular rate and rhythm. S1/S2. No murmurs, gallops, or rubs. : No hematuria. Norton in place. Abd: Abdomen was soft. Nontender. Nondistended. Positive bowel sounds. Ext: No clubbing, cyanosis, or edema. 2+ DP pulses bilaterally. Neuro: Patient is alert and oriented x3. Speech is clear. Objective Data Vital Signs Vital Signs: Vital Signs - 24 hr 07/31/24 09:45 07/31/24 09:45 07/31/24 12:00 Temperature Pulse Rate 88 62 Respiratory Rate Blood Pressure Pulse Oximetry Oxygen Delivery Room Air 07/31/24 14:00 07/31/24 16:00 07/31/24 20:00 Temperature 97.2 F L Pulse Rate 78 68 Respiratory Rate 19 Blood Pressure 144/76 H Pulse Oximetry 95 Oxygen Delivery Room Air 07/31/24 20:00 07/31/24 20:48 08/01/24 00:00 Temperature 97.6 F Pulse Rate 78 89 67 Respiratory Rate 18 Blood Pressure 156/86 H Pulse Oximetry 93 Oxygen Delivery 08/01/24 04:00 08/01/24 04:51 Temperature 98.2 F Pulse Rate 65 80 Respiratory Rate 16 Blood Pressure 138/71 Pulse Oximetry 95 Oxygen Delivery Intake/Output Intake/Output: Intake & Output 07/29/24 07/30/24 07/31/24 08/01/24 23:59 23:59 23:59 23:59 Intake Total 2963.7 3550 3196.3 1277.5 Output Total 1200 2050 3575 1500 Balance 1763.7 1500 -378.7 -222.5 Meds/Results Medications: Active Medications Generic Name Dose Route Start Last Admin Trade Name Freq PRN Reason Stop Dose Admin Acetaminophen 650 mg 07/28/24 00:20 07/28/24 17:19 Acetaminophen 325 Mg Tablet PO 650 mg Q6H PRN Administration Mild Pain (1-3) or Fever Hydrocodone Bitart/Acetaminophen 1 tab 07/27/24 20:31 Hydrocodone/Acetaminophen (*Crx) 5-325 Mg Tablet PO Q4H PRN Pain Rated 1-6 Docusate Sodium 100 mg 07/28/24 09:00 07/31/24 18:35 Docusate Sodium 100 Mg Capsule PO 100 mg BID AMBIKA Administration Finasteride 5 mg 07/28/24 09:00 07/31/24 09:45 Finasteride 5 Mg Tablet PO 5 mg DAILY AMBIKA Administration Hyoscyamine 0.125 mg 07/27/24 20:31 07/29/24 03:09 Hyoscyamine Sulfate 0.125 Mg Tablet SUBLINGUAL 0.125 mg Q6H PRN Administration Bladder Spasm Lactated Ringer's 1,000 mls @ 75 mls/hr 07/28/24 20:10 08/01/24 06:17 Lr - Lactated Ringers Iv IV CONT 75 mls/hr .[id number] AMBIKA Administration Cefazolin Sodium 2 gm in 50 mls @ 100 mls/hr 07/30/24 13:00 08/01/24 06:17 Ancef 2 Gm/D5w 50 Ml IVPB 100 mls/hr Q8HR AMBIKA Administration Metoprolol Tartrate 12.5 mg 07/28/24 22:35 07/31/24 20:59 Metoprolol Tartrate 12.5 Mg Tablet PO 12.5 mg Q12HR AMBIKA Administration Morphine Sulfate 2 mg 07/27/24 20:31 Morphine Sulfate (*Crx) 2 Mg/Ml Inj IV PUSH Q2H PRN Pain Rated 7-10 Naloxone HCl 0.1 mg 07/27/24 20:31 Naloxone Hcl 0.4 Mg/Ml Vial IV PUSH Q2M PRN Opiate Reversal Ondansetron HCl 4 mg 07/27/24 20:31 Ondansetron Inj 4 Mg/2 Ml Vial IV PUSH Q12H PRN Nausea And Vomiting Perflutren Lipid Microsphere 0 ml 07/29/24 08:53 Perflutren Lipid Microspheres 1.5 Ml Vial Diluted To 10 Ml Total Volume IV PUSH 08/01/24 08:55 ONCE PRN adequate visualization Protocol Potassium Chloride 40 meq 08/01/24 08:40 Potassium Chloride 20 Meq Er Tablet PO 08/01/24 08:41 ONCE ONE Tamsulosin HCl 0.4 mg 07/27/24 23:45 07/31/24 20:59 Tamsulosin Hcl 0.4 Mg Capsule PO 0.4 mg HS AMBIKA Administration Radiology Results: ITS Impressions Chest X-Ray 07/27/24 13:29 IMPRESSION: No focal infiltrate or effusion. Abdomen/Pelvis CT 07/27/24 14:23 IMPRESSION: Bilateral hydroureteronephrosis secondary to calculi within the left-sided ureter as well as dependent within the bladder (possibly recently passed). Renal Ultrasound 07/28/24 10:34 IMPRESSION: 1. Normal kidney sizes. No hydronephrosis. Labs Labs: Laboratory Results - last 24 hr 08/01/24 05:39 WBC 6.8 RBC 3.95 L Hgb 13.4 L Hct 36.5 L MCV 92.4 MCH 33.9 MCHC 36.7 H RDW 12.9 Plt Count 155 MPV 10.4 Immature Gran % (Auto) 1.3 H Neut % (Auto) 63.0 Lymph % (Auto) 22.2 [place] % (Auto) 11.5 H Eos % (Auto) 1.6 Baso % (Auto) 0.4 Lymph # (Auto) 1.51 [place] # (Auto) 0.8 H Eos # (Auto) 0.1 Baso # (Auto) 0.0 Abs Immat Gran (auto) 0.09 H Absolute Neuts (auto) 4.3 Absolute Nucleated RBC 0.000 Nucleated RBC % 0.0 Sodium 138 Potassium 3.3 L Chloride 106 Carbon Dioxide 25 Anion Gap 7 BUN 13 Creatinine 0.77 Estim Creat Clear Calc 62 Estimated GFR > 60 Glucose 106 Calcium 7.7 L Total Bilirubin 1.3 AST 57 ALT 56 H Alkaline Phosphatase 69 Total Protein 6.0 L Albumin 2.7 L Quality VTE Prophylaxis VTE prophylaxis: mechanical ordered and pharmacologic ordered
[2024-08-01] MEDS: POTASSIUM CHLORIDE 20 MEQ ER TABLET 40 MEQ PO (09:36)
[2024-08-01] MEDS: APIXABAN 2.5 MG TABLET PO ×2 (09:36→21:01)
[2024-08-01] MEDS: FINASTERIDE 5 MG TABLET PO (09:37)
[2024-08-01] MEDS: METOPROLOL TARTRATE 12.5 MG TABLET PO ×2 (09:37→21:01)
[2024-08-01] MEDS: SENNA/DOCUSATE SODIUM TABLET 1 TAB PO ×2 (09:51→21:01)
[2024-08-01] MEDS: TAMSULOSIN HCL 0.4 MG CAPSULE PO (21:01)
[2024-08-02] VITALS: BP 150/90; PULSE 75; PULSE 79; RESP 18; TEMP 36.9; O2SAT 96
[2024-08-02 04:00] VITALS: BP 137/88; PULSE 72; PULSE 80; RESP 18; TEMP 36.3; O2SAT 96
[2024-08-02 05:39] LABS: Basophils Absolute Auto 0.1 K/mm3 (0.0-0.1); Basophils Percent Auto 0.6 % (0.2-1.2); Eosinophils Absolute Auto 0.2 K/mm3 (0-0.3); Eosinophils Percent Auto 2.3 % (0-4.4); Hematocrit 36.9 % (42.0-52.0); Hemoglobin 13.5 g/dL (14.0-18.0); Immature Granulocyte Absolute 0.17 K/mm3 (0.00-0.031); Immature Granulocyte Percent A 2.2 % (0-0.5); Lymphocytes Absolute Auto 1.98 K/mm3 (0.9-3.2); Lymphocytes Percent Auto 25.5 % (18.3-44.2); Mean Corpuscular HGB Conc 36.6 g/dl (32-36); Mean Corpuscular Hemoglobin 34.1 pg (26-34); Mean Corpuscular Volume 93.2 fl (80-100); Mean Platelet Volume 10.6 fl (7.4-10.4); Monocytes Absolute Auto 0.9 K/mm3 (0.1-0.6); Monocytes Percent Auto 11.1 % (2.6-8.5); Neutrophils Absolute Auto 4.5 K/mm3 (1.3-6.7); Neutrophils Percent Auto 58.3 % (45.5-73.1); Platelet Count Result 186 k/mm3 (150-375); Red Blood Count 3.96 M/mm3 (4.6-6.20); Red Cell Distribution Width 12.7 % (11.5-14.5); White Blood Count 7.8 K/mm3 (4.5-10.0)
[2024-08-02 05:50] LABS: Alanine Aminotransferase 38 U/L (6-50); Albumin Level 2.7 g/dL (3.5-5.1); Alkaline Phosphatase 73 U/L (38-126); Anion Gap 6 mmol/L (4-12); Aspartate Amino Transferase 38 U/L (17-59); Bilirubin,Total 1.2 mg/dL (0.2-1.3); Blood Urea Nitrogen 12 mg/dL (9-20); Calcium 7.8 mg/dL (8.4-10.2); Carbon Dioxide 23 mmol/L (22-30); Chloride 107 mmol/L (98-107); Estimated CRCL calculation 66 ml/min; Estimated Glomerular Filt Rate > 60; Glucose 102 mg/dL (65-110); Potassium 3.8 mmol/L (3.4-5.0); Sodium 136 mmol/L (137-145)
[2024-08-02 06:35] LABS: Atypical Lymphocytes Present; Platelet Estimate Adequate (Adequate); Schistocytes None Seen
[2024-08-02] MEDS: ceFAZolin 2 GM/D5W 50 ML 2 GM/50 ML BAG IVPB (06:42)
[2024-08-02 08:00] VITALS: PULSE 95
[2024-08-02] MEDS: LACTATED RINGERS 1,000 ML 75 ML IV CONT (09:10)
[2024-08-02 09:11] VITALS: PULSE 88
[2024-08-02] MEDS: METOPROLOL TARTRATE 12.5 MG TABLET PO (09:11)
[2024-08-02] MEDS: APIXABAN 2.5 MG TABLET PO (09:11)
[2024-08-02] MEDS: FINASTERIDE 5 MG TABLET PO (09:11)
[2024-08-02 09:20] VITALS: BP 136/76; PULSE 87; RESP 16; TEMP 36.8; O2SAT 96
--- NOTE | 2024-08-02 12:16 | P.DS_ITS ---
DS: Admitting Diagnosis Discharge Date 08/02/2024 Admitting Diagnosis sepsis bacteremia UTI Afib Left ureteral stone Hydroureteronephrosis TAVIA Transaminitis Hypertension DS: Discharge Diagnosis Discharge Diagnosis (1) Sepsis: Code(s): A41.9 - Sepsis, unspecified organism Status: Acute (2) Bacteremia: Code(s): R78.81 - Bacteremia Status: Acute (3) Urinary tract infection: Code(s): N39.0 - Urinary tract infection, site not specified Status: Acute (4) Afib: Code(s): I48.91 - Unspecified atrial fibrillation Status: Acute (5) Left ureteral stone: Code(s): N20.1 - Calculus of ureter Status: Acute (6) Hydroureteronephrosis: Code(s): N13.30 - Unspecified hydronephrosis Status: Acute (7) Acute kidney injury: Code(s): N17.9 - Acute kidney failure, unspecified Status: Acute (8) Transaminitis: Code(s): R74.01 - Elevation of levels of liver transaminase levels Status: Acute (9) Hypertension: Code(s): I10 - Essential (primary) hypertension Status: Acute DS: Summary Hospital Course Reason for hospitalization: sepsis bacteremia UTI Afib Left ureteral stone Hydroureteronephrosis TAVIA Transaminitis Hypertension Hospital Course: 88-year-old male with history of dementia, stroke, hypertension, and benign prostatic hyperplasia who presented to the hospital via EMS from home for evaluation of abdominal pain, weakness, and fever. Patient was meeting sepsis criteria on admission with fever, tachycardia, leukocytosis, acute kidney injury, and hyperbilirubinemia with a SOFA score of at least 4. Received a sepsis bolus in the ED. Suspected source was a UTI and patient was started on antibiotics. Blood and urine cultures grew staph simulans. Echo showed LVEF 55- 60% with no reported endocarditis. Repeat cultures showed NGTD. Patient transitioned to oral antibiotics at time of discharge to complete the course. Abdomen/pelvis CT showed bilateral hydroureteronephrosis secondary to calculi within the left-sided ureter as well as dependent within the bladder (possibly recently passed). Urology consulted. Patient underwent cystoscopy, bilateral retrograde pyelograms, bilateral ureteral stent placement 6 [place] contour, complex Norton catheter [address] on 07/[address] Katsikas. Patient remained on CBI until hematuria resolved. Attempted a voiding trial however patient developed retention and norton was replaced. Renal US showed normal kidney sizes and no hydronephrosis. SNF will perform a voiding trial at their facility. During his admission patient went into afib RVR into the 140s. He was given metoprolol PO x1 and converted back into sinus rhythm which he remained in the rest of admission. Cardiology evaluated patient and he was started on metoprolol at that time. Lisinopril discontinued as blood pressures remained stable on the metoprolol. After patients hematuria resolved, spoke with Dr. Constantino and patient was okay to start eliquis at this time. He will need to stop this medication a few days prior to his outpatient urology appointment for the procedure. This timeframe will be discussed with patient per urology. At time of discharge patient has no complaints denying chest pain, shortness a breath, palpitations, nausea/vomiting, abdominal pain. Patient discharged to SNF in a stable condition. He is to complete his antibiotics as prescribed and follow-up with his primary care 1 week. He has follow-up with Urology and Cardiology as scheduled. Status at Discharge Functional status at discharge: uses cane/walker Time Spent with Patient Time attestation: Total time spent providing and/or coordinating discharge services: Time spent: Greater than 30 minutes Exam Narrative: AF HR General: male in no acute respiratory distress who is nontoxic appearing, lying semi recumbent in bed. HEENT: Normocephalic. Atraumatic. No facial asymmetry. Blind in left eye. Chest: Lungs are clear to auscultation bilaterally. No wheezes or crackles. CV: Heart was regular rate and rhythm. S1/S2. No murmurs, gallops, or rubs. : No hematuria. Norton in place. Abd: Abdomen was soft. Nontender. Nondistended. Positive bowel sounds. Ext: No clubbing, cyanosis, or edema. 2+ DP pulses bilaterally. Neuro: Patient is alert and oriented x3. Speech is clear. DS: Data Data Completed and Pending Completed studies during hospitalization: chest XR abdomen/pelvis CT Retrograde pyelogram Renal US Labs on day of discharge: Labs from last 24 hours 08/02/24 05:22 WBC 7.8 RBC 3.96 L Hgb 13.5 L Hct 36.9 L MCV 93.2 MCH 34.1 H MCHC 36.6 H RDW 12.7 Plt Count 186 MPV 10.6 H Immature Gran % (Auto) 2.2 H Neut % (Auto) 58.3 Lymph % (Auto) 25.5 [place] % (Auto) 11.1 H Eos % (Auto) 2.3 Baso % (Auto) 0.6 Lymph # (Auto) 1.98 [place] # (Auto) 0.9 H Eos # (Auto) 0.2 Baso # (Auto) 0.1 Abs Immat Gran (auto) 0.17 H Absolute Neuts (auto) 4.5 Absolute Nucleated RBC 0.000 Nucleated RBC % 0.0 Atypical Lymphocytes Present Platelet Estimate Adequate Schistocytes None seen Sodium 136 L Potassium 3.8 Chloride 107 Carbon Dioxide 23 Anion Gap 6 BUN 12 Creatinine 0.82 Estim Creat Clear Calc 66 Estimated GFR > 60 Glucose 102 Calcium 7.8 L Total Bilirubin 1.2 AST 38 ALT 38 Alkaline Phosphatase 73 Total Protein 6.0 L Albumin 2.7 L Preliminary micro results at discharge 07/31/24 10:01 Blood Culture - Preliminary Blood 07/31/24 09:32 Blood Culture - Preliminary Blood Discharge Plan Discharge Attending physician on discharge: Sri James Consulting providers: Edwin Rutherford; Gautam Thompson Discharging Clinician: Jane Guerrero Anticipated Discharge Date/Time: 08/02/24 11:59 Patient Disposition: SNF Activity: as tolerated Diet: as tolerated and heart healthy Discharge Instructions: Discharge disposition: Patient admitted to the hospital for a urinary tract infection, hydroureteronephrosis and kidney stones He was diagnosed with a blood infection secondary to the urinary tract infection which resolved during inpatient stay He underwent a cystoscopy, bilateral retrograde pyelograms, and bilateral ureteral stent placement on 07/[address] Constantino Take all medications as prescribed even if feeling better Bactrim twice a day, course to be completed on 08/11 Attached is information on this medication Eat well balanced meals and stay hydrated Keep active to remain strong Avoid use of diapers or pads Good crescencio Care every 2 hours Trend urine output Attempt a voiding trial at [place] Follow up with urology in the outpatient setting, call for an appointment Patient diagnosed with atrial fibrillation during admission Evaluated by cardiology Started on metoprolol 12.5 mg twice a day and eliquis 2.5 mg twice a day Attached is information on these medications Strict bleeding precautions since you are being started on eliquis including shaving with an electric razor, holding pressure for greater than 20 minutes for injury, protection of had with any falls, etc. Follow up with cardiology, call for an appointment Discuss with urology when you will need to hold this medication prior to your next urological procedure Monitor blood pressures Stop taking lisinopril 20 mg daily as you have been started on metoprolol 12.5 mg twice a day Take caution while standing, rising, or moving Change positions slowly taking a break between each position change If you standing feel dizzy sit back down and take a break Encouraged to continue with yearly vaccinations Return to the emergency department if he developed sudden shortness of breath, chest pain, nausea, vomiting, upset stomach or intractable diarrhea Return to the emergency department if you develop fever greater than 101.5 Follow-up with the primary care physician within 1-2 weeks Thank you for choosing [facility] for your healthcare needs Patient Instructions: Sulfamethoxazole/Trimethoprim (By mouth), Metoprolol (By mouth), Apixaban (By mouth), Kidney Stones (DC), Urinary Tract Infection in Men (DC), Blood Thinners (DC), Urinary Tract Infection in Older Adults (DC), Cystoscopy (DC) Patient Language: Estonian Stand Alone Forms: General Discharge Information Follow-up/Referrals: Gautam Thompson DO [Physician] - Call for Appointment Usman Constantino MD [Physician] - Call for Appointment Mihir Grant MD [Primary Care Provider] - 1 Week Discharge Medications: New Eliquis 2.5 mg Tablet 2.5 mg PO Q12HR Qty: 60 0RF metoprolol tartrate 25 mg tablet 12.5 mg PO BID Qty: 60 0RF sulfamethoxazole-trimethoprim [Bactrim DS] 800-160 mg tablet 1 tablet PO Q12H 9 Days Qty: 18 0RF Continued finasteride 5 mg tablet 5 mg PO DAILY tamsulosin 0.4 mg capsule 0.4 mg PO Q24H Discontinued lisinopril 20 mg tablet 20 mg PO DAILY Date of admission: 07/27/24 16:11 Primary Care Provider: Mihir Grant Admitting Provider: Miguel A Resendiz Attending physician on admission: Jane Guerrero Condition: Stable Quality VTE Prophylaxis VTE prophylaxis: pharmacologic ordered Hospitalist MIPS Heart Failure (Exclusion) Patient has history of Heart Transplant or Left Ventricular Assistive Device?: No IF YES, STOP HERE Heart Failure (Qualifier) Patient has current or prior documentation of LVEF less than or equal to 40%, or mod/servere depressed LVSF?: No IF NO, STOP HERE
== END 2024-08-02 14:40 | DRG 854 ==
LOC: ANHED 16:14 → ANH3MEDSUR 16:18 → ANH3MED 20:23
PROVIDERS: Internal Medicine; Nurse Practitioner; Physician Assistant; Urology; Admitting Provider General Practice; Emergency Provider Family Medicine; PCP Family Medicine Adolescent Medicine; Visit Provider Student in an Organized Health Care Education/Training Program
PROC: 0T788DZ Dilation of Bilateral Ureters with Intraluminal Device, Via Natural or Artificial Opening Endoscopic (ICD-10-PCS; CPT 52352; principal; 2024-07-27 16:15)
DX: A41.1 Sepsis due to other specified staphylococcus (principal); N13.6 Pyonephrosis; N17.9 Acute kidney failure, unspecified; I10 Essential (primary) hypertension; N40.0 Benign prostatic hyperplasia without lower urinary tract symptoms; I48.0 Paroxysmal atrial fibrillation; R33.8 Other retention of urine; F03.90 Unspecified dementia, unspecified severity, without behavioral disturbance, psychotic disturbance, mood disturbance, and anxiety; Z20.822 Contact with and (suspected) exposure to COVID-19; Z86.73 Personal history of transient ischemic attack (TIA), and cerebral infarction without residual deficits
CPT/HCPCS: 36415; 71045; 74176; 74420; 76775; 80048; 80053; 80074; 80076; 81001; 82248; 82550; 82948; 83036; 83605; 83615; 83690; 83735; 85025; 85027; 85046; 86880; 87040; 87086; 87181; 87637; 93005; 96361; 96365; 96375; 97110; 97162; 97165; 97530; 97535; 99285; A9270; C1758; C1769; C2617; C8929; J0690; J0696; J2175; J3010; J3370; J7030; J7120; Q9957; Q9966

== ENCOUNTER 2024-09-06 08:22 | Inpatient (IN) | payer MEDICARE, SELFPAY ==
[2024-09-06] VITALS (8 sets, daily range): BP systolic 105–164; BP diastolic 68–94; PULSE 72–89; RESP 16–18; TEMP 36.5–37.2; O2SAT 96–97; BMI 28.5
--- NOTE | ~2024-09-06 | CT_ITS ---
CT abdomen pelvis wo con Ordering provider: Morro Elmore MD History: 88 years Male with . Ureteral calculi, UTI . Comparison: None. Technique: CT abdomen and pelvis without IV and without oral contrast. Automated exposure control and iterative reconstruction technique were employed. The dose-length product was 768.52 mGy-cm. Findings: VISUALIZED LOWER CHEST: Dependent atelectatic changes. Nodule in the right lower lobe measuring 5 to laterally nodule is seen in the middle lobe measuring 4 mm. Slight cardiomegaly. Minimal pericardial effusion is seen. UPPER ABDOMINAL ORGANS: Liver: Normal. Gallbladder: Distended with no stones. Spleen: Normal. Stomach/duodenum: Small sliding hiatus hernia. Pancreas: Normal. Adrenals: Normal. Kidneys: Bilateral double-J stents. Mild right hydronephrotic changes. Tiny stones are seen in the le ft kidney mid and lower poles. Cysts are seen in the right kidney upper pole measuring 5 cm and 2 lucas timeters. Cyst in the left kidney lower pole is seen measuring 5.8 cm. PELVIC ORGANS: The bladder is underfilled with Gregory's catheter. Thickened wall is noted. Prostatic c alcifications. BOWEL AND MESENTERY: Colon: No evidence of diverticulitis.. Appendix is not demonstrated with no inflammatory changes in the right lower quadrant. Small Bowel: Normal. No obstruction. Peritoneum/mesentery: No free air or free fluid. No mesenteric lymphadenopathy. RETROPERITONEUM: Mild atheromatous disease of the abdominal aorta. No retroperitoneal lymphadenopat hy. MUSCULOSKELETAL: Superficial soft tissues: The superficial soft tissues are normal. Bones: Age appropriate degenerative changes of the spine. Old compression fracture in T11 unchanged f rom previous examination. IMPRESSION: 1. Tiny left kidney stones. Bilateral double-J stents. Bilateral renal cysts. 2. No evidence of appendicitis, diverticulitis or intestinal obstruction. 3. Underfilled urinary bladder with thickened wall. Further evaluation advised. Reviewed, dictated and finalized at location A. IMPRESSION: 1. Tiny left kidney stones. Bilateral double-J stents. Bilateral renal cysts. 2. No evidence of appendicitis, diverticulitis or intestinal obstruction. 3. Underfilled urinary bladder with thickened wall. Further evaluation advised .
--- OUTSIDE RECORDS SUMMARY | 2024-09-06 08:24 | XMS_ITS | Data Portability ---
Author Organization [email or web address] Main Office Address [address] [place] [address] Care Team Providers Care Paper Bag Maker Name Role Phone P [facility] FAX OTHER MIHIR NOGUEIRA Primary Care Provider Assessment Encounter Date Assessment Date Assessment LastModified by Organization Details LastModified Time 08/06/2024 08/06/2024 increase senna plus to 2 tabs daily - check bmp, cbc with diff 08/10 [email or web address] Not available 08/10/2024 02:34:14 08/10/2024 08/10/2024 Voiding trial later this AM. Labs (CBC, BMP) pending from this AM. Not available 08/10/2024 12:28:30 08/12/2024 08/12/2024 Labs (CBC, BMP) from 08/10 not drawn? Nursing to look into this and, if unable to locate, draw on 08/13. Not available 08/12/2024 17:34:54 08/18/2024 08/18/2024 Labs (CBC, CMP) on 08/20. Not available 08/19/2024 17:46:12 08/24/2024 08/24/2024 Mark will d/c home on 08/25 with [facility]. Not available 08/24/2024 15:03:11 Plan of Treatment Reminders Order Date Submit Date Provider Last Modified By Organization Details Last Modified Time Details Appointments None record ed. Lab None record ed. Referral None record ed. Procedures None record ed. Surgeries None record ed. Imaging None record ed. Medication Orders None record ed. Patient TargetsNo targets recorded. Patient Instructions Encounter Date Encounter Id Patient Instructions Last Modified By Organization Details Last Modified Time 08/06/2024 [id number] I spent {{ >50#} } minutes providing care to the patient today. More than 50% of that time was spent in discussing the expected course of the disease, discussing prognosis, coordinating care and counseling of the patient/family. [email or web address] Not available 08/10/2024 02:41:02 08/10/[id number] I spent {{ 35#}} minutes providing care to the patient today. More than 50% of that time was spent in discussing the expected course of the disease, discussing prognosis, coordinating care and counseling of the patient/family. Not available 08/10/2024 12:35:09 08/12/[id number] I spent {{ 36#}} minutes providing care to the patient today. More than 50% of that time was spent in discussing the expected course of the disease, discussing prognosis, coordinating care and counseling of the patient/family. Not available 08/12/2024 17:55:44 08/18/[id number] I spent {{ 37#}} minutes providing care to the patient today. More than 50% of that time was spent in discussing the expected course of the disease, discussing prognosis, coordinating care and counseling of the patient/family. Not available 08/19/2024 17:48:10 08/24/[id number] I spent {{ 40#}} minutes providing care to the patient today. More than 50% of that time was spent in discussing the expected course of the disease, discussing prognosis, coordinating care and counseling of the patient/family. The patient will be discharged home with home health orders of home health RN / PT / OT to evaluate and treat. The patient is homebound because of {{gait instability poor balance fall risk* respiratory difficulties cogn itive impairment disori entation severe pain wounds}} and is unable to leave home safely because {{requires use of an assistive device and assistance of another person to leave home requires considerable and taxing effort to leave home* of cognitive impairment}}. The patient requires home health nursing for instruction, observation and assessment; PT for training to restore safe independent functional ambulation in community; and OT for training to improve ability to fulfill ADLs. Please follow-up with your primary care provider within 1 week. Call your primary care provider for instructions or go to the emergency room for new or worsening symptoms. [email or web address] Not available 08/24/2024 15:03:27 Reason for Referral None Reported. Results Created Date Observation Date Name Description Value Unit Range Abnormal Flag Note LastModifiedBy Organization Detail LastModifiedTime Result Notes None recorded. Procedures Surgical History Date Name Laterality Status Provider Name and Address Organization Details Recorded Time insertion of stent into ureter completed Livier Reid, HUSSAIN [address] [facility], [place], [address], [facility] 08/03/2024 13:23:10 Imaging Results None recorded. Procedure Notes None recorded. Medical Equipment None Reported. Allergies No known drug allergies Medications Name Sig Start Date Stop Date Status Note LastModified by Organization Details LastModified Time Refresh Tears 0.5 % eye drops Apply 2 drops twice a day by ophthalmi c route. active Not Available Not Available No t Available acetaminoph en 325 mg tablet Take 2 tablets every 6 hours by oral route as needed. active Not Available Not Available No t Available hydrocodone 5 mg-acetamin ophen 325 mg tablet Take 1 tablet every 4 hours by oral route as needed. 08/03 completed Not Available Not Available Not Available Milk of Magnesia 400 mg/5 mL oral suspension Take 30 mL every day by oral route as needed. active Not Available Not Available No t Available sulfamethox azole 800 mg-trimetho prim 160 mg tablet Take 1 tablet every 12 hours by oral route for 9 days. 08/12 completed Stop Date: 08/11 Not Available Not Available Not Available Dulcolax (bisacodyl) 10 mg rectal suppository Insert 1 supposito ry every day by rectal route as needed. active Not Available Not Available No t Available Narcan 0.4 mg/mL injection solution Take 0.25 mL every 2 months by injection route as needed. 08/03 completed Not Available Not Available Not Available tamsulosin 0.4 mg capsule Take 1 capsule every day by oral route. active Not Available Not Available No t Available cephalexin 500 mg capsule Take 1 capsule every 6 hours by oral route. 08/03 completed Not Available Not Available Not Available hyoscyamine sulfate 0.125 mg tablet Take 1 tablet every 6 hours by oral route as needed. 08/03 completed Not Available Not Available Not Available metoprolol tartrate 50 mg tablet Take 0.25 tablets twice a day by oral route. 08/03 completed Not Available Not Available Not Available docusate sodium 100 mg capsule Take 1 capsule twice a day by oral route. 08/03 completed Not Available Not Available Not Available finasteride 5 mg tablet Take 1 tablet every day by oral route. active Not Available Not Available No t Available metoprolol tartrate 25 mg tablet Take 0.5 tablets twice a day by oral route. active Not Available Not Available No t Available ondansetron HCl (PF) 4 mg/2 mL injection solution Take 2 mL twice a day by injection route as needed. 08/10 completed Not Available Not Available Not Available Eliquis 2.5 mg tablet Take 1 tablet twice a day by oral route. active Not Available Not Available No t Available Senna Plus 8.6 mg-50 mg capsule Take 2 capsules twice a day by oral route as needed. active Not Available Not Available No t Available Vitals Date Recorded Heart rate Body temperature Respiratory rate Oxygen saturation Oxygen saturation in Arterial blood by Pulse oximetry Body weight Body mass index (BMI) Body height Systolic blood pressure Diastolic blood pressure Provider Name and Address Organization Details Last Updated DateTime 5 79 /min 98 [degF] 18 /min 94 % 94 % 33880.4 g 28.5 kg/m2 182.88 cm 122 mm[Hg] 81 mm[Hg] [place] [address] [place], [address] , [facility] 17:19:42 Date Recorded Body height Heart rate Body temperature Respiratory rate Oxygen saturation Oxygen saturation in Arterial blood by Pulse oximetry Body mass index (BMI) Body weight Systolic blood pressure Diastolic blood pressure Provider Name and Address Organization Details Last Updated DateTime 5 182.88 cm 74 /min 97.8 [degF] 20 /min 94 % 94 % 28.1 kg/m2 16595.3 4 g 117 mm[Hg] 70 mm[Hg] [place] [address] [place], [address] , [facility] 12:15:18 Date Recorded Body height Heart rate Body temperature Respiratory rate Oxygen saturation Oxygen saturation in Arterial blood by Pulse oximetry Body mass index (BMI) Body weight Systolic blood pressure Diastolic blood pressure Provider Name and Address Organization Details Last Updated DateTime 5 182.88 cm 81 /min 98.3 [degF] 18 /min 97 % 97 % 27.1 kg/m2 80699.4 g 115 mm[Hg] 70 mm[Hg] [place] [address] [place], [address], [place] - [facility] 5 10:50:04 Date Recorded Body height Heart rate Body temperature Respiratory rate Oxygen saturation Oxygen saturation in Arterial blood by Pulse oximetry Body mass index (BMI) Body weight Systolic blood pressure Diastolic blood pressure Provider Name and Address Organization Details Last Updated DateTime 5 182.88 cm 77 /min 98.2 [degF] 18 /min 95 % 95 % 26.9 kg/m2 10929.4 4 g 116 mm[Hg] 73 mm[Hg] [place] [address] [place], [address], [place] [facility] 14:22:43 Date Recorded Body height Heart rate Body temperature Respiratory rate Oxygen saturation Oxygen saturation in Arterial blood by Pulse oximetry Body mass index (BMI) Body weight Systolic blood pressure Diastolic blood pressure Provider Name and Address Organization Details Last Updated DateTime 5 182.88 cm 81 /min 98.2 [degF] 20 /min 95 % 95 % 27 kg/m2 30019.3 2 g 108 mm[Hg] 69 mm[Hg] [place] [address] [facility], [place], [address], [place] [facility] 14:58:46 Social History Question Answer Notes LastModified by Organizat ion Details LastModified Time Tobacco Smoking [place] [address] [facility], [place], [address], [facility] - [facility] 08/03/2024 13:23:44 What Is Your Level Of Alcohol Consumption? None [email or web address] Information not available 08/01/2024 What Was The Date Of Your Most Recent Tobacco Screening? 08/03/2024 Information not available 08/03/2024 What Is Your Relationship Status? Information not available 08/03/2024 Do You Use Any Illicit Or Recreational Drugs? No Information not available 08/03/2024 Sex: Unknown Functional Status None recorded. Mental Status None recorded. Family History Relationship Description Onset Age of this Age Resolved Age Notes LastModified by Organization Details LastModified Time Unspecified Relation Diabetes mellitus [email or web address] Not available 2024 02:26:00 Unspecified Relation Coronary arterioscler osis [email or web address] Not available 2024 02:26:23 Unspecified Relation Malignant tumor of colon [email or web address] Not available 2024 02:26:34 Medical History Condition Response Stroke (CVA) Y Atrial Fibrillation Y Glaucoma Y Benign Prostatic Hyperplasia (BPH) Y Dementia Y Hypertension Y Past Encounters Encounter ID Performer Location Encounter Start Date Encounter Closed Date Diagnosis/Indication Diagnosis SNOMED-CT Code Diagnosis ICD10 Code Diagnosis Note [id number] Livier Reid NP [address] [address] 08/03/2024 10:12:37 08/17/2024 11:38:01 Hydronephrosis due to calculus of kidney and ureter 527056876 N13.2 sec to calculi s/p bilateral ureteral stents with resolution .Continue Tamsulosin & Finasterid e and treatment of UTI as above.Cont inue PRN APAP for pain.Pt will need f/u appt with Dr. Constantino as OP for ureteral stent removal. Will need Eliquis held prior to this procedure. Acute kidney injury 1466 9001 N17.9 Does not appear to have hx of CKD. Cr was 2.82 on ER arrival, down to 0.7-0.8s at discharge. Monitor closely, especially as pt is on Bactrim. 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 Treated with IV antibiotic s while inpatient and discharged on PO Bactrim through 08/11.Pt is without S&S of UTI at present. Paroxysmal atrial fibrillation 119905782 I48.0 New diagnosis, likely provoked by infection. Started on Metoprolol for rate control & Eliquis for VTE prophylaxi s.He had converted back to NSR by time of hospital discharge. Pt will need to f/u/establ mj with Dr. Thompson (cards) at discharge. Liver enzy mes level above reference range 512230208 R74.01 Noted upon ER arrival, had resolved with supportive care above.Cont inue to monitor. Hepatitis panel was negative. Benign pro static hyperplasia with outflow obstruction 992789878 N40.1 Pt failed voiding trial while inpatient, so norton was replaced.C ontinue Tamsulosin & Finasterid e and treatment of UTI as above.Will need repeat voiding trial here.F/U with Dr. Constantino as above. Retention of urine 83376 4002 R33.9 SEE ABOVE... Hypertensive disorder 38 185401 I10 Stable. Continue Metoprolol (new). OP Lisinopril was stopped.Co ntinue to trend blood pressures, monitor lytes and renal function, and adjust meds as clinically indicated. History of cerebrovascular accident 518383105 Z86.73 Details unclear. No physical deficits noted.Cont inue therapies, Eliquis, and good BP control. Dementia 60602104 F03.90 Appears mild at present. Not on medication s. Monitor for need.ST to follow. Glaucoma 45076122 H40.9 Presumed stable. Need to confirm if pt uses eye gtts as OP.F/U with ophthalmol ogy as OP. Nystagmus 718410 H55.00 F/U with ophthalmol ogy as OP. Physical deconditioning 4243401386 9102 R68.89 Related to age, recent inpatient stay, and multiple comorbidit ies. Continue PT/OT/ST and monitor progress. Goal is for pt to return home with . Bacteremia 7127420 R78.8 1 SEE ABOVE... Constipation 34425133 K5 9.00 Per pt, has not had a BM since before his hospitaliz ation (07/27). He takes routine cathartics as OP. Add Senna Plus BID. Additional cathartics are available per standing orders. 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 Treated with IV antibiotic s while inpatient and discharged on PO Bactrim through 08/11.Pt is without S&S of UTI at presentmon itor clinically Hydronephr osis due to calculus of kidney and ureter 849414518 N13.2 sec to calculi s/p bilateral ureteral stents with resolution .Continue Tamsulosin & Finasterid e and treatment of UTI as above.Cont inue PRN APAP for pain.Pt will need f/u appt with Dr. Constantino as OP for ureteral stent removal. Will need Eliquis held prior to this procedure. Bacteremia 1457038 R78.8 1 SEE ABOVE... Acute kidney injury 1466 9001 N17.9 Does not appear to have hx of CKD. Cr was 2.82 on ER arrival, down to 0.7-0.8 at discharge. Monitor closely, especially as pt is on Bactrim.Cr eatinine 0.9 per labs 08/03 - f/u labs ordered for 08/10 Paroxysmal atrial fibrillation 483684293 I48.0 New diagnosis, likely provoked by infection. Started on Metoprolol for rate control & Eliquis for VTE prophylaxi s.He had converted back to NSR by time of hospital discharge. Pt will need to f/u/establ mj with Dr. Thompson (cards) at discharge. Liver enzy mes level above reference range 632742941 R74.01 Noted upon ER arrival, had resolved with supportive care above.Cont inue to monitor. Hepatitis panel was negative. Benign pro static hyperplasia with outflow obstruction 038289577 N40.1 Pt failed voiding trial while inpatient, so norton was replaced.C ontinue Tamsulosin & Finasterid e and treatment of UTI as above.Will need repeat voiding trial here once more mobileF/U with Dr. Constantino as above. Retention of urine 60041 4002 R33.9 SEE ABOVE... Hypertensive disorder 38 263445 I10 Stable. Continue Metoprolol (new). OP Lisinopril was stopped.Co ntinue to trend blood pressures, monitor lytes and renal function, and adjust meds as clinically indicated. History of cerebrovascular accident 835487790 Z86.73 Details unclear. No physical deficits noted.Cont inue therapies, Eliquis, and good BP control. Dementia 06976119 F03.90 Appears mild at present. Not on medication s. Monitor for need.ST to follow. Constipation 61948456 K5 9.00 increasing senna to BID - he is currently only getting once dailyMOM given and plans for suppositor y tomorrow if no BM Senna Plus BIDd/w nursing giving fleets if no results with suppositor y Glaucoma 56551456 H40.9 the patient is legally blind - reports he does not use routine eye drops at this pointF/U with ophthalmol ogy as OP. Nystagmus 437457 H55.00 F/U with ophthalmol ogy as OP. Physical deconditioning 3697110172 9102 R68.89 Related to age, recent inpatient stay, and multiple comorbidit ies. Continue PT/OT/ST and monitor progress. Goal is for pt to return home with . 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 Treated with IV antibiotic s while inpatient and discharged on PO Bactrim through 08/11.Pt is without S&S of UTI at present.Nam fay clinically . Hydronephr osis due to calculus of kidney and ureter 333227598 N13.2 sec to calculi s/p bilateral ureteral stents with resolution .Continue Tamsulosin & Finasterid e and treatment of UTI as above.Cont inue PRN APAP for pain.F/U with Dr. Constantino (urology) on 08/31 -- pt will need ureteral stent removal. Will need Eliquis held prior to this procedure. Bacteremia 9635739 R78.8 1 SEE ABOVE... Acute kidney injury 1466 9001 N17.9 Does not appear to have hx of CKD. Cr was 2.82 on ER arrival, down to 0.7-0.8 at discharge. Monitor closely, especially as pt is on Bactrim.Cr eatinine 0.9 per labs 08/03.Ju nue to trend. Paroxysmal atrial fibrillation 377571315 I48.0 New diagnosis, likely provoked by infection. Started on Metoprolol for rate control & Eliquis for VTE prophylaxi s.He had converted back to NSR by time of hospital discharge. F/U with Dr. Thompson (cards) on 08/27. Liver enzy mes level above reference range 405864623 R74.01 Noted upon ER arrival, had resolved with supportive care above.Cont inue to monitor. Hepatitis panel was negative. Benign pro static hyperplasia with outflow obstruction 554185575 N40.1 Pt failed voiding trial while inpatient, so norton was replaced.C ontinue Tamsulosin & Finasterid e and treatment of UTI as above.Repe ating voiding trial this morning.F/ U with Dr. Constantino on 08/31. Retention of urine 53425 4002 R33.9 SEE ABOVE... Hypertensive disorder 38 912688 I10 Stable. Continue Metoprolol (new). OP Lisinopril was stopped.Co ntinue to trend blood pressures, monitor lytes and renal function, and adjust meds as clinically indicated. History of cerebrovascular accident 442281184 Z86.73 Details unclear. No physical deficits noted.Cont inue therapies, Eliquis, and good BP control. Dementia 40872289 F03.90 Appears mild at present. Not on medication s. Monitor for need.ST to follow. Constipation 86703550 K5 9.00 Improved. Continue Senna to BID and PRN cathartics . Glaucoma 52214389 H40.9 Patient is legally blind. Reports he does not use routine eye drops at this point.F/U with ophthalmol ogy as OP. Nystagmus 649734 H55.00 F/U with ophthalmol ogy as OP. Physical deconditioning 2910828432 9102 R68.89 Related to age, recent inpatient stay, and multiple comorbidit ies.Contin ue PT/OT/ST and monitor progress. Goal is for pt to return home with . 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 Treated with IV antibiotic s while inpatient and discharged on PO Bactrim here, completed on 08/11.Pt is without S&S of UTI at present beyond continuing retention. Monitor clinically . Hydronephr osis due to calculus of kidney and ureter 065897873 N13.2 sec to calculi s/p bilateral ureteral stents with resolution .Completed treatment of UTI as above.Cont inue PRN APAP for pain.F/U with Dr. Constantino (urology) on 08/31 -- pt will need ureteral stent removal. Will need Eliquis held prior to this procedure. Bacteremia 3453048 R78.8 1 SEE ABOVE... Acute kidney injury 1466 9001 N17.9 Does not appear to have hx of CKD. Cr was 2.82 on ER arrival, down to 0.7-0.8 at discharge. Stable thus far. Monitor closely.Co ntinue to trend. Benign pro static hyperplasia with outflow obstruction 045393820 N40.1 Pt failed voiding trial while inpatient, so norton was replaced.C ompleted treatment of UTI as above.Cont inue Tamsulosin & Finasterid e.Failed repeat voiding trial at this facility on 08/10.F/U with Dr. Constantino on 08/31. Retention of urine 74121 4002 R33.9 SEE ABOVE... Paroxysmal atrial fibrillation 450686917 I48.0 New diagnosis, likely provoked by infection. Started on Metoprolol for rate control & Eliquis for VTE prophylaxi s.He had converted back to NSR by time of hospital discharge. F/U with Dr. Thompson (cards) on 08/27. Liver enzy mes level above reference range 910034154 R74.01 Noted upon ER arrival, had resolved with supportive care above.Cont inue to monitor. Hepatitis panel was negative. Hypertensive disorder 38 058211 I10 Stable. Continue Metoprolol (new). OP Lisinopril was stopped.Co ntinue to trend blood pressures, monitor lytes and renal function, and adjust meds as clinically indicated. History of cerebrovascular accident 732016995 Z86.73 Details unclear. No physical deficits noted.Cont inue therapies, Eliquis, and good BP control. Dementia 35151101 F03.90 Appears mild at present. Not on medication s. Monitor for need.ST to follow. Constipation 66624958 K5 9.00 Improved. Continue Senna to BID and PRN cathartics . Glaucoma 95936607 H40.9 Patient is legally blind. Reports he does not use routine eye drops at this point.F/U with ophthalmol ogy as OP. Nystagmus 152153 H55.00 F/U with ophthalmol ogy as OP. Physical deconditioning 4236155862 9102 R68.89 Related to age, recent inpatient stay, and multiple comorbidit ies.Contin ue PT/OT/ST and monitor progress. Goal is for pt to return home with . 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 Treated with IV antibiotic s while inpatient and discharged on PO Bactrim here, completed on 08/11.Pt is without S&S of UTI at present beyond continuing retention. Monitor clinically . Hydronephr osis due to calculus of kidney and ureter 883645212 N13.2 sec to calculi s/p bilateral ureteral stents with resolution .Completed treatment of UTI as above.Cont inue PRN APAP for pain.F/U with Dr. Constantino (urology) on 08/31 -- pt will need ureteral stent removal. Will need Eliquis held prior to this procedure. Bacteremia 6942439 R78.8 1 SEE ABOVE... Acute kidney injury 1466 9001 N17.9 Does not appear to have hx of CKD. Cr was 2.82 on ER arrival, down to 0.7-0.8 at discharge. Stable thus far. Monitor closely.Co ntinue to trend. Benign pro static hyperplasia with outflow obstruction 179623403 N40.1 Pt failed voiding trial while inpatient, so norton was replaced.C ompleted treatment of UTI as above.Cont inue Tamsulosin & Finasterid e.Failed repeat voiding trial at this facility on 08/10.F/U with Dr. Constantino on 08/31. Retention of urine 04852 4002 R33.9 SEE ABOVE... Paroxysmal atrial fibrillation 554017208 I48.0 New diagnosis, likely provoked by infection. Started on Metoprolol for rate control & Eliquis for VTE prophylaxi s.He had converted back to NSR by time of hospital discharge. F/U with Dr. Thompson (cards) on 08/27. Liver enzy mes level above reference range 052074010 R74.01 Noted upon ER arrival, had resolved with supportive care above.Cont inue to monitor. Hepatitis panel was negative. Hypertensive disorder 38 336802 I10 Stable. Continue Metoprolol (new).OP Lisinopril was stopped.Co ntinue to trend blood pressures, monitor lytes and renal function, and adjust meds as clinically indicated. History of cerebrovascular accident 328927937 Z86.73 Details unclear. No physical deficits noted.Cont inue therapies, Eliquis, and good BP control. Dementia 09713002 F03.90 Appears mild at present. Not on medication s. Monitor for need.ST to follow. Constipation 73990935 K5 9.00 Improved. Continue Senna to BID and PRN cathartics . Glaucoma [id number] H40.9 Patient is legally blind. Reports he does not use routine eye drops at this point.F/U with ophthalmol ogy as OP. Nystagmus 565510 H55.00 F/U with ophthalmol ogy as OP. Physical deconditioning [id number] 9102 R68.89 Related to age, recent inpatient stay, and multiple comorbidit ies.Contin ue PT/OT/ST and monitor progress. Goal is for pt to return home with . [id number] Livier Reid NP [address] [address] 08/24/2024 13:32:28 08/31/2024 22:25:07 Benign prostatic hyperplasia with outflow obstruction [id number] N40.1 Pt failed voiding trial while inpatient, so norton was replaced.C ompleted treatment of UTI as above.Cont inue Tamsulosin & Finasterid e.Failed repeat voiding trial at this facility on 08/10.F/U with Dr. Constantino on 08/31. Retention of urine [id number] [id number] R33.9 SEE ABOVE... Acute urin mere tract infection [id number] N39.0 Blood culture & urine culture grew Staphyloco ccus simulans. Treated with IV antibiotic s while inpatient and discharged on PO Bactrim here, completed on 08/11.Pt is without S&S of UTI at present beyond continuing retention. Monitor clinically . Hydronephr osis due to calculus of kidney and ureter [id number] N13.2 sec to calculi s/p bilateral ureteral stents with resolution .Completed treatment of UTI as above.Cont inue PRN APAP for pain.F/U with Dr. Constantino (urology) on 08/31 -- pt will need ureteral stent removal. Will need Eliquis held prior to this procedure. Bacteremia [id number] R78.8 1 SEE ABOVE... Acute kidney injury 1466 9001 N17.9 Does not appear to have hx of CKD. Cr was 2.82 on ER arrival, down to 0.7-0.8 at discharge. Stable thus far. Monitor closely.Co ntinue to trend. Paroxysmal atrial fibrillation [id number] I48.0 New diagnosis, likely provoked by infection. Started on Metoprolol for rate control & Eliquis for VTE prophylaxi s.He had converted back to NSR by time of hospital discharge. F/U with Dr. Thompson (cards) on 08/27. Liver enzy mes level above reference range 996002631 R74.01 Noted upon ER arrival, had resolved with supportive care above.Cont inue to monitor. Hepatitis panel was negative. Hypertensive disorder 38 655628 I10 Stable. Continue Metoprolol (new).OP Lisinopril was stopped.Co ntinue to trend blood pressures, monitor lytes and renal function, and adjust meds as clinically indicated. History of cerebrovascular accident [id number] Z86.73 Details unclear. No physical deficits noted.Cont inue therapies, Eliquis, and good BP control. Dementia 05487612 F03.90 Appears mild at present. Not on medication s. Monitor for need.ST to follow. Constipation 70406680 K5 9.00 Improved. Continue Senna to BID and PRN cathartics . Glaucoma 53754260 H40.9 Patient is legally blind. Reports he does not use routine eye drops at this point.F/U with ophthalmol ogy as OP. Nystagmus 843914 H55.00 F/U with ophthalmol ogy as OP. Health Concerns Section Related Observation LastModified by Organization Detai ls LastModified Time None Recorded Concern Status LastModified by Organization Details LastModified Time None Recorded Advance Directives Directive None Recorded Payers Encounter Date Sequence Insurance Name Policy Number Policy [employer]cer[employer] Covered Member ID Mancer[employer] Member ID Guarantor Name 08/06/2024 1 [place] Mark Gallardo [id number] Bernardo Gallardo 08/06/2024 2 [employer] (MEDICARE SUPPLEMENT) Bernardo Gallardo [id number] Bernardo Gallardo 08/10/2024 1 [place] Mark Gallardo [id number] Bernardo Gallardo 08/10/2024 2 [employer] (MEDICARE SUPPLEMENT) Bernardo Gallardo [id number] Bernardo Gallardo 08/12/2024 1 [place] Mark Gallardo [id number] Bernardo Gallardo 08/12/2024 2 [employer] (MEDICARE SUPPLEMENT) Bernardo Gallardo [id number] Bernardo Gallardo 08/18/2024 1 [place] Mark Gallardo [id number] Bernardo Gallardo 08/18/2024 2 [employer] (MEDICARE SUPPLEMENT) Bernardo Gallardo [id number] Bernardo Gallardo 08/24/2024 1 [place] Mark Gallardo [id number] 2 Bernardo Gallardo 08/24/2024 2 [employer] (MEDICARE SUPPLEMENT) Bernardo Gallardo [id number] Bernardo Gallardo Notes Date Note Type Note Provider Name and Address Organization Details Recorded Time 5 text/html 88-year-old male with PMH of HTN, CVA, Dementia, BPH, Glaucoma, and Nystagmus presenting for rehabilitation following hospitalization at [facility] from 07/27 to 08/02/24 for sepsis sec to UTI & bilateral hydroureteronephrosis sec to calculi s/p bilateral ureteral stent placement, TAVIA, new diagnosis Afib, Transaminitis, weakness, and chronic medical conditions. Bernardo lives at a home in [place] with his Haley. He has poor vision and balance issues at baseline so he ambulates with walker within his home. His fell recently with a hip fracture so has been in a rehabilitation unit up until recently. Bernardo was in his normal state of health until, a few days prior to ER arrival, he developed weakness, abdominal pain, dysuria, and N/V. His son-in-law picked up his Haley from her rehab unit to bring her home to him, however son-in-law noted Bernardo was running a fever, was lethargic, and profoundly weak. He left the pt's in the car and loaded Bernardo into his vehicle, taking him to the ER for evaluation. WBC was 17.7, Cr 2.82, Lactic acid 2, AST 90, ALT 61, total bili 5.8. He was noted to be in Afib with RVR, which is a new diagnosis for him. For this, he was started on Metoprolol & Eliquis. Lisinopril was stopped. By hospital discharge, he was back in NSR. Echo noted LVEF 55-60% with no endocarditis. CT of abd/pelvis showed bilateral hydroureteronephrosis sec to calculi within left ureter and bladder. He was started on IV antibiotics and underwent cystoscopy with bilateral ureteral stent placement on 07/[address] Constantino. Urine cx and 2 of 4 blood culture bottles grew Staphylococcus simulans. He was treated with IV antibiotics and discharged on Bactrim through 08/11. Voiding trial was attempted but failed with retention, so catheter was replaced. We are to reattempt a voiding trial during his stay here. He has been discharged to this facility for rehabilitation before returning home with his . New meds: Bactrim through 08/11. Metoprolol. Eliquis.Adjusted meds: None.Stopped meds: Lisinopril. 08/03/24Franklin is resting in bed, overall a decent historian and able to answers questions asked. He is without concerns or pain to report, appears to be doing well, acknowledges he needs to be stronger before returning home with his but otherwise feels he is doing much better. VSS. Staff is without concerns today. Full Code. Confirmed with pt today. He says, I want to live. mPOA is grandson Sachin Ayala, who is local. Pt lives with his Haley. Right now, their granddaughter Tona is helping care for Haley. Pt's son Oswaldo is also local.PCP Dr. Mihir Grant. 08/06/24e patient is lying in bed this evening, a fair historian. He voices his desire to go home. He feels he is doing well with therapy and will be able to manage his needs at home with his family's support soon. Norton catheter remains in place. He is very constipated - still hasn't had a BM since admission. He was given MOM this evening and plan is for suppository tomorrow if no BM overnight.Per therapy notes: member is AMB up to 30 feet MIN A/FWW, transfers/bed mobility MIN A, dressing CGA, [place] [address] [place], [address], [facility] 08/10/2024 02:41:36 5 text/html F/U sepsis sec to UTI & bilateral hydroureteronephrosis sec to calculi s/p bilateral ureteral stent placement, TAVIA, new diagnosis Afib, Transaminitis, weakness, and chronic medical conditions.---08/03/24Mark simon is resting in bed, overall a decent historian and able to answers questions asked. He is without concerns or pain to report, appears to be doing well, acknowledges he needs to be stronger before returning home with his but otherwise feels he is doing much better. VSS. Staff is without concerns today.---08/06/24 patient is lying in bed this evening, a fair historian. He voices his desire to go home. He feels he is doing well with therapy and will be able to manage his needs at home with his family's support soon. Norton catheter remains in place. He is very constipated - still hasn't had a BM since admission. He was given MOM this evening and plan is for suppository tomorrow if no BM overnight. Per therapy notes: member is AMB up to 30 feet MIN A/FWW, transfers/bed mobility MIN A, dressing CGA, toileting MIN A---08/10/24Mark is seated in his recliner in his room, a fair historian, his only concern is his desire to go home. He hopes he will be discharging home soon as he feels he is ready. He did successfully have a BM last evening, as well as on 08/07. VSS. Staff is without concerns today. His norton catheter will be removed this morning as part of voiding trial. Livier Reid, [employer] [address] [facility], [place], [address], [place] [facility] 08/10/2024 12:35:23 5 text/html F/U sepsis sec to UTI & bilateral hydroureteronephrosis sec to calculi s/p bilateral ureteral stent placement, TAVIA, new diagnosis Afib, Transaminitis, weakness, and chronic medical conditions.---08/03/24Mark simon is resting in bed, overall a decent historian and able to answers questions asked. He is without concerns or pain to report, appears to be doing well, acknowledges he needs to be stronger before returning home with his but otherwise feels he is doing much better. VSS. Staff is without concerns today.---08/06/24 patient is lying in bed this evening, a fair historian. He voices his desire to go home. He feels he is doing well with therapy and will be able to manage his needs at home with his family's support soon. Norton catheter remains in place. He is very constipated - still hasn't had a BM since admission. He was given MOM this evening and plan is for suppository tomorrow if no BM overnight. Per therapy notes: member is AMB up to 30 feet MIN A/FWW, transfers/bed mobility MIN A, dressing CGA, toileting MIN A---08/10/24Mark is seated in his recliner in his room, a fair historian, his only concern is his desire to go home. He hopes he will be discharging home soon as he feels he is ready. He did successfully have a BM last evening, as well as on 08/07. VSS. Staff is without concerns today. His norton catheter will be removed this morning as part of voiding trial.---08/12/24Mark is lying in bed, a fair historian, without pain or concerns today. He again expresses that he wants to discharge home and becomes tearful when he tells me he misses his . He completed his course of Bactrim on 08/11.A repeat voiding trial here on 08/10 was again unsuccessful; norton was replaced. VSS. Staff is without concerns today. Per recent therapy notes: Pt SBA for bed mobility from supine to EOB using bed cane. Pt SRIVASTAVA LB/UB dressing, including socks, with assist required only for orientation of shirts. Pt SBA for STS from EOB to 2ww, CGA during functional mobility to 2ww with vc for direction to w/c d/t low vision. Livier Reid, HUSSAIN [address] [facility], [place], [address], [place] [facility] 08/12/2024 17:59:30 5 text/html F/U sepsis sec to UTI & bilateral hydroureteronephrosis sec to calculi s/p bilateral ureteral stent placement, TAVIA, new diagnosis Afib, Transaminitis, weakness, and chronic medical conditions.---08/03/24Mark simon is resting in bed, overall a decent historian and able to answers questions asked. He is without concerns or pain to report, appears to be doing well, acknowledges he needs to be stronger before returning home with his but otherwise feels he is doing much better. VSS. Staff is without concerns today.---08/06/24e patient is lying in bed this evening, a fair historian. He voices his desire to go home. He feels he is doing well with therapy and will be able to manage his needs at home with his family's support soon. Norton catheter remains in place. He is very constipated - still hasn't had a BM since admission. He was given MOM this evening and plan is for suppository tomorrow if no BM overnight. Per therapy notes: member is AMB up to 30 feet MIN A/FWW, transfers/bed mobility MIN A, dressing CGA, toileting MIN A---08/10/24Mark is seated in his recliner in his room, a fair historian, his only concern is his desire to go home. He hopes he will be discharging home soon as he feels he is ready. He did successfully have a BM last evening, as well as on 08/07. VSS. Staff is without concerns today. His norton catheter will be removed this morning as part of voiding trial.---08/12/24Mark is lying in bed, a fair historian, without pain or concerns today. He again expresses that he wants to discharge home and becomes tearful when he tells me he misses his . He completed his course of Bactrim on 08/11. A repeat voiding trial here on 08/10 was again unsuccessful; norton was replaced. VSS. Staff is without concerns today. Per recent therapy notes: Pt SBA for bed mobility from supine to EOB using bed cane. Pt SRIVASTAVA LB/UB dressing, including socks, with assist required only for orientation of shirts. Pt SBA for STS from EOB to 2ww, CGA during functional mobility to 2ww with vc for direction to w/c d/t low vision. ---08/18/24Mark is resting in bed, a fair historian, without concerns or pain today. He continues to wish he could discharge home. He continues to make progress with therapy. VSS. Staff is without concerns for him today. Per therapy notes on 08/17: Conducted gait training with FWW 100' CGA cues for direction due to blindness... pvt transfer bed to CGA cues for hand placement due to blindness Livier Reid, HUSSAIN [address] [place], [address], [place] - [facility] 08/19/2024 17:48:19 5 text/html 88-year-old male with PMH of HTN, CVA, Dementia, BPH, Glaucoma, and Nystagmus presenting for rehabilitation following hospitalization at [facility] from 07/27 to 08/02/24 for sepsis sec to UTI & bilateral hydroureteronephrosis sec to calculi s/p bilateral ureteral stent placement, TAVIA, new diagnosis Afib, Transaminitis, weakness, and chronic medical conditions. Bernardo lives at a home in [place] with his Haley. He has poor vision and balance issues at baseline so he ambulates with walker within his home. His fell recently with a hip fracture so has been in a rehabilitation unit up until recently. Bernardo was in his normal state of health until, a few days prior to ER arrival, he developed weakness, abdominal pain, dysuria, and N/V. His son-in-law picked up his Haley from her rehab unit to bring her home to him, however son-in-law noted Bernardo was running a fever, was lethargic, and profoundly weak. He left the pt's in the car and loaded Bernardo into his vehicle, taking him to the ER for evaluation. WBC was 17.7, Cr 2.82, Lactic acid 2, AST 90, ALT 61, total bili 5.8. He was noted to be in Afib with RVR, which is a new diagnosis for him. For this, he was started on Metoprolol & Eliquis. Lisinopril was stopped. By hospital discharge, he was back in NSR. Echo noted LVEF 55-60% with no endocarditis. CT of abd/pelvis showed bilateral hydroureteronephrosis sec to calculi within left ureter and bladder. He was started on IV antibiotics and underwent cystoscopy with bilateral ureteral stent placement on 07/[address] Constantino. Urine cx and 2 of 4 blood culture bottles grew Staphylococcus simulans. He was treated with IV antibiotics and discharged on Bactrim through 08/11. Voiding trial was attempted but failed with retention, so catheter was replaced. We are to reattempt a voiding trial during his stay here. He has been discharged to this facility for rehabilitation before returning home with his . New meds: Bactrim through 08/11. Metoprolol. Eliquis.Adjusted meds: None.Stopped meds: Lisinopril. Full Code.mPOA is grandedilma Ayala, who is local. Pt lives with his Haley. Right now, their granddaughter Tona is helping care for Haley. Pt's son Oswaldo is also local.PCP Dr. Mihir Grant. ---08/03/24Frchino is resting in bed, overall a decent historian and able to answers questions asked. He is without concerns or pain to report, appears to be doing well, acknowledges he needs to be stronger before returning home with his but otherwise feels he is doing much better. VSS. Staff is without concerns today.---08/06/24e patient is lying in bed this evening, a fair historian. He voices his desire to go home. He feels he is doing well with therapy and will be able to manage his needs at home with his family's support soon. Norton catheter remains in place. He is very constipated - still hasn't had a BM since admission. He was given MOM this evening and plan is for suppository tomorrow if no BM overnight. Per therapy notes: member is AMB up to 30 feet MIN A/FWW, transfers/bed mobility MIN A, dressing CGA, toileting MIN A---08/10/24Mark is seated in his recliner in his room, a fair historian, his only concern is his desire to go home. He hopes he will be discharging home soon as he feels he is ready. He did successfully have a BM last evening, as well as on 08/07. VSS. Staff is without concerns today. His norton catheter will be removed this morning as part of voiding trial.---08/12/24Mark is lying in bed, a fair historian, without pain or concerns today. He again expresses that he wants to discharge home and becomes tearful when he tells me he misses his . He completed his course of Bactrim on 08/11. A repeat voiding trial here on 08/10 was again unsuccessful; norton was replaced. VSS. Staff is without concerns today. Per recent therapy notes: Pt SBA for bed mobility from supine to EOB using bed cane. Pt SRIVASTAVA LB/UB dressing, including socks, with assist required only for orientation of shirts. Pt SBA for STS from EOB to 2ww, CGA during functional mobility to 2ww with vc for direction to w/c d/t low vision. ---08/18/24Mark is resting in bed, a fair historian, without concerns or pain today. He continues to wish he could discharge home. He continues to make progress with therapy. VSS. Staff is without concerns for him today. Per therapy notes on 08/17: Conducted gait training with FWW 100' CGA cues for direction due to blindness... pvt transfer bed to CGA cues for hand placement due to blindness ---08/24/24Mark is resting in bed, a fair historian, without pain or concerns to report. He is looking forward to his discharge home and does not offer any concerns regarding his discharge. VSS. Staff is without concerns. Per today's therapy notes: Conducted gait training with FWW 150' CGA cues for blindness. Bed mobility Spv with vc due to blindness . sit/stand CGA 1 LOB forward with vc and tc for safety. pvt transfer SBA cues for safet. He will d/c home on 08/25 with [facility]. Livier Reid, HUSSAIN [address] [facility], [place], [address], [facility] 08/25/2024 08:54:16
[2024-09-06 09:45] LABS: Basophils Percent Auto 0.5 % (0.2-1.2); Eosinophils Percent Auto 0.4 % (0-4.4); Hematocrit 39.4 % (42.0-52.0); Hemoglobin 14.3 g/dL (14.0-18.0); Immature Granulocyte Absolute 0.04 K/mm3 (0.00-0.031); Immature Granulocyte Percent A 0.5 % (0-0.5); Lymphocytes Absolute Auto 0.74 K/mm3 (0.9-3.2); Lymphocytes Percent Auto 9.3 % (18.3-44.2); Mean Corpuscular HGB Conc 36.3 g/dl (32-36); Mean Corpuscular Hemoglobin 34.2 pg (26-34); Mean Corpuscular Volume 94.3 fl (80-100); Mean Platelet Volume 9.4 fl (7.4-10.4); Monocytes Absolute Auto 0.7 K/mm3 (0.1-0.6); Monocytes Percent Auto 8.8 % (2.6-8.5); Neutrophils Absolute Auto 6.4 K/mm3 (1.3-6.7); Neutrophils Percent Auto 80.5 % (45.5-73.1); Platelet Count Result 250 k/mm3 (150-375); Red Blood Count 4.18 M/mm3 (4.6-6.20); Red Cell Distribution Width 14.5 % (11.5-14.5)
--- NOTE | 2024-09-06 09:47 | PC.NURSE ---
Norton draining pus, dark tea colored urine. Pt states relief after norton insertion.
[2024-09-06 09:55] LABS: Alanine Aminotransferase 12 U/L (6-50); Albumin Level 3.6 g/dL (3.5-5.1); Alkaline Phosphatase 78 U/L (38-126); Anion Gap 9 mmol/L (4-12); Aspartate Amino Transferase 15 U/L (17-59); Bilirubin,Total 1.4 mg/dL (0.2-1.3); Blood Urea Nitrogen 13 mg/dL (9-20); Calcium 8.5 mg/dL (8.4-10.2); Carbon Dioxide 23 mmol/L (22-30); Chloride 106 mmol/L (98-107); Estimated CRCL calculation 54 ml/min; Estimated Glomerular Filt Rate > 60; Glucose 118 mg/dL (65-110); Potassium 3.6 mmol/L (3.4-5.0); Sodium 138 mmol/L (137-145)
[2024-09-06 10:13] LABS: Add Urine Microscopic? YES; Appearance Urine Turbid (Clear); Bacteria Urine 4+ /hpf; Bilirubin Urine Negative (Negative); Blood Urine 3+ (Negative); Color Urine Yellow (Yellow); Glucose Urine UA Negative (Negative); Ketones Urine Negative (Negative); Leukocyte Esterase Ur 3+ LEU/UL (Negative); Need Manual Microscopic Reviewed; Nitrate Urine Negative (Negative); Protein Urine 2+ mg/dL (Negative); RBC Urine 21-50 /hpf (0-2); Squamous Epithelial Cell Urine Few /hpf (Few); Triple Phosphate Crystal Urine Present /hpf; WBC Clumps Urine Present /HPF; WBC Urine 51-100 /hpf (0-3)
--- NOTE | 2024-09-06 10:14 | ED.GENADULT ---
HPI - General Adult General Chief complaint: Urogenital-Male Stated complaint: catheter issue Time Seen by Provider: 09/06/24 08:32 History of Present Illness HPI narrative: 88-year-old male presents emergency department for evaluation for urinary retention. Patient does have indwelling Gregory catheter. Patient states that he was discharged from her rehab facility approximately 2 weeks ago and has been home since that time. Patient reports he has had decreased urinary output and increased urinary pressure last few days. Patient states he is scheduled to have a kidney stone removed on Saturday. Related Data Home Medications ?Medication ?Instructions ?Recorded ?Confirmed ?Last Taken ?Type aspirin 81 mg tablet,delayed 81 mg PO DAILY 06/05/23 09/06/24 09/05/24 History release bisacodyl 5 mg tablet,delayed 5 mg PO TID 06/05/23 09/06/24 09/05/24 History release (Dulcolax (bisacodyl)) finasteride 5 mg tablet 5 mg PO DAILY 06/05/23 09/06/24 09/05/24 History finasteride 5 mg tablet 5 mg PO DAILY 07/27/24 09/06/24 Unknown History tamsulosin 0.4 mg capsule 0.4 mg PO Q24H 07/27/24 09/06/24 09/05/24 History Allergies Allergy/AdvReac Type Severity Reaction Status Date / Time No Known Allergies Allergy Verified 09/06/24 09:44 Review of Systems Review of Systems: All systems reviewed & are unremarkable except as noted in HPI and below PMFSH Past Medical History Medical History (Updated 09/06/24 @ 18:15 by Morro Elmore MD) Frequent falls Insomnia Dementia Elevated PSA BPH with obstruction/lower urinary tract symptoms Benign prostatic hyperplasia Glaucoma Blindness and low vision PAF (paroxysmal atrial fibrillation) Weak urinary stream Hypertension Cerebrovascular accident Surgical History Surgical History History of left inguinal hernia repair (~2005) History of placement of ureteral stent History of cystoscopy Family History Family History Daughter Carcinoma of colon Other Coronary artery disease Diabetes mellitus Unknown family medical history Social History Social History Social History: Surrogate medical decision maker: Haley Gallardo, spouse ([phone]). Code status: Full code. Smoking status: Never smoker Alcohol intake: never Substance use: never Do You Feel Safe in your Home?: Yes Lack of Transportation: No Lack of Food: Never True Current Housing: I Have Housing Concerned About Future Housing: No Difficulty Paying Gas/Electric Bills: No Difficulty Paying for Meds: No Currently Unemployed: No Education: Grade School Difficulty w/ Childcare or Family Care: No Gender identity (if verbalized by the patient): Male Spiritual care concerns: No Course Vital Signs Vital signs: Vital Signs Temperature 97.7 F 09/06/24 08:28 Pulse Rate 89 09/06/24 08:28 Respiratory Rate 18 09/06/24 08:28 Blood Pressure 164/94 H 09/06/24 08:28 Pulse Oximetry 97 09/06/24 08:28 Oxygen Delivery Room Air 09/06/24 08:28 Temperature 97.8 F 09/06/24 09:45 Pulse Rate 81 09/06/24 16:11 Respiratory Rate 16 09/06/24 16:11 Blood Pressure 105/79 09/06/24 16:11 Pulse Oximetry 96 09/06/24 17:02 Oxygen Delivery Room Air 09/06/24 17:02 Medical Decision Making MDM Narrative Medical decision making narrative: 88-year-old male presenting emergency department for evaluation for urinary retention. Patient's Gregory catheter was blocked was exchanged in patient and greater than 1 L of urinary output. Urine was very concerning for a urinary tract infection. Patient is afebrile with no leukocytosis. Patient does have some feelings of increased fatigue so patient was started on antibiotics in the emergency department. Family and patient do not feel that he would do well at home due to his excessive fatigue so patient was admitted to the hospitalist. Urology consult was placed as patient is post have the stone removed tomorrow per family. Differential Diagnosis Differential Diagnosis: Abnormal UA, UTI, urinary obstruction, Gregory catheter issue, acute kidney injury, sepsis Vital Signs Vital Signs: Vital Signs Temperature 97.7 F 09/06/24 08:28 Pulse Rate 89 09/06/24 08:28 Respiratory Rate 18 09/06/24 08:28 Blood Pressure 164/94 H 09/06/24 08:28 Pulse Oximetry 97 09/06/24 08:28 Oxygen Delivery Room Air 09/06/24 08:28 Temperature 97.8 F 09/06/24 09:45 Pulse Rate 81 09/06/24 16:11 Respiratory Rate 16 09/06/24 16:11 Blood Pressure 105/79 09/06/24 16:11 Pulse Oximetry 96 09/06/24 17:02 Oxygen Delivery Room Air 09/06/24 17:02 Lab Data Lab results reviewed: Yes I reviewed the patient's lab results. 09/06/24 09:36 09/06/24 09:36 Labs: Lab Results 09/06/24 Range/Units 09:36 WBC 8.0 (4.5-10.0) K/mm3 RBC 4.18 L (4.6-6.20) M/mm3 Hgb 14.3 (14.0-18.0) g/dL Hct 39.4 L (42.0-52.0) % MCV 94.3 (80-100) fl MCH 34.2 H (26-34) pg MCHC 36.3 H (32-36) g/dl RDW 14.5 (11.5-14.5) % Plt Count 250 (150-375) k/mm3 MPV 9.4 (7.4-10.4) fl Immature Gran % (Auto) 0.5 (0-0.5) % Neut % (Auto) 80.5 H (45.5-73.1) % Lymph % (Auto) 9.3 L (18.3-44.2) % [place] % (Auto) 8.8 H (2.6-8.5) % Eos % (Auto) 0.4 (0-4.4) % Baso % (Auto) 0.5 (0.2-1.2) % Lymph # (Auto) 0.74 L (0.9-3.2) K/mm3 [place] # (Auto) 0.7 H (0.1-0.6) K/mm3 Eos # (Auto) 0.0 (0-0.3) K/mm3 Baso # (Auto) 0.0 (0.0-0.1) K/mm3 Abs Immat Gran (auto) 0.04 H (0.00-0.031) K/mm3 Absolute Neuts (auto) 6.4 (1.3-6.7) K/mm3 Absolute Nucleated RBC 0.000 (0.0-0.012) K/mm3 Nucleated RBC % 0.0 (0.0-0.2) % Sodium 138 (137-145) mmol/L Potassium 3.6 (3.4-5.0) mmol/L Chloride 106 (98-107) mmol/L Carbon Dioxide 23 (22-30) mmol/L Anion Gap 9 (4-12) mmol/L BUN 13 (9-20) mg/dL Creatinine 0.90 (0.7-1.3) mg/dL Estim Creat Clear Calc 54 ml/min Estimated GFR > 60 (59 - ) Glucose 118 H (65-110) mg/dL Calcium 8.5 (8.4-10.2) mg/dL Total Bilirubin 1.4 H (0.2-1.3) mg/dL AST 15 L (17-59) U/L ALT 12 (6-50) U/L Alkaline Phosphatase 78 (38-126) U/L Total Protein 7.0 (6.3-8.2) g/dL Albumin 3.6 (3.5-5.1) g/dL Urine Color Yellow (Yellow) Urine Appearance Turbid H (Clear) Urine pH 8.0 (5.0-9.0) Ur Specific [place] 1.010 (1.001-1.035) Urine Protein 2+ H (Negative) mg/dL Urine Glucose (UA) Negative (Negative) mg/dL Urine Ketones Negative (Negative) mg/dL Ur Blood (Man) 3+ H (Negative) Urine Nitrate Negative (Negative) Urine Bilirubin Negative (Negative) Urine Urobilinogen 1.0 (<2.0) mg/dL Add Ur Microanalysis Reviewed Leukocyte Esterase Rfl 3+ H (Negative) JONI/UL Urine RBC 21-50 H (0-2) /hpf Urine WBC 51-100 H (0-3) /hpf Urine WBC Clumps Present H (None) /HPF Ur Squamous Epith Cells Few (Few) /hpf Triple Phos Crystals Present H (None) /hpf Urine Bacteria 4+ /hpf Urine Casts 3-5 Imaging Data Radiologist's impression: Impressions Abdomen/Pelvis CT 09/06/24 10:43 IMPRESSION: 1. Tiny left kidney stones. Bilateral double-J stents. Bilateral renal cysts. 2. No evidence of appendicitis, diverticulitis or intestinal obstruction. 3. Underfilled urinary bladder with thickened wall. Further evaluation advised. Discharge Plan Discharge Clinical Impression: Acute UTI Patient Disposition: Still a Patient Condition: Stable
--- NOTE | 2024-09-06 14:28 | P.HP_ITS ---
H&P: HPI History of Present Illness Date/Time: 09/06/24 14:28 Chief Complaint: Catheter Issue Narrative: 88 y/o M presents here with Norton catheter issues with PMH of BPH w/obstruction/symptoms, HTN, glaucoma, HTN, dementia, and CVA. The patient presents here from home for further evaluation of Norton catheter issues. He reports he initially developed increased urinary pressure and decreased urinary output approximately XX days ago. He currently has a indwelling Norton catheter. He was recently admitted from 07/27/24-08/02/24 for sepsis, UTI, and hydroureteronephrosis secondary to calculi. He underwent a cystoscopy and bilateral stent placement. Patient also started on CBI for hematuria. A void trial was attempted, however patient developed urinary retention. Plan was for a voiding trial at his SNF (patient failed approx 1 week ago). The patient also developed AFib RVR during his admission, the patient was started on metoprolol and Eliquis and the patient's lisinopril was discontinued. The patient also has a history of kidney stones with a planned stone removal on Saturday (09/07). Upon arrival to the emergency department, the patient's Norton was exchanged and the patient had 1L of dark, malodorous, erring on purulent output. Initial VS at presentation: 97.7? F, HR 89, R 18, 164/94, and 97% on RA. ED workup showed: No leukocytosis, no anemia, creatinine 0.9 and GFR >60, UA suspicious for UTI. Review of Systems Review of Systems: All systems reviewed & are unremarkable except as noted in HPI and below PMFSH Past Medical History Medical History Frequent falls Insomnia Dementia Elevated PSA BPH with obstruction/lower urinary tract symptoms Benign prostatic hyperplasia Glaucoma Blindness and low vision PAF (paroxysmal atrial fibrillation) Weak urinary stream Hypertension Cerebrovascular accident Surgical History Surgical History History of left inguinal hernia repair (~2005) History of placement of ureteral stent History of cystoscopy Family History Family History Daughter Carcinoma of colon Other Coronary artery disease Diabetes mellitus Unknown family medical history Social History Social History Social History: Surrogate medical decision maker: Haley Gallardo, spouse ([phone]). Code status: Full code. Smoking status: Never smoker Alcohol intake: never Substance use: never Do You Feel Safe in your Home?: Yes Lack of Transportation: No Lack of Food: Never True Current Housing: I Have Housing Concerned About Future Housing: No Difficulty Paying Gas/Electric Bills: No Difficulty Paying for Meds: No Currently Unemployed: No Education: Grade School Difficulty w/ Childcare or Family Care: No Gender identity (if verbalized by the patient): Male Spiritual care concerns: No Meds Home Medications and Allergies Home Medications ?Medication ?Instructions ?Recorded ?Confirmed ?Type aspirin 81 mg tablet,delayed 81 mg PO DAILY 06/05/23 09/06/24 History release bisacodyl 5 mg tablet,delayed 5 mg PO TID 06/05/23 09/06/24 History release (Dulcolax (bisacodyl)) finasteride 5 mg tablet 5 mg PO DAILY 06/05/23 09/06/24 History lisinopril 20 mg tablet 20 mg PO DAILY #90 tabs 07/03/24 09/06/24 Rx tamsulosin 0.4 mg capsule 0.4 mg PO Q24H 07/27/24 09/06/24 History sulfamethoxazole 800 1 tablet PO Q12H 9 days #18 tabs 08/02/24 09/06/24 Rx mg-trimethoprim 160 mg tablet (Bactrim DS) apixaban 2.5 mg tablet (Eliquis) 2.5 mg PO Q12HR #60 tabs 08/27/24 09/06/24 Rx metoprolol tartrate 25 mg tablet 12.5 mg (1/2 x 25 mg) PO BID #30 08/27/24 09/06/24 Rx tabs Allergies Allergy/AdvReac Type Severity Reaction Status Date / Time No Known Allergies Allergy Verified 09/06/24 09:44 Vital Signs Vital Signs - 24 hr 09/06/24 08:28 09/06/24 09:45 09/06/24 11:03 Temperature 97.7 F 97.8 F Pulse Rate 89 79 77 Respiratory Rate 18 16 16 Blood Pressure 164/94 H 119/70 109/80 Pulse Oximetry 97 96 97 Oxygen Delivery Room Air Exam Const: General: comfortable and no acute distress Other: , male, overweight body habitus, nontoxic appearance HENMT: Face/Nose/Sinus: Normal nares present Mouth: Yes moist mucous membranes Eyes: Sclera: sclerae normal Pupils: Equal, round and reactive pupils present Other: reduced vision bilat with horizontal nystagmus. Resp: Effort & Inspection: normal respiratory effort Auscultation: clear to auscultation bilaterally Cardio: Rate: regular rate Rhythm: regular rhythm Other: S1-S2 present without murmur, rub, ectopy GI: Other: Abdomen soft, nondistended, nontender. Normoactive bowel sounds in all quadrants. Skin: General skin exam: normal color and no rashes or lesions noted Wounds: no wounds Neuro: Speech: normal speech Motor exam (neuro): 5/5 motor strength present throughout Sensory Exam: normal sensation Other: A&O x4 Extrem: General: normal to inspection Psych: Mental Status: mental status grossly normal Affect: normal affect Other: Good insight and judgment, pleasant H&P: Results Labs Labs: Short CBC 09/06/24 Range/Units 09:36 WBC 8.0 (4.5-10.0) K/mm3 Hgb 14.3 (14.0-18.0) g/dL Hct 39.4 L (42.0-52.0) % Plt Count 250 (150-375) k/mm3 BMP 09/06/24 09:36 Sodium 138 Potassium 3.6 Chloride 106 Carbon Dioxide 23 BUN 13 Creatinine 0.90 Glucose 118 H Calcium 8.5 Liver Function 09/06/24 Range/Units 09:36 Total Bilirubin 1.4 H (0.2-1.3) mg/dL AST 15 L (17-59) U/L ALT 12 (6-50) U/L Alkaline Phosphatase 78 (38-126) U/L Albumin 3.6 (3.5-5.1) g/dL Urine 09/06/24 Range/Units 09:36 Urine Color Yellow (Yellow) Urine Appearance Turbid H (Clear) Urine pH 8.0 (5.0-9.0) Ur Specific [place] 1.010 (1.001-1.035) Urine Protein 2+ H (Negative) mg/dL Urine Glucose (UA) Negative (Negative) mg/dL Assessment and Plan Assessment and plan (1) Norton catheter problem: Qualifiers: Encounter type: initial encounter Qualified Code(s): T83.9XXA - Unspecified complication of genitourinary prosthetic device, implant and graft, initial encounter Code(s): T83.9XXA - Unspecified complication of genitourinary prosthetic device, implant and graft, initial encounter Status: Acute Assessment and Plan: - norton exchanged on 08/08 with 1L of dark/malodorous output - renal function at baseline - UA suspicious for UTI, see below - continue Flomax and finasteride - monitor I&Os - void trial at [facility] failed approx 1 week ago (2) Acute UTI: Code(s): N39.0 - Urinary tract infection, site not specified Status: Acute Assessment and Plan: - UA: Turbid, 2+ protein, 3+ blood, 3+ leuks, 21-50 RBC, 51-100 WBC, few epithelial cells, triple phos crystals present, 4+ bacteria. - UC pending - previous micro reviewed 07/27/2024: Staphylococcus Simulans 06/08/2022: Coags negative Staph, not saprophyti - started on Ceftriaxone on 09/06, will transition patient to Levaquin based off most recent urine culture sensitivities while awaiting current UC (3) Afib: Qualifiers: Atrial fibrillation type: paroxysmal Qualified Code(s): I48.0 - Paroxysmal atrial fibrillation Code(s): I48.91 - Unspecified atrial fibrillation Status: Chronic Assessment and Plan: - recent diagnosis during most recent admission (Jul 2024) - continue home medications: Metoprolol and Eliquis (4) Hypertension: Qualifiers: Hypertension type: primary hypertension Qualified Code(s): I10 - Essential (primary) hypertension Code(s): I10 - Essential (primary) hypertension Status: Chronic Assessment and Plan: - chronic, currently 126/73 - continue home medications: Lisinopril and metoprolol - monitor Plan Recent stones with stent placement early last month. Plan for outpatient stone removal tomorrow, 09/07. Urology consulted. No evident changes on CT. Diet: Heart healthy GI Prophylaxis: Not currently indicated DVT Prophylaxis: Eliquis Lines: Peripheral Code Status: Full code Quality VTE Prophylaxis VTE prophylaxis: pharmacologic ordered Hospitalist MIPS Advance Care Plan I have confirmed that the patient's Advanced Care Plan is present, code status is documented, or surrogate decision maker is listed in patient medical record.: Yes Medication Reconciliation I have utilized all available resources to obtain, update and review the patients current medications (includes all prescriptions, OTC, herbals, cannabis, and nutritional supplements).: Yes
--- NOTE | 2024-09-06 16:00 | PC.NURSE ---
Attempted to call report, nurse will call back in 5 min.
--- NOTE | 2024-09-06 16:33 | ADMGEN ---
This patient, Bernardo Gallardo, was admitted to Medical Room 240-01. Patient/family oriented to hospital policies and general routines including ID bracelet, bed and alarms, visiting hours, pain management, procedures, bathroom and other care routines, personal items, smoking policy, room service/diet, and visiting hours. Information on how to activate the Rapid Response Team has been discussed. Patient/Family are encouraged to report perceived risks to care and to ask questions if they do not understand what they are told or what they should do.
[2024-09-06] MEDS: levoFLOXacin 750 MG/D5W 150 ML 750 MG/150 ML BAG 100 MG IVPB (16:38)
[2024-09-06] MEDS: APIXABAN 2.5 MG TABLET PO (20:44)
[2024-09-06] MEDS: TAMSULOSIN HCL 0.4 MG CAPSULE PO ×2 (20:44→21:10)
[2024-09-06] MEDS: METOPROLOL TARTRATE 12.5 MG TABLET PO (20:44)
[2024-09-06] MEDS: ACETAMINOPHEN 325 MG TABLET 650 MG PO (20:44)
[2024-09-07 04:43] LABS: Basophils Percent Auto 0.7 % (0.2-1.2); Eosinophils Absolute Auto 0.2 K/mm3 (0-0.3); Eosinophils Percent Auto 3.4 % (0-4.4); Hematocrit 37.6 % (42.0-52.0); Hemoglobin 13.5 g/dL (14.0-18.0); Immature Granulocyte Absolute 0.03 K/mm3 (0.00-0.031); Immature Granulocyte Percent A 0.5 % (0-0.5); Lymphocytes Absolute Auto 1.67 K/mm3 (0.9-3.2); Lymphocytes Percent Auto 28.2 % (18.3-44.2); Mean Corpuscular HGB Conc 35.9 g/dl (32-36); Mean Corpuscular Hemoglobin 33.9 pg (26-34); Mean Corpuscular Volume 94.5 fl (80-100); Mean Platelet Volume 9.4 fl (7.4-10.4); Monocytes Absolute Auto 0.7 K/mm3 (0.1-0.6); Monocytes Percent Auto 11.3 % (2.6-8.5); Neutrophils Absolute Auto 3.3 K/mm3 (1.3-6.7); Neutrophils Percent Auto 55.9 % (45.5-73.1); Platelet Count Result 250 k/mm3 (150-375); Red Blood Count 3.98 M/mm3 (4.6-6.20); Red Cell Distribution Width 14.4 % (11.5-14.5); White Blood Count 5.9 K/mm3 (4.5-10.0)
[2024-09-07 04:53] LABS: Anion Gap 6 mmol/L (4-12); Blood Urea Nitrogen 14 mg/dL (9-20); Calcium 8.2 mg/dL (8.4-10.2); Carbon Dioxide 26 mmol/L (22-30); Chloride 105 mmol/L (98-107); Estimated CRCL calculation 51 ml/min; Estimated Glomerular Filt Rate > 60; Glucose 95 mg/dL (65-110); Potassium 3.5 mmol/L (3.4-5.0); Sodium 137 mmol/L (137-145)
[2024-09-07 05:29] VITALS: BP 115/61; PULSE 68; RESP 16; TEMP 36.9; O2SAT 95
--- NOTE | 2024-09-07 06:55 | WPDURCON ---
Assessment and Plan Assessment and plan (1) Urinary retention due to benign prostatic hyperplasia: Code(s): N40.1 - Benign prostatic hyperplasia with lower urinary tract symptoms; R33.8 - Other retention of urine Status: Acute (2) Hydroureteronephrosis: Code(s): N13.30 - Unspecified hydronephrosis Status: Acute Assessment and Plan: Urinary retention with recent bilateral hydronephrosis. This is been managed since July with a chronic indwelling Gregory catheter and bilateral ureteral stents Acute problems with poorly draining catheter likely due to lower urinary tract infection. This seems to be resolved with catheter replacement overnight and initiation of antibiotics pending culture. Continue Tamsulosin/Finasteride and catheter drainage for now. Will arrange outpatient urodynamics following discharge. Urology Consult Note HPI Date Seen: 09/07/24 Requesting Physician: Clinton Glynn MD Primary Care Provider: Mihir Grant MD Consult Narrative Narrative: Bernardo Gallrado is a 88 year old male with a longstanding history of BPH with a ventral urinary retention. And July 2024 he was admitted and CT imaging demonstrated prostate enlargement with bilateral hydronephrosis. Bilateral ureteral stents were placed by Dr. Constantino on July 27, 2024. He has failed a voiding trial at his [place] [facility] facility within the past 2 weeks. He presents with a poorly draining catheter. The catheter was replaced in the ER and is now draining clear urine. Reportedly, urine output was grossly purulent at the time of catheter exchange. Review of Systems Cardiovascular: Cardiovascular: Denies chest pain, Denies lightheadedness, Denies palpitations and Denies dyspnea Respiratory: Respiratory: Denies dyspnea Gastrointestinal: Gastrointestinal: Denies diarrhea, Denies nausea and Denies vomiting Genitourinary: Genitourinary: Denies hematuria and Denies dysuria Endocrine: Endocrine: Denies palpitations [facility] Past Medical History Medical History Frequent falls Insomnia Dementia Elevated PSA BPH with obstruction/lower urinary tract symptoms Benign prostatic hyperplasia Glaucoma Blindness and low vision PAF (paroxysmal atrial fibrillation) Weak urinary stream Hypertension Cerebrovascular accident Surgical History Surgical History History of left inguinal hernia repair (~2005) History of placement of ureteral stent History of cystoscopy Family History Family History Daughter Carcinoma of colon Other Coronary artery disease Diabetes mellitus Unknown family medical history Social History Social History Social History: Surrogate medical decision maker: Haley Gallardo, spouse ([phone]). Code status: Full code. Smoking status: Never smoker Alcohol intake: never Substance use: never Do You Feel Safe in your Home?: Yes Lack of Transportation: No Lack of Food: Never True Current Housing: I Have Housing Concerned About Future Housing: No Difficulty Paying Gas/Electric Bills: No Difficulty Paying for Meds: No Currently Unemployed: No Education: Grade School Difficulty w/ Childcare or Family Care: No Gender identity (if verbalized by the patient): Male Spiritual care concerns: No Meds Home Medications and Allergies Home Medications ?Medication ?Instructions ?Recorded ?Confirmed ?Type aspirin 81 mg tablet,delayed 81 mg PO DAILY 06/05/23 09/06/24 History release bisacodyl 5 mg tablet,delayed 5 mg PO TID 06/05/23 09/06/24 History release (Dulcolax (bisacodyl)) finasteride 5 mg tablet 5 mg PO DAILY 06/05/23 09/06/24 History lisinopril 20 mg tablet 20 mg PO DAILY #90 tabs 07/03/24 09/06/24 Rx tamsulosin 0.4 mg capsule 0.4 mg PO Q24H 07/27/24 09/06/24 History sulfamethoxazole 800 1 tablet PO Q12H 9 days #18 tabs 08/02/24 09/06/24 Rx mg-trimethoprim 160 mg tablet (Bactrim DS) apixaban 2.5 mg tablet (Eliquis) 2.5 mg PO Q12HR #60 tabs 08/27/24 09/06/24 Rx metoprolol tartrate 25 mg tablet 12.5 mg (1/2 x 25 mg) PO BID #30 08/27/24 09/06/24 Rx tabs Allergies Allergy/AdvReac Type Severity Reaction Status Date / Time No Known Allergies Allergy Verified 09/06/24 09:44 Vital Signs Vital Signs - 24 hr 09/06/24 08:28 09/06/24 09:45 09/06/24 11:03 Temperature 97.7 F 97.8 F Pulse Rate 89 79 77 Respiratory Rate 18 16 16 Blood Pressure 164/94 H 119/70 109/80 Pulse Oximetry 97 96 97 Oxygen Delivery Room Air 09/06/24 14:42 09/06/24 16:11 09/06/24 17:02 Temperature Pulse Rate 79 81 Respiratory Rate 18 16 Blood Pressure 126/73 105/79 Pulse Oximetry 96 96 96 Oxygen Delivery Room Air 09/06/24 20:00 09/06/24 20:52 09/06/24 20:52 Temperature 98.9 F 98.9 F Pulse Rate 72 72 72 Respiratory Rate 16 16 16 Blood Pressure 123/68 123/68 Pulse Oximetry 97 97 97 Oxygen Delivery Room Air 09/07/24 05:29 Temperature 98.4 F Pulse Rate 68 Respiratory Rate 16 Blood Pressure 115/61 Pulse Oximetry 95 Oxygen Delivery Exam Const: General: no acute distress Resp: Effort & Inspection: normal respiratory effort GI: Inspection: non-distended GI Palp: No abdominal tenderness and No Guarding due to palpation present (GI) Auscultation: normal bowel sounds : General: Yes bladder normal to inspection Male General Exam: Yes normal external exam Urinary Catheter: Urinary Catheter: patent and draining and urine clear Results Labs 09/07/24 03:59 09/07/24 03:59 Labs: Short CBC 09/06/24 09/07/24 Range/Units 09:36 03:59 WBC 8.0 5.9 (4.5-10.0) K/mm3 Hgb 14.3 13.5 L (14.0-18.0) g/dL Hct 39.4 L 37.6 L (42.0-52.0) % Plt Count 250 250 (150-375) k/mm3 BMP 09/06/24 09/07/24 09:36 03:59 Sodium 138 137 Potassium 3.6 3.5 Chloride 106 105 Carbon Dioxide 23 26 BUN 13 14 Creatinine 0.90 0.95 Glucose 118 H 95 Calcium 8.5 8.2 L Liver Function 09/06/24 Range/Units 09:36 Total Bilirubin 1.4 H (0.2-1.3) mg/dL AST 15 L (17-59) U/L ALT 12 (6-50) U/L Alkaline Phosphatase 78 (38-126) U/L Albumin 3.6 (3.5-5.1) g/dL Urine 09/06/24 Range/Units 09:36 Urine Color Yellow (Yellow) Urine Appearance Turbid H (Clear) Urine pH 8.0 (5.0-9.0) Ur Specific [place] 1.010 (1.001-1.035) Urine Protein 2+ H (Negative) mg/dL Urine Glucose (UA) Negative (Negative) mg/dL
[2024-09-07 08:04] VITALS: BP 128/76; PULSE 97; RESP 16; TEMP 36.4; O2SAT 97
[2024-09-07 08:07] VITALS: PULSE 70; O2SAT 97
[2024-09-07] MEDS: lisinopriL 20 MG TABLET PO (08:07)
[2024-09-07] MEDS: METOPROLOL TARTRATE 12.5 MG TABLET PO (08:07)
[2024-09-07] MEDS: FINASTERIDE 5 MG TABLET PO (08:08)
[2024-09-07] MEDS: APIXABAN 2.5 MG TABLET PO (08:08)
[2024-09-07] MEDS: ASPIRIN 81 MG ENTERIC TABLET PO (08:08)
--- NOTE | 2024-09-07 09:45 | P.CDI_ITS ---
CDI Query Clarification Request Clarification request - UTI has been documented, indwelling norton catheter documented. Please clarify if UTI is: * due to/associated with indwelling norton catheter * not due to/associated with indwelling norton catheter * unable to determine The medical chart reflects the following: (1) Norton catheter problem: Qualifiers: Encounter type: initial encounter Qualified Code(s): T83.9XXA - Unspecified complication of genitourinary prosthetic device, implant and graft, initial encounter Code(s): T83.9XXA - Unspecified complication of genitourinary prosthetic device, implant and graft, initial encounter Status: Acute Assessment and Plan: - norton exchanged on 08/08 with 1L of dark/malodorous output - renal function at baseline - UA suspicious for UTI, see below - continue Flomax and finasteride - monitor I&Os - void trial at [place] failed approx 1 week ago (2) Acute UTI: Code(s): N39.0 - Urinary tract infection, site not specified Status: Acute Assessment and Plan: - UA: Turbid, 2+ protein, 3+ blood, 3+ leuks, 21-50 RBC, 51-100 WBC, few epithelial cells, triple phos crystals present, 4+ bacteria. - UC pending - previous micro reviewed 07/27/2024: Staphylococcus Simulans 06/08/2022: Coags negative Staph, not saprophyti - started on Ceftriaxone on 09/06, will transition patient to Levaquin based off most recent urine culture sensitivities while awaiting current UC Assessment and plan (1) Urinary retention due to benign prostatic hyperplasia: Code(s): N40.1 - Benign prostatic hyperplasia with lower urinary tract symptoms; R33.8 - Other retention of urine Status: Acute (2) Hydroureteronephrosis: Code(s): N13.30 - Unspecified hydronephrosis Status: Acute Assessment and Plan: * Urinary retention with recent bilateral hydronephrosis. This is been managed since July with a chronic indwelling Norton catheter and bilateral ureteral stents * Acute problems with poorly draining catheter likely due to lower urinary tract infection. This seems to be resolved with catheter replacement overnight and initiation of antibiotics pending culture. * Continue Tamsulosin/Finasteride and catheter drainage for now. * Will arrange outpatient urodynamics following discharge. <Yaritza Charlton RN - Last Filed: 09/07/24 13:20> Provider Comments due to/associated with indwelling norton catheter- pt has chronic norton <Juliana Broderick APRN - Last Filed: 09/07/24 14:17>
--- NOTE | 2024-09-07 11:50 | P.DS_ITS ---
DS: Admitting Diagnosis Discharge Date 09/07 Admitting Diagnosis catheter issues DS: Discharge Diagnosis Discharge Diagnosis (1) Gregory catheter problem: Qualifiers: Encounter type: initial encounter Qualified Code(s): T83.9XXA - Unspecified complication of genitourinary prosthetic device, implant and graft, initial encounter Code(s): T83.9XXA - Unspecified complication of genitourinary prosthetic device, implant and graft, initial encounter Status: Acute (2) Acute UTI: Code(s): N39.0 - Urinary tract infection, site not specified Status: Acute (3) Afib: Qualifiers: Atrial fibrillation type: paroxysmal Qualified Code(s): I48.0 - Paroxysmal atrial fibrillation Code(s): I48.91 - Unspecified atrial fibrillation Status: Chronic (4) Hypertension: Qualifiers: Hypertension type: primary hypertension Qualified Code(s): I10 - [place] t[place] (primary) hypertension Code(s): I10 - Essential (primary) hypertension Status: Chronic DS: Summary Hospital Course Hospital Course: 88 y/o M presents here with Gregory catheter issues with PMH of BPH w/obstruction/symptoms, HTN, glaucoma, HTN, dementia, and CVA. The patient presents here from home for further evaluation of Gregory catheter issues. He reports he initially developed increased urinary pressure and decreased urinary output approximately XX days ago. He currently has a indwelling Gregory catheter. He was recently admitted from 07/27/24-08/02/24 for sepsis, UTI, and hydroureteronephrosis secondary to calculi. He underwent a cystoscopy and bilateral stent placement. Gregory was exchanged and it was draining well. Urology was consulted- Urinary retention with recent bilateral hydronephrosis. This is been managed since July with a chronic indwelling Gregory catheter and bilateral ureteral stents. Acute problems with poorly draining catheter likely due to lower urinary tract infection. This seems to be resolved with catheter replacement overnight and initiation of antibiotics pending culture. Continue Tamsulosin/Finasteride and catheter drainage for now. Will arrange outpatient urodynamics following discharge . Nursing got pt up and ambulating and pt did fine. Safe for discharge with a close f/u with urology. Needs to complete antibiotics for UTI. He received levaquin on 09/06, 09/07- will send RX for 5 more days to complete the therapy. worked with nursing- ambulated to the chair with no difficulties. Status at Discharge Functional status at discharge: independent ambulation Overall status at discharge: patient is progressing back to baseline Time Spent with Patient Time attestation: Total time spent providing and/or coordinating discharge services: Time spent: Greater than 30 minutes Exam Narrative: reduced vision bilat with horizontal nystagmus. otherwise fine. Const: General: comfortable and no acute distress Other: , male, overweight body habitus, nontoxic appearance HENMT: Face/Nose/Sinus: Normal nares present Mouth: Yes moist mucous membranes Eyes: Sclera: sclerae normal Pupils: Equal, round and reactive pupils present Other: reduced vision bilat with horizontal nystagmus. Resp: Effort & Inspection: normal respiratory effort Auscultation: clear to auscultation bilaterally Cardio: Rate: regular rate Rhythm: regular rhythm Other: S1-S2 present without murmur, rub, ectopy GI: Other: Abdomen soft, nondistended, nontender. Normoactive bowel sounds in all quadran ts. Skin: General skin exam: normal color and no rashes or lesions noted Wounds: no wounds Neuro: Cranial nerves: Yes Equal, round and reactive pupils present Speech: normal speech Motor exam (neuro): 5/5 motor strength present throughout Sensory Exam: normal sensation Other: A&O x4 Extrem: General: normal to inspection Psych: Mental Status: mental status grossly normal Affect: normal affect Other: Good insight and judgment, pleasant DS: Data Data Completed and Pending Completed studies during hospitalization: abd/pelvis ct Labs on day of discharge: Labs from last 24 hours 09/07/24 03:59 WBC 5.9 RBC 3.98 L Hgb 13.5 L Hct 37.6 L MCV 94.5 MCH 33.9 MCHC 35.9 RDW 14.4 Plt Count 250 MPV 9.4 Immature Gran % (Auto) 0.5 Neut % (Auto) 55.9 Lymph % (Auto) 28.2 [place] % (Auto) 11.3 H Eos % (Auto) 3.4 Baso % (Auto) 0.7 Lymph # (Auto) 1.67 [place] # (Auto) 0.7 H Eos # (Auto) 0.2 Baso # (Auto) 0.0 Abs Immat Gran (auto) 0.03 Absolute Neuts (auto) 3.3 Absolute Nucleated RBC 0.000 Nucleated RBC % 0.0 Sodium 137 Potassium 3.5 Chloride 105 Carbon Dioxide 26 Anion Gap 6 BUN 14 Creatinine 0.95 Estim Creat Clear Calc 51 Estimated GFR > 60 Glucose 95 Calcium 8.2 L Preliminary micro results at discharge 09/06/24 09:36 Blood Culture - Preliminary Blood 09/06/24 09:49 Blood Culture - Preliminary Blood Discharge Plan Discharge Attending physician on discharge: Amelia Blankenship Consulting providers: Karel Hammond Discharging Clinician: Juliana Broderick Patient Disposition: Home, Self-Care Activity: may shower Diet: as tolerated and heart healthy Discharge Instructions: Please take levaqui for UTI and finish the course- i sent RX for [facility]. F/u with your urologist as instructed per DR Borrero Patient Instructions: Antibiotic Form, Apixaban (By mouth), Blood Thinners (GEN) Patient Language: Tuval[place] Stand Alone Forms: General Discharge Information Follow-up/Referrals: Karel Hammond MD [Physician] - 2 Weeks Mihir Grant MD [Primary Care Provider] - 2 Weeks Discharge Medications: New levofloxacin 750 mg tablet 750 mg PO DAILY 5 Days Qty: 5 0RF Continued Eliquis 2.5 mg tablet 2.5 mg PO Q12HR Qty: 60 5RF metoprolol tartrate 25 mg tablet 12.5 mg PO BID Qty: 30 5RF aspirin 81 mg tablet,delayed release (DR/EC) 81 mg PO DAILY bisacodyl [Dulcolax (bisacodyl)] 5 mg tablet,delayed release (DR/EC) 5 mg PO TID tamsulosin 0.4 mg capsule 0.4 mg PO Q24H lisinopril 20 mg tablet 20 mg PO DAILY Qty: 90 1RF Discontinued sulfamethoxazole-trimethoprim [Bactrim DS] 800-160 mg tablet 1 tablet PO Q12H 9 Days Qty: 18 0RF No Action finasteride 5 mg tablet 5 mg PO DAILY Date of admission: 09/06/24 16:54 Primary Care Provider: Mihir Grant Admitting Provider: Clinton Glynn Attending physician on admission: Clinton Glynn Condition: Stable Quality VTE Prophylaxis VTE prophylaxis: pharmacologic ordered Hospitalist MIPS Heart Failure (Exclusion) Patient has history of Heart Transplant or Left Ventricular Assistive Device?: No IF YES, STOP HERE Heart Failure (Qualifier) Patient has current or prior documentation of LVEF less than or equal to 40%, or mod/servere depressed LVSF?: No IF NO, STOP HERE
[2024-09-07 13:48] VITALS: BP 100/61; PULSE 82; RESP 16; TEMP 36.9; O2SAT 96
== END 2024-09-07 15:12 | disposition home or self-care (01) | DRG 699 ==
LOC: ANHED 08:41 → ANH2MED 15:49
PROVIDERS: Student in an Organized Health Care Education/Training Program; Admitting Provider Family Medicine; Emergency Provider Emergency Medicine; PCP Family Medicine Adolescent Medicine; Visit Provider Nurse Practitioner
DX: T83.091A Other mechanical complication of indwelling urethral catheter, initial encounter (principal); T83.511A Infection and inflammatory reaction due to indwelling urethral catheter, initial encounter; N20.0 Calculus of kidney; N40.1 Benign prostatic hyperplasia with lower urinary tract symptoms; R33.8 Other retention of urine; I10 Essential (primary) hypertension; I48.0 Paroxysmal atrial fibrillation; H40.9 Unspecified glaucoma; R29.6 Repeated falls; F03.90 Unspecified dementia, unspecified severity, without behavioral disturbance, psychotic disturbance, mood disturbance, and anxiety; Z86.73 Personal history of transient ischemic attack (TIA), and cerebral infarction without residual deficits; Z79.82 Long term (current) use of aspirin; Z79.01 Long term (current) use of anticoagulants
CPT/HCPCS: 36415; 74176; 80048; 80053; 81001; 85025; 87040; 87086; 96365; 96366; 97161; 97165; 99285; A9270; G0378; J0696; J1956